=== PATIENT | male | born 1960 | race Caucasian/White ===

== ENCOUNTER 2020-03-05 08:10 | Outpatient (RCR) | payer MEDICARE, MEDICAID, SELFPAY | END 2020-05-14 08:17 | disposition home or self-care (01) | LOC: HO.WCC 08:10 | PROVIDERS: Visit Provider Surgery | DX: E11.621 Type 2 diabetes mellitus with foot ulcer (principal); L97.522 Non-pressure chronic ulcer of other part of left foot with fat layer exposed | CPT/HCPCS: 11042; 97597; 99212 ==

== ENCOUNTER → 2020-07-28 08:32 | Outpatient (BNVA) | payer MEDICARE, MEDICAID, SELFPAY | PROVIDERS: PCP Internal Medicine; Visit Provider Nurse Practitioner Gerontology | CPT/HCPCS: Q3014 ==

== ENCOUNTER 2020-08-13 08:03 | Outpatient (RCR) | payer MEDICARE, MEDICAID, SELFPAY | END 2020-11-25 13:22 | disposition home or self-care (01) | LOC: HO.WCC 08:03 | PROVIDERS: PCP Internal Medicine; Visit Provider Surgery | DX: E11.621 Type 2 diabetes mellitus with foot ulcer (principal); L97.522 Non-pressure chronic ulcer of other part of left foot with fat layer exposed; E11.51 Type 2 diabetes mellitus with diabetic peripheral angiopathy without gangrene; F17.210 Nicotine dependence, cigarettes, uncomplicated; I10 Essential (primary) hypertension; L84 Corns and callosities; Z79.899 Other long term (current) drug therapy; Z89.412 Acquired absence of left great toe; Z71.6 Tobacco abuse counseling | CPT/HCPCS: 11042; 15271; 15275; 99212; Q4187 ==

== ENCOUNTER 2020-08-27 08:54 | Outpatient (REF) | payer MEDICARE, MEDICAID, SELFPAY ==
[2020-08-27 10:54] LABS: MANUAL DIFF FLAG NO
[2020-08-27 11:04] LABS: Basophils Absolute Auto 0.1 X10*3/uL (0.0-0.2); Basophils Percent Auto 0.7 % (0-2); Eosinophils Absolute Auto 0.1 X10*3/uL (0.0-0.4); Eosinophils Percent Auto 0.7 % (0-4); Hematocrit 46.3 % (42-52); Hemoglobin 14.6 g/dl (14.0-18.0); Imm Gran Abs Auto 0.08 X10*3/uL (0.00-0.03); Imm Gran Pct Auto 0.8 % (0.0-0.4); Lymphocytes Absolute Auto 1.7 X10*3/uL (1.2-4.9); Lymphocytes Percent Auto 16.5 % (20-40); Mean Corpuscular HGB Conc 31.5 g/dl (31.0-36.0); Mean Corpuscular Hemoglobin 29.3 pg (27.0-33.0); Mean Platelet Volume 10.4 fL (9.4-12.4); Monocytes Absolute Auto 0.9 X10*3/uL (0.1-1.2); Monocytes Percent Auto 9.1 % (2-11); Neutrophils Absolute Auto 7.3 X10*3/uL (2.0-8.3); Neutrophils Percent Auto 72.2 % (45-73); Platelet Count 257 X10*3/uL (160-400); Red Blood Count 4.98 X10*6/uL (4.60-5.80); Red Cell Distribution Width 13.6 % (11.0-16.0); White Blood Count 10.1 X10*3/uL (4.8-10.8)
[2020-08-27 11:12] LABS: Glucose Urine UA >=1000 MG/DL (NEG); Leukocyte Esterase Urine NEG (NEG); Nitrite Urine NEG (NEG); PH 5.5 (5.0-8.0); Urine Blood TRACE (NEG); Urine Ketones NEG (NEG); Urine Protein 1+ MG/DL (NEG-TRACE)
[2020-08-27 11:15] LABS: Appearance Urine CLEAR; Color Urine YELLOW
[2020-08-27 11:20] LABS: Estimated Average Glucose 252 mg/dL; Hemoglobin A1c % 10.4 %
[2020-08-27 11:29] LABS: RBC Urine 0-2 /HPF (0); Squamous Epithelial Cell Urine TRACE /LPF; WBC Urine 0-2 /HPF (0-4)
[2020-08-27 11:32] LABS: Alanine Aminotransferase 13 U/L (0-40); Albumin Level 4.1 g/dL (3.5-5.0); Alkaline Phosphatase 90 U/L (39-117); Anion Gap 15 (12-20); Aspartate Amino Transferase 10 U/L (5-37); Bilirubin Total 0.4 mg/dL (0.0-1.0); Blood Urea Nitrogen 23 mg/dL (9-16); Calcium 9.2 mg/dL (8.4-10.2); Carbon Dioxide 26 mmol/L (22-29); Chloride 103 mmol/L (96-108); Cholesterol 163 mg/dL; Estimated Glomerular Filt Rate 55; Glucose Fasting 305 mg/dL (60-99); HDL Cholesterol 32 mg/dL; LDL Cholesterol Calculated 96 mg/dl; Potassium 4.8 mmol/L (3.3-5.1); Sodium 139 mmol/L (135-145); Triglycerides 175 mg/dL
[2020-08-27 11:37] LABS: Creatinine Urine 60.67 mg/dL; Microalbum/Creatinine Ratio Ur 413.7 ug/mg cr
[2020-08-27 11:57] LABS: TSH reflex Free T4 3.71 uIU/mL (0.32-4.0)
== END 2020-08-27 08:55 | disposition home or self-care (01) ==
LOC: HO.LAB 08:54
PROVIDERS: Absent Provider Nurse Practitioner Gerontology; PCP Internal Medicine; Visit Provider Internal Medicine
DX: I10 Essential (primary) hypertension (principal); L97.529 Non-pressure chronic ulcer of other part of left foot with unspecified severity; I73.9 Peripheral vascular disease, unspecified; E11.52 Type 2 diabetes mellitus with diabetic peripheral angiopathy with gangrene; E11.29 Type 2 diabetes mellitus with other diabetic kidney complication; E66.9 Obesity, unspecified
CPT/HCPCS: 36415; 80053; 80061; 81001; 81003; 82043; 83036; 84443; 85025

== ENCOUNTER → 2020-09-09 08:24 | Outpatient (BNVA) | payer MEDICARE, MEDICAID, SELFPAY | PROVIDERS: PCP Internal Medicine; Visit Provider Nurse Practitioner Gerontology | DX: E11.65 Type 2 diabetes mellitus with hyperglycemia (principal); E11.29 Type 2 diabetes mellitus with other diabetic kidney complication; E66.09 Other obesity due to excess calories; Z68.31 Body mass index [BMI] 31.0-31.9, adult; R80.9 Proteinuria, unspecified; I10 Essential (primary) hypertension; Z71.3 Dietary counseling and surveillance | CPT/HCPCS: Q3014 ==

== ENCOUNTER 2020-10-01 10:48 | Outpatient (REF) | payer MEDICARE, MEDICAID, SELFPAY ==
--- NOTE | ~2020-10-01 | US_ITS ---
EXAMINATION: COLOR-FLOW DUPLEX IMAGING OF THE BILATERAL LOWER EXTREMITY ARTERIAL SYSTEM. VELOCITY MEASUREMENTS THROUGHOUT THE FEMORAL ARTERIES WITH ANKLE-BRACHIAL PERIPHERAL ARTERIAL TESTING. CLINICAL INFORMATION: This is a 60-year-old male with bilateral peripheral vascular disease. Interventional Radiologist: Christian Magdaleno M.D., F.S.I.R., F.Marylin.C.R. RIGHT FEMORAL RUNOFF VELOCITIES: The right common femoral artery measures 93 cm/s and monophasic. The right profunda femoral artery is 47 cm/s and is monophasic. Right proximal superficial femoral artery measures 83 cm/s and monophasic. Mid superficial femoral artery is 97 cm/s and monophasic. Distal right superficial femoral artery measures 66 cm/s and is monophasic. Right popliteal velocity measures 40 cm/s and is monophasic. The posterior tibial artery velocity measures 22 cm/s and was monophasic. The right ankle-brachial index is 0.76. LEFT FEMORAL RUNOFF VELOCITIES: The left common femoral artery measures 147 cm/s and triphasic. The left profunda femoral artery is 58 cm/s and is biphasic. Left proximal superficial femoral artery measures 134 cm/s and monophasic. Mid superficial femoral artery is 119 cm/s and monophasic. Distal left superficial femoral artery measures 80 to cm/s and is monophasic. Left popliteal velocity measures 39 cm/s and is monophasic. The posterior tibial artery velocity measures 57 cm/s and was monophasic. The left ankle-brachial index is 0.75. US/US DYLAN complete IMPRESSION: 1. The right there is monophasic flow throughout the arterial runoff without evidence of focal stenosis. This could represent atherosclerotic inflow disease on the left side. The disease appears to be mild-moderate at rest. 2. On the left there is no focal hemodynamically significant stenosis. However, there are monophasic waveforms throughout the superficial femoral artery and calf vessels. There is mild-moderate hemodynamically significant disease base of the ankle-brachial index.
--- NOTE | ~2020-10-01 | US_ITS ---
EXAMINATION: COLOR-FLOW DUPLEX IMAGING OF THE BILATERAL LOWER EXTREMITY ARTERIAL SYSTEM. VELOCITY MEASUREMENTS THROUGHOUT THE FEMORAL ARTERIES WITH ANKLE-BRACHIAL PERIPHERAL ARTERIAL TESTING. CLINICAL INFORMATION: This is a 60-year-old male with bilateral peripheral vascular disease. Interventional Radiologist: Christian Magdaleno M.D., F.S.I.R., F.A.C.R. RIGHT FEMORAL RUNOFF VELOCITIES: The right common femoral artery measures 93 cm/s and monophasic. The right profunda femoral artery is 47 cm/s and is monophasic. Right proximal superficial femoral artery measures 83 cm/s and monophasic. Mid superficial femoral artery is 97 cm/s and monophasic. Distal right superficial femoral artery measures 66 cm/s and is monophasic. Right popliteal velocity measures 40 cm/s and is monophasic. The posterior tibial artery velocity measures 22 cm/s and was monophasic. The right ankle-brachial index is 0.76. LEFT FEMORAL RUNOFF VELOCITIES: The left common femoral artery measures 147 cm/s and triphasic. The left profunda femoral artery is 58 cm/s and is biphasic. Left proximal superficial femoral artery measures 134 cm/s and monophasic. Mid superficial femoral artery is 119 cm/s and monophasic. Distal left superficial femoral artery measures 80 to cm/s and is monophasic. Left popliteal velocity measures 39 cm/s and is monophasic. The posterior tibial artery velocity measures 57 cm/s and was monophasic. The left ankle-brachial index is 0.75. US/US arterial duplex LE BI IMPRESSION: 1. The right there is monophasic flow throughout the arterial runoff without evidence of focal stenosis. This could represent atherosclerotic inflow disease on the left side. The disease appears to be mild-moderate at rest. 2. On the left there is no focal hemodynamically significant stenosis. However, there are monophasic waveforms throughout the superficial femoral artery and calf vessels. There is mild-moderate hemodynamically significant disease base of the ankle-brachial index.
== END 2020-10-01 10:49 | disposition home or self-care (01) ==
LOC: HO.US 10:48
PROVIDERS: Visit Provider Surgery Vascular Surgery
DX: I73.9 Peripheral vascular disease, unspecified (principal)
CPT/HCPCS: 93923; 93925

== ENCOUNTER → 2020-10-13 10:31 | Outpatient (BNVA) | payer MEDICARE, MEDICAID, SELFPAY | PROVIDERS: PCP Internal Medicine; Visit Provider Dietitian, Registered | DX: E11.29 Type 2 diabetes mellitus with other diabetic kidney complication (principal) | CPT/HCPCS: 97802 ==

== ENCOUNTER → 2020-10-27 13:34 | Outpatient (BNVA) | payer MEDICARE, MEDICAID, SELFPAY | PROVIDERS: PCP Internal Medicine; Visit Provider Nurse Practitioner Gerontology | DX: E11.65 Type 2 diabetes mellitus with hyperglycemia (principal); E11.29 Type 2 diabetes mellitus with other diabetic kidney complication; R80.9 Proteinuria, unspecified; I10 Essential (primary) hypertension; E66.09 Other obesity due to excess calories; Z68.31 Body mass index [BMI] 31.0-31.9, adult | CPT/HCPCS: Q3014 ==

== ENCOUNTER → 2020-12-30 12:12 | Outpatient (BNVA) | payer MEDICARE, MEDICAID, SELFPAY | PROVIDERS: PCP Internal Medicine; Visit Provider Nurse Practitioner Gerontology | DX: E11.65 Type 2 diabetes mellitus with hyperglycemia (principal); E11.29 Type 2 diabetes mellitus with other diabetic kidney complication; E66.09 Other obesity due to excess calories; I10 Essential (primary) hypertension; R80.9 Proteinuria, unspecified; Z68.31 Body mass index [BMI] 31.0-31.9, adult | CPT/HCPCS: Q3014 ==

== ENCOUNTER 2021-05-14 09:19 | Outpatient (RCR) | payer MEDICARE, MEDICAID, SELFPAY ==
--- NOTE | ~2021-05-14 | XR_ITS ---
EXAMINATION: XR FOOT, LEFT CLINICAL INFORMATION: History of left transmetatarsal amputation, fifth, ostial. COMPARISON: September 21, 2018 TECHNIQUE: AP, lateral, and oblique views of the left foot. FINDINGS: There is osteopenia visualized bones. Since previous examination patient is status post Lisfranc amputation. There is some difficulty in visualizing lateral portion of the cuboid bone cortex as well as some indistinctness of the lateral cuneiform. I cannot definitely exclude osteomyelitis on these images. The patient has had other foot x-rays post amputation another institution these would be of help in comparison. No gas within the soft tissues is appreciated. Achilles calcaneal spur present. XR/XR foot LT min 3V IMPRESSION: Status post Lisfranc amputation with poorly visualized cortex about the anterolateral cuboid and distal lateral aspect of the third cuneiform which could be related to osteomyelitis but with osteopenia and postsurgical change this is difficult to evaluate on plain film study.
[2021-05-14 11:17] LABS: MANUAL DIFF FLAG NO
[2021-05-14 11:49] LABS: Basophils Absolute Auto 0.1 X10*3/uL (0.0-0.2); Basophils Percent Auto 0.5 % (0-2); Eosinophils Percent Auto 0.4 % (0-4); Hematocrit 42.7 % (42.0-52.0); Hemoglobin 13.6 g/dl (14.0-18.0); Imm Gran Abs Auto 0.06 X10*3/uL (0.00-0.03); Imm Gran Pct Auto 0.6 % (0.0-0.4); Lymphocytes Absolute Auto 1.2 X10*3/uL (1.2-4.9); Mean Corpuscular HGB Conc 31.9 g/dl (31.0-36.0); Mean Corpuscular Hemoglobin 29.8 pg (27.0-33.0); Mean Corpuscular Volume 93.6 fL (80.0-98.0); Mean Platelet Volume 11.1 fL (9.4-12.4); Monocytes Absolute Auto 1.1 X10*3/uL (0.1-1.2); Monocytes Percent Auto 10.2 % (2-11); Neutrophils Absolute Auto 8.3 x10*3/uL (2.0-8.3); Neutrophils Percent Auto 77.3 % (45-73); Platelet Count 311 X10*3/uL (160-400); Red Blood Count 4.56 X10*6/uL (4.60-5.80); Red Cell Distribution Width 12.5 % (11.0-16.0); White Blood Count 10.8 X10*3/uL (4.8-10.8)
[2021-05-14 12:05] LABS: Anion Gap 15 (12-20); Blood Urea Nitrogen 15 mg/dL (9-16); Calcium 9.5 mg/dL (8.4-10.2); Carbon Dioxide 28 mmol/L (22-29); Chloride 102 mmol/L (96-108); Estimated Glomerular Filt Rate 59; Glucose Random 327 mg/dL (60-115); Potassium 4.7 mmol/L (3.3-5.1); Sodium 140 mmol/L (135-145)
[2021-05-14 12:43] LABS: Erythrocyte Sedimentation Rate 78 MM/HR (0-15)
[2021-05-14 13:58] LABS: Estimated Average Glucose 263 mg/dL; Hemoglobin A1c % 10.8 %
== END 2021-06-09 15:34 | disposition home or self-care (01) ==
LOC: HO.WCC 09:19
PROVIDERS: PCP Internal Medicine; Visit Provider Physician Assistant
DX: E11.621 Type 2 diabetes mellitus with foot ulcer (principal); L97.522 Non-pressure chronic ulcer of other part of left foot with fat layer exposed; M71.072 Abscess of bursa, left ankle and foot; T87.81 Dehiscence of amputation stump; E11.69 Type 2 diabetes mellitus with other specified complication; M86.8X7 Other osteomyelitis, ankle and foot; E11.51 Type 2 diabetes mellitus with diabetic peripheral angiopathy without gangrene; F17.210 Nicotine dependence, cigarettes, uncomplicated; Z79.84 Long term (current) use of oral hypoglycemic drugs; Z89.412 Acquired absence of left great toe; Z89.422 Acquired absence of other left toe(s); Z71.6 Tobacco abuse counseling; Z79.82 Long term (current) use of aspirin; Z79.01 Long term (current) use of anticoagulants; Z79.2 Long term (current) use of antibiotics; Z79.899 Other long term (current) drug therapy; Z95.818 Presence of other cardiac implants and grafts
CPT/HCPCS: 10060; 11042; 36415; 73630; 80048; 83036; 85025; 85652; 86140; 87071; 87077; 87147; 87186; 87205; 99215

== ENCOUNTER 2021-06-02 11:42 | Inpatient (IN) | payer MEDICARE, MEDICAID, SELFPAY ==
--- NOTE | ~2021-06-02 | XR_ITS ---
EXAMINATION: XR FOOT, LEFT CLINICAL INFORMATION: Infection COMPARISON: Left foot radiographs 05/14/2021. TECHNIQUE: AP, lateral, and oblique views of the left foot. FINDINGS: There is been prior Lisfranc amputation. There are scattered gas in the plantar lateral soft tissues. The cuboid appears mottled and now irregular in contour on the lateral view, likely osteomyelitis. Possibility of pathologic fracture cannot be excluded. Results called to Jenna Alexander NP in the emergency department at 1625 hours. XR/XR foot LT 2V IMPRESSION: 1. Infection with some gas bubbles in the plantar lateral soft tissues. 2. Ill-defined mineralization cuboid subtle irregular contour on lateral view, likely osteomyelitis. Possibility of pathologic fracture cannot be excluded.
--- NOTE | ~2021-06-02 | CT_ITS ---
EXAMINATION: CT ANGIOGRAM LEFT LOWER EXTREMITY. CLINICAL INFORMATION: Infection. Concern for osteomyelitis. COMPARISON: The frontal radiograph on 06/02/2021. TECHNIQUE: Routine lower extremity CTA protocol was performed with contrast utilizing 80 mL of Omnipaque 350. Multiplanar reformatted images and MIP images were created and reviewed. This CT examination was performed using dose optimization techniques as appropriate, variously including the following: *Automated exposure control *Adjustment of mA and/or kV according to patient size (this includes techniques or standardized protocols for targeted exams where dose is matched to indication/reason for exam; i.e. extremities or head) *Use of iterative reconstruction technique DLP: 106 mGy-cm FINDINGS: Left lower extremity runoff reveals a widely patent popliteal artery. The tibioperoneal trunk is widely patent. The anterior tibial artery is patent proximally and tapers gradually at the level of the midcalf. There is diminutive flow to the distal calf; however, it is not seen beyond the ankle. The posterior tibial artery is widely patent to the foot. The peroneal artery is seen to the level of the ankle. There is extensive subcutaneous edema of the distal calf and ankle. Extensive edema and subcutaneous gas is seen throughout the soft tissues of the ankle and foot. Gas is seen throughout the subcutaneous tissues and also seen involving essentially all the bones of the foot and ankle including the distal tibia and fibula, calcaneus, bones of the midfoot and the remaining metatarsals. The patient is post Lisfranc amputation. CT/CT angio LE LT IMPRESSION: Left lower extremity runoff reveals a widely patent posterior tibial artery which is seen to the level of the foot. The peroneal artery is seen to the level of the ankle. The anterior tibial artery is markedly diminutive caliber and is seen to the level of the distal calf. There is extensive subcutaneous edema and gas seen throughout the soft tissues and osseous structures of the ankle and foot concerning for infection with bone and soft tissue involvement.
[2021-06-02 14:47] VITALS: BP 157/66; PULSE 94; RESP 18; TEMP 36.9; O2SAT 99; BMI 33.6
[2021-06-02 15:26] LABS: Basophils Absolute Auto 0.1 X10*3/uL (0.0-0.2); Basophils Percent Auto 0.2 % (0-2); Eosinophils Percent Auto 0.1 % (0-4); Hemoglobin 11.7 g/dl (14.0-18.0); Imm Gran Pct Auto 2.5 % (0.0-0.4); Lymphocytes Absolute Auto 1.2 X10*3/uL (1.2-4.9); Lymphocytes Percent Auto 5.1 % (20-40); MANUAL DIFF FLAG SCAN; Mean Corpuscular HGB Conc 30.8 g/dl (31.0-36.0); Mean Corpuscular Hemoglobin 28.1 pg (27.0-33.0); Mean Corpuscular Volume 91.1 fL (80.0-98.0); Monocytes Percent Auto 4.3 % (2-11); Neutrophils Absolute Auto 21.4 x10*3/uL (2.0-8.3); Neutrophils Percent Auto 87.8 % (45-73); Platelet Count 342 X10*3/uL (160-400); Red Blood Count 4.17 X10*6/uL (4.60-5.80); Red Cell Distribution Width 14.4 % (11.0-16.0); SCAN SMEAR FLAG 1; White Blood Count 24.3 X10*3/uL (4.8-10.8)
[2021-06-02 15:37] LABS: Lactic Acid 1.7 mmol/L (0.5-2.0)
[2021-06-02 15:50] LABS: SLIDE REVIEW VERIFIED
[2021-06-02 16:17] LABS: Anion Gap 15 (12-20); Blood Urea Nitrogen 30 mg/dL (9-16); Carbon Dioxide 30 mmol/L (22-29); Chloride 93 mmol/L (96-108); Creatinine Clr Calc Pharmacy 58.9; Estimated Glomerular Filt Rate 46; Glucose Random 675 mg/dL (60-115); Potassium 5.6 mmol/L (3.3-5.1); Sodium 132 mmol/L (135-145)
--- NOTE | 2021-06-02 16:49 | ED_ITS ---
HPI - Wound/Laceration General Chief Complaint: Wound/Laceration Stated Complaint: wound care clinic referral Time Seen by Provider: 06/02/21 16:25 Source: patient Mode of arrival: wheelchair Limitations: no limitations History of Present Illness HPI narrative: 60-year-old male presents from [place] wound care for evaluation of worsening chronic left foot wound. Onset (ago): unknown Extremity Location: left: foot Patient tetanus UTD: Yes Associated symptoms: pain Treatments prior to arrival: bandage Related Data Home Medications Medication Instructions Recorded Confirmed aripiprazole 20 mg tablet 20 mg PO DAILY tab 07/28/20 06/02/21 dorzolamide 22.3 mg-timolol 6.8 1 drp OPHTHALMIC (EYE) BEDTIME 06/02/21 06/02/21 mg/mL eye drops dorzolamide 22.3 mg-timolol 6.8 2 drp OPHTHALMIC (EYE) DAILY 06/02/21 06/02/21 mg/mL eye drops empagliflozin 25 mg tablet 1 tab PO DAILY 06/02/21 06/02/21 (Jardiance) netarsudil 0.02 %-latanoprost 1 drp OPHTHALMIC (EYE) 06/02/21 0.005 % eye drops (Rocklatan) Previous Rx's Medication Instructions Recorded lancets 33 gauge (TRUEplus Lancets) #100 ea 10/27/20 lisinopril 40 mg tablet 40 mg PO DAILY #30 tab 01/05/21 metformin 500 mg tablet 1,000 mg PO BID #120 tab 04/12/21 amlodipine 10 mg tablet 10 mg PO DAILY #30 tab 05/17/21 dulaglutide 0.75 mg/0.5 mL 0.75 mg (0.5 mL) SUBCUT QWEEK #2 ml 05/19/21 subcutaneous pen injector (Trulicity) Allergies Allergy/AdvReac Type Severity Reaction Status Date / Time No Known Allergies Allergy Verified 02/24/21 15:40 [No Known Allergies*] Review of Systems Review of Systems: Constitutional: No Fever, No Chills ENT/Mouth: No Ear Pain, No Hoarseness, No sore throat Eyes: No Eye Pain, No Swelling, No Redness, No Foreign Body Cardiovascular: No Chest Pain, No SOB Respiratory: No Cough, No Dyspnea Gastrointestinal: No Nausea, No Vomiting, No Diarrhea, No abdominal Pain Genitourinary: No Dysuria, No Hematuria Musculoskeletal: positive left foot pain, No Myalgias, No Joint Swelling Skin: Chronic left foot wound, No Skin lacerations, No rash Neuro: No Weakness, positive peripheral Numbness and diabetic neuropathy, No Paresthesias, No Loss of Consciousness, No Dizziness, No Headache Psych: No Anxiety/Panic, No Depression Heme/Lymph: no easy bruising, no Lymphadenopathy Endocrine: No Polyuria, No Polydipsia Yes all other systems are reviewed and are negative [facility] Past Medical History Attestation statement: The following information was validated with the patient. Source: old records reviewed Medical History Benign essential hypertension BMI 31.0-31.9,adult Depression Diabetes mellitus with hyperglycemia Essential hypertension Foot ulcer, left Hearing loss Neuropathy Obesity (BMI 30-39.9) Obesity due to excess calories Peripheral artery disease Proteinuria Smoker Type 2 diabetes mellitus with diabetic peripheral angiopathy with gangrene Type 2 diabetes mellitus with hyperglycemia, without long-term current use of insulin Type 2 diabetes mellitus with other diabetic kidney complication Vision impairment Surgical History History of amputation of left great toe History of throat surgery History of transmetatarsal amputation of left foot Hx of colonoscopy Hx of eye surgery Family History Family History Father No problems noted. Mother Cancer Maternal Grandfather CVD (cardiovascular disease) Diabetes Maternal Grandmother CVD (cardiovascular disease) Social History Social History Household Members: None Housing: Apartment Alcohol intake: never Patient Tobacco Use Status: Current everyday Tobacco user Cigarette Packs Per Day: 1 Second Hand Smoke Exposure: Yes Use of substances other than those prescribed or required for medical reasons: No Advance Directives: No Advance Directives Information Provided: No service: No Current occupational status: disabled Physical Exam Vital Signs: Vital Signs: Last Vital Signs Temp 98.2 F 06/02/21 17:21 Pulse 80 06/02/21 20:10 Resp 19 06/02/21 20:10 BP 133/59 L 06/02/21 20:10 Pulse Ox 98 06/02/21 20:10 BMI result Body Mass Index 33.6 Appearance: Alert. Oriented X3. No acute distress. Eyes: Pupils equal, round and reactive to light. ENT: Pharynx normal. Moist mucous membranes. Neck: Normal inspection. Neck supple. CVS: Normal heart rate and rhythm. Pulses normal. Respiratory: No respiratory distress. Breath sounds normal. Abdomen: Soft and nontender. Skin: Skin warm and dry. Normal skin color. Normal skin turgor. Extremities: Chronic left lower extremity wounds. Neuro: No motor deficit. No sensory deficit. Cranial nerves 2-12 intact. Course Course Course Narrative: 4:25 p.m. call from Radiology regarding finding of likely osteomyelitis to the left lower extremity. Patient is currently in the waiting room. Discussed findings charge nurse. 5:00 p.m. patient updated that with starting IV antibiotics, the patient will be admitted for osteomyelitis. I did discuss case with Dr. Smith, surgeon that referred patient to the emergency department for evaluation from the wound clinic. I discussed labs, we will fluid resuscitate and then order imaging with contrast. 5:10 p.m. patient will be resuscitated with 2 L of fluid, per ideal body weight. Zosyn, and vancomycin ordered. Will repeat labs once fluid resuscitation of 2 L is complete. Blood sugar elevated, ordered 10 IV and 10 subQ insulin. 6:20 p.m. Repeat labs within normal limits. CTA is pending. 7:45 p.m. discussion with hospitalist, plan of care is to admit for osteomyelitis. Consultations Consultation #1: Laura Time: 17:01 Consultation #2: Kristofer Time: 17:32 Consultation #3: Anthony Time: 19:45 MDM - Wound/Laceration MDM Narrative Medical decision making narrative: Chronic left lower extremity wound, osteomyelitis, sepsis Medical Records Attestation: I reviewed the patient's medical records. Lab Data Attestation: I reviewed the patient's lab results. Result diagrams: 06/02/21 15:19 06/02/21 18:17 Labs: Lab Results 06/02/21 06/02/21 06/02/21 Range/Units 15:19 15:19 15:19 WBC 24.3 H (4.8-10.8) X10*3/uL RBC 4.17 L (4.60-5.80) X10*6/uL Hgb 11.7 L (14.0-18.0) g/dl Hct 38.0 L (42.0-52.0) % MCV 91.1 (80.0-98.0) fL MCH 28.1 (27.0-33.0) pg MCHC 30.8 L (31.0-36.0) g/dl RDW 14.4 (11.0-16.0) % Plt Count 342 (160-400) X10*3/uL MPV 12.0 (9.4-12.4) fL Immature Gran % (Auto) 2.5 H (0.0-0.4) % Neut % (Auto) 87.8 H (45-73) % Lymph % (Auto) 5.1 L (20-40) % [place] % (Auto) 4.3 (2-11) % Eos % (Auto) 0.1 (0-4) % Baso % (Auto) 0.2 (0-2) % Lymph # (Auto) 1.2 (1.2-4.9) X10*3/uL [place] # (Auto) 1.0 (0.1-1.2) X10*3/uL Eos # (Auto) 0.0 (0.0-0.4) X10*3/uL Baso # (Auto) 0.1 (0.0-0.2) X10*3/uL Abs Immat Gran (auto) 0.60 H (0.00-0.03) X10*3/uL Absolute Neuts (auto) 21.4 H (2.0-8.3) x10*3/uL Absolute Nucleated RBC 0.000 (0.0-0.012) X10*3/uL Nucleated RBC % (auto) 0.0 (0.0-0.2) /100WBC Smear Tech's Comments VERIFIED Sodium 132 L (135-145) mmol/L Potassium 5.6 H (3.3-5.1) mmol/L Chloride 93 L (96-108) mmol/L Carbon Dioxide 30 H (22-29) mmol/L Anion Gap 15 (12-20) BUN 30 H D (9-16) mg/dL Creatinine 1.54 H (0.5-1.4) mg/dL Estim Creat Clear Calc 58.9 Estimated GFR 46 POC Glucose (60-115) mg/dL Random Glucose 675 H* (60-115) mg/dL Lactic Acid 1.7 (0.5-2.0) mmol/L Calcium 9.0 (8.4-10.2) mg/dL Urine Color Urine Appearance Urine pH (5.0-8.0) Ur Specific [place] (1.005-1.025) Urine Protein (NEG-TRACE) MG/DL Urine Glucose (UA) (NEG) MG/DL Urine Ketones (NEG) MG/DL Urine Blood (NEG) Urine Nitrite (NEG) Ur Leukocyte Esterase (NEG) Urine RBC (0) /HPF Urine WBC (0-4) /HPF Ur Squamous Epith Cells /LPF Urine Bacteria /LPF Urine Yeast /HPF Urine Opiates Screen (Not Detect) Urine Fentanyl Screen (Not Detect) Ur Barbiturates Screen (Not Detect) Ur Phencyclidine Scrn (Not Detect) Ur Amphetamines Screen (Not Detect) U Benzodiazepines Scrn (Not Detect) Urine Cocaine Screen (Not Detect) U Marijuana (THC) Screen (Not Detect) Acetone, Qual Negative (Negative) COVID-19 (GILDA) (Negative) COVID-19 Clin Com 06/02/21 06/02/21 06/02/21 Range/Units 16:57 17:30 18:15 WBC (4.8-10.8) X10*3/uL RBC (4.60-5.80) X10*6/uL Hgb (14.0-18.0) g/dl Hct (42.0-52.0) % MCV (80.0-98.0) fL MCH (27.0-33.0) pg MCHC (31.0-36.0) g/dl RDW (11.0-16.0) % Plt Count (160-400) X10*3/uL MPV (9.4-12.4) fL Immature Gran % (Auto) (0.0-0.4) % Neut % (Auto) (45-73) % Lymph % (Auto) (20-40) % [place] % (Auto) (2-11) % Eos % (Auto) (0-4) % Baso % (Auto) (0-2) % Lymph # (Auto) (1.2-4.9) X10*3/uL [place] # (Auto) (0.1-1.2) X10*3/uL Eos # (Auto) (0.0-0.4) X10*3/uL Baso # (Auto) (0.0-0.2) X10*3/uL Abs Immat Gran (auto) (0.00-0.03) X10*3/uL Absolute Neuts (auto) (2.0-8.3) x10*3/uL Absolute Nucleated RBC (0.0-0.012) X10*3/uL Nucleated RBC % (auto) (0.0-0.2) /100WBC Smear Tech's Comments Sodium (135-145) mmol/L Potassium (3.3-5.1) mmol/L Chloride (96-108) mmol/L Carbon Dioxide (22-29) mmol/L Anion Gap (12-20) BUN (9-16) mg/dL Creatinine (0.5-1.4) mg/dL Estim Creat Clear Calc Estimated GFR POC Glucose 559 H* 419 H* (60-115) mg/dL Random Glucose (60-115) mg/dL Lactic Acid (0.5-2.0) mmol/L Calcium (8.4-10.2) mg/dL Urine Color Urine Appearance Urine pH (5.0-8.0) Ur Specific [place] (1.005-1.025) Urine Protein (NEG-TRACE) MG/DL Urine Glucose (UA) (NEG) MG/DL Urine Ketones (NEG) MG/DL Urine Blood (NEG) Urine Nitrite (NEG) Ur Leukocyte Esterase (NEG) Urine RBC (0) /HPF Urine WBC (0-4) /HPF Ur Squamous Epith Cells /LPF Urine Bacteria /LPF Urine Yeast /HPF Urine Opiates Screen (Not Detect) Urine Fentanyl Screen (Not Detect) Ur Barbiturates Screen (Not Detect) Ur Phencyclidine Scrn (Not Detect) Ur Amphetamines Screen (Not Detect) U Benzodiazepines Scrn (Not Detect) Urine Cocaine Screen (Not Detect) U Marijuana (THC) Screen (Not Detect) Acetone, Qual (Negative) COVID-19 (GILDA) Negative (Negative) COVID-19 Clin Com See Note 06/02/21 06/02/21 06/02/21 Range/Units 18:17 19:07 19:07 WBC (4.8-10.8) X10*3/uL RBC (4.60-5.80) X10*6/uL Hgb (14.0-18.0) g/dl Hct (42.0-52.0) % MCV (80.0-98.0) fL MCH (27.0-33.0) pg MCHC (31.0-36.0) g/dl RDW (11.0-16.0) % Plt Count (160-400) X10*3/uL MPV (9.4-12.4) fL Immature Gran % (Auto) (0.0-0.4) % Neut % (Auto) (45-73) % Lymph % (Auto) (20-40) % [place] % (Auto) (2-11) % Eos % (Auto) (0-4) % Baso % (Auto) (0-2) % Lymph # (Auto) (1.2-4.9) X10*3/uL [place] # (Auto) (0.1-1.2) X10*3/uL Eos # (Auto) (0.0-0.4) X10*3/uL Baso # (Auto) (0.0-0.2) X10*3/uL Abs Immat Gran (auto) (0.00-0.03) X10*3/uL Absolute Neuts (auto) (2.0-8.3) x10*3/uL Absolute Nucleated RBC (0.0-0.012) X10*3/uL Nucleated RBC % (auto) (0.0-0.2) /100WBC Smear Tech's Comments Sodium 136 (135-145) mmol/L Potassium 4.5 (3.3-5.1) mmol/L Chloride 102 (96-108) mmol/L Carbon Dioxide 28 (22-29) mmol/L Anion Gap 11 L (12-20) BUN 28 H (9-16) mg/dL Creatinine 1.14 (0.5-1.4) mg/dL Estim Creat Clear Calc 79.6 Estimated GFR > 60 POC Glucose (60-115) mg/dL Random Glucose 380 H* (60-115) mg/dL Lactic Acid (0.5-2.0) mmol/L Calcium 7.9 L D (8.4-10.2) mg/dL Urine Color YELLOW Urine Appearance CLEAR Urine pH 5.5 (5.0-8.0) Ur Specific [place] 1.015 (1.005-1.025) Urine Protein 1+ H (NEG-TRACE) MG/DL Urine Glucose (UA) >=1000 H (NEG) MG/DL Urine Ketones NEG (NEG) MG/DL Urine Blood 3+ H (NEG) Urine Nitrite POS H (NEG) Ur Leukocyte Esterase NEG (NEG) Urine RBC 1-4 (0) /HPF Urine WBC 15-29 H (0-4) /HPF Ur Squamous Epith Cells TRACE /LPF Urine Bacteria 1+ /LPF Urine Yeast TRACE /HPF Urine Opiates Screen Not Detected (Not Detect) Urine Fentanyl Screen Not Detected (Not Detect) Ur Barbiturates Screen Not Detected (Not Detect) Ur Phencyclidine Scrn Not Detected (Not Detect) Ur Amphetamines Screen Not Detected (Not Detect) U Benzodiazepines Scrn Not Detected (Not Detect) Urine Cocaine Screen Not Detected (Not Detect) U Marijuana (THC) Screen POSITIVE H (Not Detect) Acetone, Qual (Negative) COVID-19 (GILDA) (Negative) COVID-19 Clin Com Imaging Data Left foot x-ray: Attestation: I personally reviewed and interpreted this imaging study as follows: Radiologist's impression: EXAMINATION: XR FOOT, LEFT CLINICAL INFORMATION: Infection? COMPARISON: Left foot radiographs 05/14/2021.? TECHNIQUE: AP, lateral, and oblique views of the left foot. FINDINGS: There is been prior Lisfranc amputation. There are scattered gas in the plantar lateral soft tissues. The cuboid appears mottled and now irregular in contour on the lateral view, likely osteomyelitis. Possibility of pathologic fracture cannot be excluded.? Results called to Jenna Alexander NP in the emergency department at 1625 hours. XR/XR foot LT 2V IMPRESSION: 1. Infection with some gas bubbles in the plantar lateral soft tissues. 2. Ill-defined mineralization cuboid subtle irregular contour on lateral view, likely osteomyelitis. Possibility of pathologic fracture cannot be excluded. CT angio left lower extremity: Attestation: I personally reviewed and interpreted this imaging study as follows: Radiologist's impression: FINDINGS: Left lower extremity runoff reveals a widely patent popliteal artery. The tibioperoneal trunk is widely patent. The anterior tibial artery is patent proximally and tapers gradually at the level of the midcalf. There is diminutive flow to the distal calf; however, it is not seen beyond the ankle. The posterior tibial artery is widely patent to the foot. The peroneal artery is seen to the level of the ankle. There is extensive subcutaneous edema of the distal calf and ankle. Extensive edema and subcutaneous gas is seen throughout the soft tissues of the ankle and foot. Gas is seen throughout the subcutaneous tissues and also seen involving essentially all the bones of the foot and ankle including the distal tibia and fibula, calcaneus, bones of the midfoot and the remaining metatarsals. The patient is post Lisfranc amputation. CT/CT angio LE LT IMPRESSION: Left lower extremity runoff reveals a widely patent posterior tibial artery which is seen to the level of the foot. The peroneal artery is seen to the level of the ankle. The anterior tibial artery is markedly diminutive caliber and is seen to the level of the distal calf. ? There is extensive subcutaneous edema and gas seen throughout the soft tissues and osseous structures of the ankle and foot concerning for infection with bone and soft tissue involvement. Critical Care Time Critical Care Time Critical Care Time: Yes Total Critical Care Time: 65 Attestation: I have personally provided critical care time exclusive of time spent on separately billable procedures. Time includes review of laboratory data, radiology results, discussion with consultants, and monitoring for potential decompensation. Interventions were performed as documented. Discharge Plan Discharge Clinical Impression: Acute UTI Diabetes mellitus with hyperglycemia Qualifiers: Diabetes mellitus type: type 2 Diabetes mellitus manager intermediate insulin use: unspecified correction insulin use status Qualified Code(s): E11.65 - Type 2 diabetes mellitus with hyperglycemia Osteomyelitis Qualifiers: Osteomyelitis type: other chronic Osteomyelitis location: foot Laterality: left Qualified Code(s): M86.672 - Other chronic osteomyelitis, left ankle and foot Patient Disposition: Admitted As Inpatient
[2021-06-02 17:02] LABS: Glucose, Whole Blood 559 mg/dL (60-115)
--- NOTE | 2021-06-02 17:13 | PC.NURSE ---
[facility] acute care registered nurse Marily can be reached at [phone] or [phone]
[2021-06-02] MEDS: 0.9 % Sodium Chloride 1,000 ML 999 ML IVCONT ×2 (17:16→17:17)
[2021-06-02] MEDS: Insulin Regular, Human 100 UNIT/ML 3 ML VIAL 10 UNIT IVPUSH (17:17)
[2021-06-02] MEDS: Piperacillin Sodium/Tazobactam 3.375 GM in 0.9 % Sodium Chloride 50 ML IV ×2 (17:17→23:24)
[2021-06-02 17:21] VITALS: BP 134/71; PULSE 85; RESP 16; TEMP 36.8; O2SAT 98
[2021-06-02] MEDS: Insulin Lispro 100 UNIT/ML 3 ML VIAL 10 UNIT SUBCUT ×2 (17:29→23:24)
--- NOTE | 2021-06-02 17:50 | PHA.MEDREC ---
Pharmacy Consult ? Medication Reconciliation Pharmacy has completed the medication reconciliation. NO REMARKABLE ISSUES. Leticia Baxter RP
[2021-06-02 17:58] LABS: COVID-19 Test Negative (Negative)
[2021-06-02] MEDS: vancomycin HCL 1,250 MG in 0.9 % Sodium Chloride 250 ML 166.67 MG IV (18:19)
[2021-06-02 18:24] LABS: Acetone, serum QL Negative (Negative)
[2021-06-02 18:37] LABS: Glucose, Whole Blood 419 mg/dL (60-115)
[2021-06-02 18:55] LABS: Anion Gap 11 (12-20); Blood Urea Nitrogen 28 mg/dL (9-16); Calcium 7.9 mg/dL (8.4-10.2); Carbon Dioxide 28 mmol/L (22-29); Chloride 102 mmol/L (96-108); Creatinine Clr Calc Pharmacy 79.6; Estimated Glomerular Filt Rate > 60; Potassium 4.5 mmol/L (3.3-5.1); Sodium 136 mmol/L (135-145)
[2021-06-02 19:19] LABS: Glucose Random 380 mg/dL (60-115)
[2021-06-02 19:19] LABS: Appearance Urine CLEAR; Color Urine YELLOW; Glucose Urine UA >=1000 MG/DL (NEG); Leukocyte Esterase Urine NEG (NEG); Nitrite Urine POS (NEG); PH 5.5 (5.0-8.0); Specific Gravity - Urine 1.015 (1.005-1.025); UACC Culture Trigger YES; Urine Blood 3+ (NEG); Urine Ketones NEG (NEG); Urine Protein 1+ MG/DL (NEG-TRACE)
[2021-06-02 19:31] LABS: Bacteria Urine 1+ /LPF; Squamous Epithelial Cell Urine TRACE /LPF
[2021-06-02 19:49] LABS: Amphetamine Screen Urine Not Detected (Not Detect); Barbiturates, Urine Not Detected (Not Detect); Benzodiazepines Screen Urine Not Detected (Not Detect); Cannabinoid Screen Urine POSITIVE (Not Detect); Cocaine Screen Urine Not Detected (Not Detect); Fentanyl, urine Not Detected (Not Detect); Opiate Screen Urine Not Detected (Not Detect); Phencyclidine Screen Urine Not Detected (Not Detect)
[2021-06-02] MEDS: iohexoL 350 MG/ML 100 ML INFUS..BTL 85 ML IV (20:01)
[2021-06-02 20:10] VITALS: BP 133/59; PULSE 80; RESP 19; O2SAT 98
--- NOTE | 2021-06-02 22:04 | PM.IMHP ---
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 patient reports that he has had the left lower extremity wound for a long time, has been following with the wound clinic but has not been improving. He has had pain 5/10 in that leg chronically, he reports significant drainage and malodorous discharge. He otherwise denies any fever, no chills, no headache or change in vision, no chest pain abdominal pain no nausea or vomiting, no diarrhea constipation, no urinary symptoms. On arrival to the ED patient hemodynamically stable no significant abnormal vitals Labs are significant for WBC count of 24.3, hemoglobin of 11.7, sodium of 132, potassium of 5.6, BUN of 30, creatinine of 1.54 with a baseline around 1.2, glucose of 675, UA positive for nitrites and WBC left foot x-ray showed infection with some gas bubbles in the plantar lateral soft tissue, mineralization and subtle irregular contour on lateral view likely osteomyelitis CT angiogram shows left lower extremity runoff reveals a widely patent posterior tibial artery, the anterior to artery is markedly diminutive caliber, extensive subcutaneous edema and gas seen throughout the soft tissue and osseous structures of the ankle and foot concerning for infection with bone and soft tissue involvement patient will be admitted for further management Review of Systems Review of Systems: Yes all other systems are reviewed and are negative [facility] Medical History Benign essential hypertension BMI 31.0-31.9,adult Depression Diabetes mellitus with hyperglycemia Essential hypertension Foot ulcer, left Hearing loss Neuropathy Obesity (BMI 30-39.9) Obesity due to excess calories Peripheral artery disease Proteinuria Smoker Type 2 diabetes mellitus with diabetic peripheral angiopathy with gangrene Type 2 diabetes mellitus with hyperglycemia, without long-term current use of insulin Type 2 diabetes mellitus with other diabetic kidney complication Vision impairment Family History Father No problems noted. Mother Cancer Maternal Grandfather CVD (cardiovascular disease) Diabetes Maternal Grandmother CVD (cardiovascular disease) Surgical History History of amputation of left great toe History of throat surgery History of transmetatarsal amputation of left foot Hx of colonoscopy Hx of eye surgery Social History Household Members: None Housing: Apartment Do you presently have visiting nurse or other home services: No Alcohol intake: never Patient Tobacco Use Status: Current everyday Tobacco user Tobacco use type: Cigarette Cigarette Packs Per Day: 0.5 Cigarettes Per Day: 10.0 Smoked in Last 30 Days: Yes e-Cigarette/Vaping Use: Never Used Patient Interested in Nicotine Replacement: No Second Hand Smoke Exposure: Yes Use of substances other than those prescribed or required for medical reasons: Yes Substance Use Type: Marijuana Substance Use Frequency: Occasionally Last Used Substance: Unknown Currently Displaying Signs/Symptoms of Drug Intoxication Withdrawal: No Any prior treatment program specific to substance use: No Have you been hit, kicked, punched, or otherwise hurt by someone within the past year? If so, by whom?: No Do you feel safe in your current relationship?: No Current Relationship Is there a partner from a previous relationship who is making you feel unsafe now?: No Are you made to feel afraid or neglected: No Advance Directives: No Advance Directives Information Provided: No Advance Directives on File: No Do you have thoughts of harming others: None Do you have a plan to hurt others: No Plan Recently lost weight without trying: No Eating poorly because of decreased appetite: No Nutrition Risks: No Nutritional Risk Poor oral hygiene: No service: No Current occupational status: disabled Meds Allergies Allergy/AdvReac Type Severity Reaction Status Date / Time No Known Allergies Allergy Verified 02/24/21 15:40 [No Known Allergies*] Home Medications Medication Instructions Recorded Confirmed Last Taken Type aripiprazole 20 mg tablet 20 mg PO DAILY tab 07/28/20 06/02/21 06/01/21 History dorzolamide 22.3 mg-timolol 6.8 1 drp OPHTHALMIC (EYE) BEDTIME 06/02/21 06/02/21 06/01/21 History mg/mL eye drops dorzolamide 22.3 mg-timolol 6.8 2 drp OPHTHALMIC (EYE) DAILY 06/02/21 06/02/21 06/01/21 History mg/mL eye drops empagliflozin 25 mg tablet 1 tab PO DAILY 06/02/21 06/02/21 06/01/21 History (Jardiance) netarsudil 0.02 %-latanoprost 1 drp OPHTHALMIC (EYE) DAILY 06/02/21 06/02/21 06/01/21 History 0.005 % eye drops (Rocklatan) Physical Exam Vital Signs and Narrative: Vital Signs: Last Vital Signs Temp 98.2 F 06/02/21 17:21 Pulse 80 06/02/21 20:10 Resp 19 06/02/21 20:10 BP 133/59 L 06/02/21 20:10 Pulse Ox 98 06/02/21 20:10 BMI result Body Mass Index 33.6 Const: General: cooperative and no acute distress Orientation/consciousness: patient oriented x3 Eyes: General: appearance normal, both eyes and all related structures Pupils: Equal, round and reactive pupils present Resp: Effort & Inspection: normal respiratory effort Auscultation: clear to auscultation bilaterally Cardio: Rate: regular rate Rhythm: regular rhythm GI: Palpation (GI): Soft to palpation Auscultation: normal bowel sounds Skin: Other: left foot ulcer/wound with eschar tissue, significantly malodorous and draining thick drainage Neuro: General: patient oriented x3 Cranial nerves: Yes Equal, round and reactive pupils present Cognition (Neuro): normal cognition Extrem: Other: left foot wound, infected, draining malodorous purulent drainage General: Yes no pedal edema Results Labs CBC and Chem 7: 06/02/21 15:19 06/02/21 18:17 Labs: Laboratory Results - last 24 hr 06/02/21 06/02/21 06/02/21 15:19 15:19 15:19 MCV 91.1 MCH 28.1 MCHC 30.8 L RDW 14.4 Plt Count 342 MPV 12.0 Immature Gran % (Auto) 2.5 H Neut % (Auto) 87.8 H Lymph % (Auto) 5.1 L [place] % (Auto) 4.3 Eos % (Auto) 0.1 Baso % (Auto) 0.2 Lymph # (Auto) 1.2 [place] # (Auto) 1.0 Eos # (Auto) 0.0 Baso # (Auto) 0.1 Abs Immat Gran (auto) 0.60 H Absolute Neuts (auto) 21.4 H Absolute Nucleated RBC 0.000 Nucleated RBC % (auto) 0.0 Smear Tech's Comments VERIFIED Anion Gap 15 Estim Creat Clear Calc 58.9 Estimated GFR 46 POC Glucose Random Glucose 675 H* Lactic Acid 1.7 Calcium 9.0 Urine Color Urine Appearance Urine pH Ur Specific [place] Urine Protein Urine Glucose (UA) Urine Ketones Urine Blood Urine Nitrite Ur Leukocyte Esterase Urine RBC Urine WBC Ur Squamous Epith Cells Urine Bacteria Urine Yeast Urine Opiates Screen Urine Fentanyl Screen Ur Barbiturates Screen Ur Phencyclidine Scrn Ur Amphetamines Screen U Benzodiazepines Scrn Urine Cocaine Screen U Marijuana (THC) Screen Acetone, Qual Negative COVID-19 (GILDA) COVID-19 Clin Com 06/02/21 06/02/21 06/02/21 16:57 17:30 18:15 MCV MCH MCHC RDW Plt Count MPV Immature Gran % (Auto) Neut % (Auto) Lymph % (Auto) [place] % (Auto) Eos % (Auto) Baso % (Auto) Lymph # (Auto) [place] # (Auto) Eos # (Auto) Baso # (Auto) Abs Immat Gran (auto) Absolute Neuts (auto) Absolute Nucleated RBC Nucleated RBC % (auto) Smear Tech's Comments Anion Gap Estim Creat Clear Calc Estimated GFR POC Glucose 559 H* 419 H* Random Glucose Lactic Acid Calcium Urine Color Urine Appearance Urine pH Ur Specific [place] Urine Protein Urine Glucose (UA) Urine Ketones Urine Blood Urine Nitrite Ur Leukocyte Esterase Urine RBC Urine WBC Ur Squamous Epith Cells Urine Bacteria Urine Yeast Urine Opiates Screen Urine Fentanyl Screen Ur Barbiturates Screen Ur Phencyclidine Scrn Ur Amphetamines Screen U Benzodiazepines Scrn Urine Cocaine Screen U Marijuana (THC) Screen Acetone, Qual COVID-19 (GILDA) Negative COVID-19 Clin Com See Note 06/02/21 06/02/21 06/02/21 18:17 19:07 19:07 MCV MCH MCHC RDW Plt Count MPV Immature Gran % (Auto) Neut % (Auto) Lymph % (Auto) [place] % (Auto) Eos % (Auto) Baso % (Auto) Lymph # (Auto) [place] # (Auto) Eos # (Auto) Baso # (Auto) Abs Immat Gran (auto) Absolute Neuts (auto) Absolute Nucleated RBC Nucleated RBC % (auto) Smear Tech's Comments Anion Gap 11 L Estim Creat Clear Calc 79.6 Estimated GFR > 60 POC Glucose Random Glucose 380 H* Lactic Acid Calcium 7.9 L D Urine Color YELLOW Urine Appearance CLEAR Urine pH 5.5 Ur Specific [place] 1.015 Urine Protein 1+ H Urine Glucose (UA) >=1000 H Urine Ketones NEG Urine Blood 3+ H Urine Nitrite POS H Ur Leukocyte Esterase NEG Urine RBC 1-4 Urine WBC 15-29 H Ur Squamous Epith Cells TRACE Urine Bacteria 1+ Urine Yeast TRACE Urine Opiates Screen Not Detected Urine Fentanyl Screen Not Detected Ur Barbiturates Screen Not Detected Ur Phencyclidine Scrn Not Detected Ur Amphetamines Screen Not Detected U Benzodiazepines Scrn Not Detected Urine Cocaine Screen Not Detected U Marijuana (THC) Screen POSITIVE H Acetone, Qual COVID-19 ([facility]DA) COVID-19 Clin Com Imaging Radiologist's Impressions: Impressions Foot X-Ray 06/02/21 15:10 IMPRESSION: 1. Infection with some gas bubbles in the plantar lateral soft tissues. 2. Ill-defined mineralization cuboid subtle irregular contour on lateral view, likely osteomyelitis. Possibility of pathologic fracture cannot be excluded. Lower Extremity CTA 06/02/21 20:02 IMPRESSION: Left lower extremity runoff reveals a widely patent posterior tibial artery which is seen to the level of the foot. The peroneal artery is seen to the level of the ankle. The anterior tibial artery is markedly diminutive caliber and is seen to the level of the distal calf. There is extensive subcutaneous edema and gas seen throughout the soft tissues and osseous structures of the ankle and foot concerning for infection with bone and soft tissue involvement. Assessment and Plan (1) Osteomyelitis: Qualifiers: Laterality: left Osteomyelitis location: foot Osteomyelitis type: other chronic Qualified Code(s): M86.672 - Other chronic osteomyelitis, left ankle and foot Status: Acute (2) Acute UTI: Status: Acute this is a 60-year-old male with past medical history of diabetes as well as PVD status post left foot metatarsal amputation presents to the hospital with nonhealing # left foot osteomyelitis - significant nonhealing wound - CT angiogram of the left extremities above - will start him on broad-spectrum antibiotics - cultures obtained- follow - infectious Disease, vascular surgery as well as general surgery consulted # UTI - asymptomatic - will be on IV antibiotics as above # hyperglycemia - 2/2 DM - treated - improved - LDSSI, diabetic diet # HTN - stable - continue home medications DVT ppx: scds in anticipation of surgical intervention Quality Stroke Does the patient have a stroke diagnosis?: No VTE Prior VTE?: No VTE Risk Level:: Medical - moderate - high VTE Device Contraindication: Treatment Not Indicated VTE Drug Contraindication: N/A - Med Ordered
[2021-06-02 22:27] LABS: Glucose, Whole Blood 166 mg/dL (60-115)
[2021-06-02 23:26] VITALS: BP 129/56; PULSE 75; RESP 14; O2SAT 96
[2021-06-03] MEDS: 0.9 % Sodium Chloride Flush 3 ML SYRINGE IVFLUSH ×4 (00:40→20:56)
--- NOTE | 2021-06-03 00:40 | PC.NURSE ---
Report called to inpt RN. Pt to floor in stable condition w/ all belongings
[2021-06-03 02:10] VITALS: BMI 25.9
[2021-06-03 04:00] VITALS: BP 157/67; PULSE 84; RESP 17; TEMP 37; O2SAT 96
--- NOTE | 2021-06-03 04:03 | PC.NURSE ---
PATIENT IS A 60 YEAR OLD MALE ADMITTED TO ROOM 368 VIA STRETCHER FROM ED WITH NON-HEALING LEFT FOOT ULCER AFTER BEING SEEN IN WOUND CLINIC AND FOUND TO HAVE WORSENING CONDITION. TREATMENT IN ED SUGGESTING OSTEOMYELITIS. PT HAS PREVIOUS AMPUTATION ALL TOES, INCLUDING GREAT TOE OF LEFT FOOT. WHEN PT ARRIVED HIS CURRENT DRESSING WAS SATURATED WITH RED BROWN, VERY FOUL ODOR DRAINAGE. PT DENIED PAIN, ADMISSION COMPLETED AND THEREAFTER DRSG REMOVED, CLEANSED WITH NS, WET TO DRY DRESSING APPLIED WITH ABD PADS , AND KERLIX WRAP. FOOT ELEVATED ON PILLOW, HOWEVER, PT ASKED FOR SEQUENTIAL STOCKINGS TO B E OFF. SEE PHOTOS FOR WOUND DESCRIPTION; LARGE, BLACK, MACERATED, WITH ACTIVE FOUL BROWN DRAINAGE. PT TOLERATED DSG CHANGE WELL, ACTUALLY DOZED ON AND OFF THRU PROCEDURE. NOTED PT HAS AN ID, VASCULAR, AND SURGICAL CONSULTS. PLEASE SEE PHOTOS FOR DETAILS. VSS.
[2021-06-03] MEDS: Piperacillin Sodium/Tazobactam 3.375 GM in 0.9 % Sodium Chloride 50 ML IV ×3 (05:35→18:48)
[2021-06-03] MEDS: vancomycin HCL 750 MG in 0.9 % Sodium Chloride 250 ML 265 MG IV (06:15)
[2021-06-03 06:45] LABS: MANUAL DIFF FLAG NO
[2021-06-03 06:55] LABS: Basophils Percent Auto 0.2 % (0-2); Eosinophils Absolute Auto 0.1 X10*3/uL (0.0-0.4); Eosinophils Percent Auto 0.5 % (0-4); Hematocrit 28.8 % (42.0-52.0); Imm Gran Abs Auto 0.44 X10*3/uL (0.00-0.03); Imm Gran Pct Auto 2.3 % (0.0-0.4); Lymphocytes Absolute Auto 1.3 X10*3/uL (1.2-4.9); Lymphocytes Percent Auto 6.6 % (20-40); Mean Corpuscular HGB Conc 30.9 g/dl (31.0-36.0); Mean Corpuscular Volume 90.6 fL (80.0-98.0); Mean Platelet Volume 12.1 fL (9.4-12.4); Monocytes Percent Auto 5.3 % (2-11); Neutrophils Absolute Auto 16.2 x10*3/uL (2.0-8.3); Neutrophils Percent Auto 85.1 % (45-73); Platelet Count 281 X10*3/uL (160-400); Red Blood Count 3.18 X10*6/uL (4.60-5.80); Red Cell Distribution Width 13.9 % (11.0-16.0); White Blood Count 19.1 X10*3/uL (4.8-10.8)
[2021-06-03 07:04] LABS: Anion Gap 13 (12-20); Blood Urea Nitrogen 22 mg/dL (9-16); Calcium 7.7 mg/dL (8.4-10.2); Carbon Dioxide 25 mmol/L (22-29); Chloride 106 mmol/L (96-108); Estimated Glomerular Filt Rate > 60; Glucose Random 138 mg/dL (60-115); Potassium 4.3 mmol/L (3.3-5.1); Sodium 140 mmol/L (135-145)
[2021-06-03 07:08] VITALS: BP 135/63; PULSE 77; RESP 18; TEMP 36.9; O2SAT 93
[2021-06-03 07:10] LABS: Hemoglobin 8.9 g/dl (14.0-18.0)
[2021-06-03 07:13] LABS: Glucose, Whole Blood 165 mg/dL (60-115)
[2021-06-03] MEDS: ARIPiprazole 20 MG TABLET PO (10:11)
[2021-06-03] MEDS: Acetaminophen 325 MG TABLET 650 MG PO ×2 (10:11→19:42)
[2021-06-03] MEDS: amLODIPine Besylate 10 MG TABLET PO (10:11)
[2021-06-03] MEDS: Dorzolamide/Timolo 2.23%/0.68% 10 ML DRBTL 2 DROP EYE-BOTH (10:11)
[2021-06-03] MEDS: lisinopriL 40 MG TABLET PO (10:11)
--- NOTE | 2021-06-03 10:16 | P.CONGS_ITS ---
History of Present Illness Consult details Consult date: 06/03/21 <Sylvie Kelly PA-C - Last Filed: 06/03/21 10:47> Reason for consult: other (osteomyelitis) <JIGNA Wheat Last Filed: 06/03/21 10:47> Requesting physician: Marv Jaramillo <Sylvie Kelly PA-C - Last Filed: 06/03/21 10:47> Narrative: 60 year old male with PMH of diabetes mellitus, PAD, HTN, smoker who was sent to the ED by the wound care center for non healing left foot wound and concern for osteomyelitis. Patient developed left great toe ulcer in 2018 which progressed to gangrene and had endovascular intervention with Dr. Lopez in 10/21 with stenting of L common iliac and R external iliac. He ultimately required left great toe amputation and eventually a left transmetatarsal amputation in . Patient has made no lifestyle changes following this. He has continued to smoke. He reports he developed this current wound on his left foot several months after the amputation. He has since been followed by the wound care center. He reports he is seen weekly. He reports no worsening of pain over the past couple of weeks, trauma to the area, fevers. Work up in the ED included a left foot xray which showed scattered gas in the plantar lateral soft tissues with a mottled cuboid. CT angiogram left lower extremity runoff showed extensive subcutaneous edema and gas seen throughout the soft tissue and osseous structures of the ankle and foot. He also had a leukocytosis. He was therefore admitted to the medical service for further treatment of the left foot osteomyelitis. He is on vancomycin and zosyn. Surgery has been consulted. <JIGNA Wheat Last Filed: 06/03/21 10:47> Review of Systems Constitutional: Constitutional: Denies chills and Denies fever(s) <JIGNA Wheat Last Filed: 06/03/21 10:47> ENT: Denies dizziness <JIGNA Wheat Last Filed: 06/03/21 10:47> Cardiovascular: Cardiovascular: Denies chest pain, Denies palpitations and Denies dyspnea <JIGNA Wheat Last Filed: 06/03/21 10:47> Respiratory: Respiratory: Denies dyspnea <Sylvie Kelly PA-C - Last Filed: 06/03/21 10:47> Gastrointestinal: Gastrointestinal: Denies abdominal pain, Denies nausea and Denies vomiting <Sylvie Kelly PA-C - Last Filed: 06/03/21 10:47> Integumentary/Breasts: Skin/Breast: Reports as per HPI <Sylvie Kelly PA-C Last Filed: 06/03/21 10:47> Neurologic: Denies dizziness and Denies focal weakness <Sylvie Kelly PA-C Last Filed: 06/03/21 10:47> Endocrine: Endocrine: Denies palpitations <Sylvie Kelly PA-C Last Filed: 06/03/21 10:47> [facility] Past Medical History Medical History: Medical History Benign essential hypertension BMI 31.0-31.9,adult Depression Diabetes mellitus with hyperglycemia Essential hypertension Foot ulcer, left Hearing loss Neuropathy Obesity (BMI 30-39.9) Obesity due to excess calories Peripheral artery disease Proteinuria Smoker Type 2 diabetes mellitus with diabetic peripheral angiopathy with gangrene Type 2 diabetes mellitus with hyperglycemia, without long-term current use of insulin Type 2 diabetes mellitus with other diabetic kidney complication Vision impairment <Sylvie Kelly PA-C - Last Filed: 06/03/21 10:47> Family History Family History: Family History Father No problems noted. Mother Cancer Maternal Grandfather CVD (cardiovascular disease) Diabetes Maternal Grandmother CVD (cardiovascular disease) <Sylvie Kelly PA-C Last Filed: 06/03/21 10:47> Surgical History Surgical History: Surgical History History of amputation of left great toe History of throat surgery History of transmetatarsal amputation of left foot Hx of colonoscopy Hx of eye surgery <JIGNA Wheat Last Filed: 06/03/21 10:47> Social History Social History: Social History Household Members: None Housing: Apartment Do you presently have visiting nurse or other home services: No Alcohol intake: never Patient Tobacco Use Status: Current everyday Tobacco user Tobacco use type: Cigarette Cigarette Packs Per Day: 0.5 Cigarettes Per Day: 10.0 Smoked in Last 30 Days: Yes e-Cigarette/Vaping Use: Never Used Patient Interested in Nicotine Replacement: No Second Hand Smoke Exposure: Yes Use of substances other than those prescribed or required for medical reasons: Yes Substance Use Type: Marijuana Substance Use Frequency: Occasionally Last Used Substance: Unknown Currently Displaying Signs/Symptoms of Drug Intoxication Withdrawal: No Any prior treatment program specific to substance use: No Have you been hit, kicked, punched, or otherwise hurt by someone within the past year? If so, by whom?: No Do you feel safe in your current relationship?: No Current Relationship Is there a partner from a previous relationship who is making you feel unsafe now?: No Are you made to feel afraid or neglected: No Advance Directives: No Advance Directives Information Provided: No Advance Directives on File: No Do you have thoughts of harming others: None Do you have a plan to hurt others: No Plan Recently lost weight without trying: No Eating poorly because of decreased appetite: No Nutrition Risks: No Nutritional Risk Poor oral hygiene: No service: No Current occupational status: disabled <Sylvie Kelly PA-C - Last Filed: 06/03/21 10:47> Meds Allergies/Adverse reactions: Allergies Allergy/AdvReac Type Severity Reaction Status Date / Time No Known Allergies Allergy Verified 02/24/21 15:40 [No Known Allergies*] <Sylvie Kelly PA-C - Last Filed: 06/03/21 10:47> Active Medications: Current Medications Acetaminophen (Acetaminophen 325 Mg Tablet) 650 mg PO Q6H PRN PRN Reason: Pain, Mild (Pain Scale 1-3) Last Admin: 06/03/21 10:11 Dose: 650 mg Documented by: Amlodipine Besylate (Amlodipine Besylate 10 Mg Tablet) 10 mg PO DAILY ALEXUS; Protocol Last Admin: 06/03/21 10:11 Dose: 10 mg Documented by: Aripiprazole (Aripiprazole 20 Mg Tablet) 20 mg PO DAILY COUNT INCLUDES THE [facility] Last Admin: 06/03/21 10:11 Dose: 20 mg Documented by: Dextrose (Dextrose 50 % 25 Gm/50 Ml Vial) 25 gm IVPUSH Q15M PRN; Protocol PRN Reason: per Hypoglycemia Standing Ord. Docusate Sodium (Docusate Sodium 100 Mg Capsule) 100 mg PO DAILY PRN PRN Reason: Constipation Dorzolamide/Timolol (Dorzolamide/Timolo 2.23%/0.68% 10 Ml Drbtl) 1 drop EYE- BOTH BEDTIME COUNT INCLUDES THE [facility] Last Admin: 06/02/21 23:50 Dose: Not Given Documented by: Dorzolamide/Timolol (Dorzolamide/Timolo 2.23%/0.68% 10 Ml Drbtl) 2 drop EYE- BOTH DAILY COUNT INCLUDES THE [facility] Last Admin: 06/03/21 10:11 Dose: 2 drop Documented by: Glucose (Glucose Gel 15 Gm Gel..Gram.) 15 gm PO Q15M PRN; Protocol PRN Reason: per Hypoglycemia Standing Ord. Piperacillin Sod/Tazobactam (Sod 3.375 gm/ Sodium Chloride) 50 mls @ 100 mls/hr IV Q6H COUNT INCLUDES THE [facility] Last Infusion: 06/03/21 06:06 Dose: Infused Documented by: Vancomycin HCl 750 mg/ Sodium (Chloride) 265 mls @ 265 mls/hr IV Q12H COUNT INCLUDES THE [facility] Last Infusion: 06/03/21 07:20 Dose: Infused Documented by: Insulin Human Lispro (Insulin Lispro 100 Unit/Ml 3 Ml Vial) 0 unit SUBCUT QIDACHS COUNT INCLUDES THE [facility]; Protocol Last Admin: 06/03/21 07:31 Dose: Not Given Documented by: Lisinopril (Lisinopril 40 Mg Tablet) 40 mg PO DAILY COUNT INCLUDES THE [facility]; Protocol Last Admin: 06/03/21 10:11 Dose: 40 mg Documented by: Ondansetron HCl (Ondansetron Hcl 4 Mg/2 Ml Vial) 4 mg IVPUSH Q8H PRN PRN Reason: Nausea and Vomiting Pharmacy Consult (Consult Rx Vancomycin Dosing) 1 each MISCELLANE DAILY PRN PRN Reason: Consult order Sodium Chloride (0.9 % Sodium Chloride Flush 3 Ml Syringe) 3 ml IVFLUSH QSHIFT COUNT INCLUDES THE [facility] Last Admin: 06/03/21 07:36 Dose: 3 ml Documented by: Rony Kelly PA-C - Last Filed: 06/03/21 10:47> Home medications: Home Medications Medication Instructions Recorded Confirmed Last Taken Type aripiprazole 20 mg tablet 20 mg PO DAILY tab 07/28/20 06/02/21 06/01/21 History dorzolamide 22.3 mg-timolol 6.8 1 drp OPHTHALMIC (EYE) BEDTIME 06/02/21 06/02/21 06/01/21 History mg/mL eye drops dorzolamide 22.3 mg-timolol 6.8 2 drp OPHTHALMIC (EYE) DAILY 06/02/21 06/02/21 06/01/21 History mg/mL eye drops empagliflozin 25 mg tablet 1 tab PO DAILY 06/02/21 06/02/21 06/01/21 History (Jardiance) netarsudil 0.02 %-latanoprost 1 drp OPHTHALMIC (EYE) DAILY 06/02/21 06/02/21 06/01/21 History 0.005 % eye drops (Rocklatan) <JIGNA Wheat Last Filed: 06/03/21 10:47> Physical Exam Vital Signs: Vital Signs: Last Vital Signs Temp 98.5 F 06/03/21 07:08 Pulse 77 06/03/21 07:08 Resp 18 06/03/21 07:08 BP 135/63 06/03/21 07:08 Pulse Ox 93 06/03/21 07:08 BMI result Body Mass Index 25.9 <JIGNA Wheat Last Filed: 06/03/21 10:47> Const: General: comfortable, no acute distress and alert <JIGNA Wheat Last Filed: 06/03/21 10:47> Nutritional Appearance: thin <JIGNA Wheat Last Filed: 06/03/21 10:47> Orientation/consciousness: patient oriented x3 <JIGNA Wheat Last Filed: 06/03/21 10:47> Resp: Effort & Inspection: normal respiratory effort <JIGNA Wheat Last Filed: 06/03/21 10:47> Cardio: Rate: regular rate <JIGNA Wheat Last Filed: 06/03/21 10:47> GI: Inspection: No distended <JIGNA Wheat Last Filed: 06/03/21 10:47> Palpation (GI): Soft to palpation <JIGNA Wheat Last Filed: 06/03/21 10:47> Skin: Other: warm and dry <JIGNA Wheat Last Filed: 06/03/21 10:47> Neuro: General: patient oriented x3 <JIGNA Wheat Last Filed: 06/03/21 10:47> Extrem: Other: left foot with large eschar of lateral aspect of dorsum measuring approx 8cm x 5cm, 2cm round opening of medial malleolus area with purulent drainage that extends superiorly; there is also an open wound of lateral plantar aspect with purulent drainage that appears to tunnel anteriorly; foul smelling; erythema and edema extending proximally midway to patella; some changes of anterior briggs appear to be chronic <JIGNA Wheat Last Filed: 06/03/21 10:47> Results Labs Result diagrams: : 06/03/21 06:11 06/03/21 06:11 <JIGNA Wheat Last Filed: 06/03/21 10:47> Labs: Abnormal lab results 06/02/21 06/02/21 06/02/21 Range/Units 15:19 15:19 16:57 WBC 24.3 H (4.8-10.8) X10*3/uL RBC 4.17 L (4.60-5.80) X10*6/uL Hgb 11.7 L (14.0-18.0) g/dl Hct 38.0 L (42.0-52.0) % MCHC 30.8 L (31.0-36.0) g/dl Immature Gran % (Auto) 2.5 H (0.0-0.4) % Neut % (Auto) 87.8 H (45-73) % Lymph % (Auto) 5.1 L (20-40) % Abs Immat Gran (auto) 0.60 H (0.00-0.03) X10*3/uL Absolute Neuts (auto) 21.4 H (2.0-8.3) x10*3/uL Sodium 132 L (135-145) mmol/L Potassium 5.6 H (3.3-5.1) mmol/L Chloride 93 L (96-108) mmol/L Carbon Dioxide 30 H (22-29) mmol/L Anion Gap (12-20) BUN 30 H D (9-16) mg/dL Creatinine 1.54 H (0.5-1.4) mg/dL POC Glucose 559 H* (60-115) mg/dL Random Glucose 675 H* (60-115) mg/dL Calcium (8.4-10.2) mg/dL Urine Protein (NEG-TRACE) MG/DL Urine Glucose (UA) (NEG) MG/DL Urine Blood (NEG) Urine Nitrite (NEG) Urine WBC (0-4) /HPF U Marijuana (THC) Screen (Not Detect) 06/02/21 06/02/21 06/02/21 Range/Units 18:15 18:17 19:07 WBC (4.8-10.8) X10*3/uL RBC (4.60-5.80) X10*6/uL Hgb (14.0-18.0) g/dl Hct (42.0-52.0) % MCHC (31.0-36.0) g/dl Immature Gran % (Auto) (0.0-0.4) % Neut % (Auto) (45-73) % Lymph % (Auto) (20-40) % Abs Immat Gran (auto) (0.00-0.03) X10*3/uL Absolute Neuts (auto) (2.0-8.3) x10*3/uL Sodium (135-145) mmol/L Potassium (3.3-5.1) mmol/L Chloride (96-108) mmol/L Carbon Dioxide (22-29) mmol/L Anion Gap 11 L (12-20) BUN 28 H (9-16) mg/dL Creatinine (0.5-1.4) mg/dL POC Glucose 419 H* (60-115) mg/dL Random Glucose 380 H* (60-115) mg/dL Calcium 7.9 L D (8.4-10.2) mg/dL Urine Protein 1+ H (NEG-TRACE) MG/DL Urine Glucose (UA) >=1000 H (NEG) MG/DL Urine Blood 3+ H (NEG) Urine Nitrite POS H (NEG) Urine WBC 15-29 H (0-4) /HPF U Marijuana (THC) Screen (Not Detect) 06/02/21 06/02/21 06/03/21 Range/Units 19:07 22:22 06:11 WBC 19.1 H (4.8-10.8) X10*3/uL RBC 3.18 L D (4.60-5.80) X10*6/uL Hgb 8.9 L D (14.0-18.0) g/dl Hct 28.8 L D (42.0-52.0) % MCHC 30.9 L (31.0-36.0) g/dl Immature Gran % (Auto) 2.3 H (0.0-0.4) % Neut % (Auto) 85.1 H (45-73) % Lymph % (Auto) 6.6 L (20-40) % Abs Immat Gran (auto) 0.44 H (0.00-0.03) X10*3/uL Absolute Neuts (auto) 16.2 H (2.0-8.3) x10*3/uL Sodium (135-145) mmol/L Potassium (3.3-5.1) mmol/L Chloride (96-108) mmol/L Carbon Dioxide (22-29) mmol/L Anion Gap (12-20) BUN (9-16) mg/dL Creatinine (0.5-1.4) mg/dL POC Glucose 166 H (60-115) mg/dL Random Glucose (60-115) mg/dL Calcium (8.4-10.2) mg/dL Urine Protein (NEG-TRACE) MG/DL Urine Glucose (UA) (NEG) MG/DL Urine Blood (NEG) Urine Nitrite (NEG) Urine WBC (0-4) /HPF U Marijuana (THC) Screen POSITIVE H (Not Detect) 06/03/21 06/03/21 Range/Units 06:11 07:06 WBC (4.8-10.8) X10*3/uL RBC (4.60-5.80) X10*6/uL Hgb (14.0-18.0) g/dl Hct (42.0-52.0) % MCHC (31.0-36.0) g/dl Immature Gran % (Auto) (0.0-0.4) % Neut % (Auto) (45-73) % Lymph % (Auto) (20-40) % Abs Immat Gran (auto) (0.00-0.03) X10*3/uL Absolute Neuts (auto) (2.0-8.3) x10*3/uL Sodium (135-145) mmol/L Potassium (3.3-5.1) mmol/L Chloride (96-108) mmol/L Carbon Dioxide (22-29) mmol/L Anion Gap (12-20) BUN 22 H (9-16) mg/dL Creatinine (0.5-1.4) mg/dL POC Glucose 165 H (60-115) mg/dL Random Glucose 138 H D (60-115) mg/dL Calcium 7.7 L (8.4-10.2) mg/dL Urine Protein (NEG-TRACE) MG/DL Urine Glucose (UA) (NEG) MG/DL Urine Blood (NEG) Urine Nitrite (NEG) Urine WBC (0-4) /HPF U Marijuana (THC) Screen (Not Detect) Short CBC 06/02/21 06/03/21 Range/Units 15:19 06:11 WBC 24.3 H 19.1 H (4.8-10.8) X10*3/uL Hgb 11.7 L 8.9 L D (14.0-18.0) g/dl Hct 38.0 L 28.8 L D (42.0-52.0) % Plt Count 342 281 (160-400) X10*3/uL BMP 06/02/21 06/02/21 06/03/21 15:19 18:17 06:11 Sodium 132 L 136 140 Potassium 5.6 H 4.5 4.3 Chloride 93 L 102 106 Carbon Dioxide 30 H 28 25 BUN 30 H D 28 H 22 H Creatinine 1.54 H 1.14 0.89 Calcium 9.0 7.9 L D 7.7 L Urine 06/02/21 Range/Units 19:07 Urine Color YELLOW Urine Appearance CLEAR Urine pH 5.5 (5.0-8.0) Ur Specific Wilbur 1.015 (1.005-1.025) Urine Protein 1+ H (NEG-TRACE) MG/DL Urine Glucose (UA) >=1000 H (NEG) MG/DL All other labs normal. <Sylvie Kelly PA-C - Last Filed: 06/03/21 10:47> Assessment and Plan (1) Osteomyelitis: Qualifiers: Laterality: left Osteomyelitis location: foot Ost eomyelitis type: other chronic Qualified Code(s): M86.672 - Other chronic osteomyelitis, left ankle and foot <DELFINA WheatKiran - Last Filed: 06/03/21 10:47> Status: Acute <JB WheatConsuelo - Last Filed: 06/03/21 10:47> (2) Smoker: Status: Acute <Sylvie RobinJB villagranConsuelo - Last Filed: 06/03/21 10:47> (3) Peripheral artery disease: Status: Acute <JB WheatConsuelo - Last Filed: 06/03/21 10:47> (4) Type 2 diabetes mellitus with diabetic peripheral angiopathy with gangrene: Status: Acute <JB WheatConsuelo - Last Filed: 06/03/21 10:47> 60 year old male with diabetes, PAD, smoker, hx of left toe amp and left transmetatarsal amputation with longstanding history of chronic left foot wound that is non healing. Imaging showed extensive subcutaneous edema and gas seen throughout the soft tissue and osseous structures of the left ankle and foot concerning for osteomyelitis. He has extensive wounds of the left foot and would most likely benefit from a BKA at this point. Rec continuing IV antibiotics. This is a patient of Dr. Curiel and the patient was discussed with him. Further plan dependent on vascular surgery consult. <Sylvie Kelly PA-C - Last Filed: 06/03/21 10:47> 60 year old male with diabetes, PAD, smoker, hx of left toe amp and left transmetatarsal amputation with longstanding history of chronic left foot wound that is non healing. Imaging showed extensive subcutaneous edema and gas seen throughout the soft tissue and osseous structures of the left ankle and foot concerning for osteomyelitis. He has extensive wounds of the left foot and would most likely benefit from a BKA at this point. Rec continuing IV antibiotics. This is a patient of Dr. Lopez's and the patient was discussed with him. Further plan dependent on vascular surgery consult. S/p TMA by Dr. Lopez now with left foot necrosis. Discussed with Sylvie Kelly, GERRY, and agree with the above assessment and plan. Agree with vas cular surgery consult. <Jon Pham MD - Last Filed: 06/03/21 13:48> Procedures Date of Service Date of Service: 06/03/21 <Sylvie Kelly PA-C - Last Filed: 06/03/21 10:47>
[2021-06-03 11:49] VITALS: BP 113/59; PULSE 61; RESP 18; TEMP 36; O2SAT 94
[2021-06-03 11:53] LABS: Glucose, Whole Blood 188 mg/dL (60-115)
--- NOTE | 2021-06-03 12:23 | P.CONGS_ITS ---
History of Present Illness Consult details Consult date: 06/03/21 Narrative: Very pleasant 60-year-old diabetic gentleman well known to me status post amputation. He had been doing well for significant period of time. Was lost to follow-up. He presented to the emergency room yesterday with a nonhealing left leg ulcer. He had been lost to follow-up. has been seen by the general surgery service and he is now for vascular evaluation. Review of Systems Review of Systems: Yes all other systems are reviewed and are negative Constitutional: Constitutional: Reports no additional constitutional complaints ENT: Reports Normal hearing present Cardiovascular: Cardiovascular: Denies chest pain, Denies chest pain at rest, Denies chest pain with activity and Denies pedal edema Respiratory: Respiratory: Denies cough Gastrointestinal: Gastrointestinal: Denies abdominal pain Musculoskeletal: Musculoskeletal: Denies abnormal gait, Denies muscle cramps and Denies radiating pain into limb Integumentary/Breasts: Skin/Breast: Denies skin ulcer and Denies wounds Neurologic: Reports Normal hearing present and Denies abnormal gait Psychiatric: Psychiatric: Reports no additional psychiatric complaints [facility] Past Medical History Medical History Benign essential hypertension BMI 31.0-31.9,adult Depression Diabetes mellitus with hyperglycemia Essential hypertension Foot ulcer, left Hearing loss Neuropathy Obesity (BMI 30-39.9) Obesity due to excess calories Peripheral artery disease Proteinuria Smoker Type 2 diabetes mellitus with diabetic peripheral angiopathy with gangrene Type 2 diabetes mellitus with hyperglycemia, without long-term current use of insulin Type 2 diabetes mellitus with other diabetic kidney complication Vision impairment Family History Family History Father No problems noted. Mother Cancer Maternal Grandfather CVD (cardiovascular disease) Diabetes Maternal Grandmother CVD (cardiovascular disease) Surgical History Surgical History History of amputation of left great toe History of throat surgery History of transmetatarsal amputation of left foot Hx of colonoscopy Hx of eye surgery Social History Social History Household Members: None Housing: Apartment Do you presently have visiting nurse or other home services: No Alcohol intake: never Patient Tobacco Use Status: Current everyday Tobacco user Tobacco use type: Cigarette Cigarette Packs Per Day: 0.5 Cigarettes Per Day: 10.0 Smoked in Last 30 Days: Yes e-Cigarette/Vaping Use: Never Used Patient Interested in Nicotine Replacement: No Second Hand Smoke Exposure: Yes Use of substances other than those prescribed or required for medical reasons: Yes Substance Use Type: Marijuana Substance Use Frequency: Occasionally Last Used Substance: Unknown Currently Displaying Signs/Symptoms of Drug Intoxication Withdrawal: No Any prior treatment program specific to substance use: No Have you been hit, kicked, punched, or otherwise hurt by someone within the past year? If so, by whom?: No Do you feel safe in your current relationship?: No Current Relationship Is there a partner from a previous relationship who is making you feel unsafe now?: No Are you made to feel afraid or neglected: No Advance Directives: No Advance Directives Information Provided: No Advance Directives on File: No Do you have thoughts of harming others: None Do you have a plan to hurt others: No Plan Recently lost weight without trying: No Eating poorly because of decreased appetite: No Nutrition Risks: No Nutritional Risk Poor oral hygiene: No service: No Current occupational status: disabled [employer] Allergies Allergy/AdvReac Type Severity Reaction Status Date / Time No Known Allergies Allergy Verified 02/24/21 15:40 [No Known Allergies*] Active Medications: Current Medications Acetaminophen (Acetaminophen 325 Mg Tablet) 650 mg PO Q6H PRN PRN Reason: Pain, Mild (Pain Scale 1-3) Last Admin: 06/03/21 10:11 Dose: 650 mg Documented by: Amlodipine Besylate (Amlodipine Besylate 10 Mg Tablet) 10 mg PO DAILY [facility]; Protocol Last Admin: 06/03/21 10:11 Dose: 10 mg Documented by: Aripiprazole (Aripiprazole 20 Mg Tablet) 20 mg PO DAILY [facility] Last Admin: 06/03/21 10:11 Dose: 20 mg Documented by: Dextrose (Dextrose 50 % 25 Gm/50 Ml Vial) 25 gm IVPUSH Q15M PRN; Protocol PRN Reason: per Hypoglycemia Standing Ord. Docusate Sodium (Docusate Sodium 100 Mg Capsule) 100 mg PO DAILY PRN PRN Reason: Constipation Dorzolamide/Timolol (Dorzolamide/Timolo 2.23%/0.68% 10 Ml Drbtl) 1 drop EYE- BOTH BEDTIME [facility] Last Admin: 06/02/21 23:50 Dose: Not Given Documented by: Dorzolamide/Timolol (Dorzolamide/Timolo 2.23%/0.68% 10 Ml Drbtl) 2 drop EYE- BOTH DAILY [facility] Last Admin: 06/03/21 10:11 Dose: 2 drop Documented by: Glucose (Glucose Gel 15 Gm Gel..Gram.) 15 gm PO Q15M PRN; Protocol PRN Reason: per Hypoglycemia Standing Ord. Piperacillin Sod/Tazobactam (Sod 3.375 gm/ Sodium Chloride) 50 mls @ 100 mls/hr IV Q6H [facility] Last Infusion: 06/03/21 06:06 Dose: Infused Documented by: Vancomycin HCl 750 mg/ Sodium (Chloride) 265 mls @ 265 mls/hr IV Q12H [facility] Last Infusion: 06/03/21 07:20 Dose: Infused Documented by: Insulin Human Lispro (Insulin Lispro 100 Unit/Ml 3 Ml Vial) 0 unit SUBCUT QIDACHS [facility]; Protocol Last Admin: 06/03/21 11:59 Dose: Not Given Documented by: Lisinopril (Lisinopril 40 Mg Tablet) 40 mg PO DAILY [facility]; Protocol Last Admin: 06/03/21 10:11 Dose: 40 mg Documented by: Ondansetron HCl (Ondansetron Hcl 4 Mg/2 Ml Vial) 4 mg IVPUSH Q8H PRN PRN Reason: Nausea and Vomiting Pharmacy Consult (Consult Rx Vancomycin Dosing) 1 each MISCELLANE DAILY PRN PRN Reason: Consult order Sodium Chloride (0.9 % Sodium Chloride Flush 3 Ml Syringe) 3 ml IVFLUSH QSHIFT [facility] Last Admin: 06/03/21 07:36 Dose: 3 ml Documented by: Home Medications Medication Instructions Recorded Confirmed Last Taken Type aripiprazole 20 mg tablet 20 mg PO DAILY tab 07/28/20 06/02/21 06/01/21 History dorzolamide 22.3 mg-timolol 6.8 1 drp OPHTHALMIC (EYE) BEDTIME 06/02/21 06/02/21 06/01/21 History mg/mL eye drops dorzolamide 22.3 mg-timolol 6.8 2 drp OPHTHALMIC (EYE) DAILY 06/02/21 06/02/21 06/01/21 History mg/mL eye drops empagliflozin 25 mg tablet 1 tab PO DAILY 06/02/21 06/02/21 06/01/21 History (Jardiance) netarsudil 0.02 %-latanoprost 1 drp OPHTHALMIC (EYE) DAILY 06/02/21 06/02/21 06/01/21 History 0.005 % eye drops (Rocklatan) Physical Exam Vital Signs: Vital Signs: Last Vital Signs Temp 96.8 F 06/03/21 11:49 Pulse 61 06/03/21 11:49 Resp 18 06/03/21 11:49 BP 113/59 L 06/03/21 11:49 Pulse Ox 94 06/03/21 11:49 BMI result Body Mass Index 25.9 Const: General: cooperative, healthy appearing and comfortable Orientation/consciousness: oriented to person, oriented to place and oriented to time HENMT: Head: Yes normal to inspection Neck: Neck: Yes normal visual inspection Carotids: no bruits Chest: Chest palpation & inspection: normal inspection of the chest Resp: Effort & Inspection: normal respiratory effort and able to speak in complete sentences Auscultation: clear to auscultation bilaterally, no crackles, no rales, no rhonchi and no wheezes Cardio: Rate: regular rate Rhythm: regular rhythm Heart sounds: S1 normal heart sound present and S2 normal heart sound present Bruits: no carotid bruits Peripheral pulses: Peripheral pulses 2+ throughout GI: Inspection: Yes normal to inspection Skin: Wounds: no wounds Hair: normal Neuro: General: oriented to person, oriented to place and oriented to time Cranial nerves: Yes CN's II-XII intact bilaterally and Yes Normal hearing present Cognition (Neuro): normal cognition Motor exam (neuro): 5/5 motor strength present throughout Extrem: Other: venous exam: No significant superficial varicosities or spider telangiectasias, minimal edema General: No clubbing, No cyanosis and No edema Psych: Appearance: grossly normal Mental Status: mental status grossly normal Speech and movement: Normal speech and movement present Results Labs Result diagrams: 06/03/21 06:11 06/03/21 06:11 Labs: Abnormal lab results 06/02/21 06/02/21 06/02/21 Range/Units 15:19 15:19 16:57 WBC 24.3 H (4.8-10.8) X10*3/uL RBC 4.17 L (4.60-5.80) X10*6/uL Hgb 11.7 L (14.0-18.0) g/dl Hct 38.0 L (42.0-52.0) % MCHC 30.8 L (31.0-36.0) g/dl Immature Gran % (Auto) 2.5 H (0.0-0.4) % Neut % (Auto) 87.8 H (45-73) % Lymph % (Auto) 5.1 L (20-40) % Abs Immat Gran (auto) 0.60 H (0.00-0.03) X10*3/uL Absolute Neuts (auto) 21.4 H (2.0-8.3) x10*3/uL Sodium 132 L (135-145) mmol/L Potassium 5.6 H (3.3-5.1) mmol/L Chloride 93 L (96-108) mmol/L Carbon Dioxide 30 H (22-29) mmol/L Anion Gap (12-20) BUN 30 H D (9-16) mg/dL Creatinine 1.54 H (0.5-1.4) mg/dL POC Glucose 559 H* (60-115) mg/dL Random Glucose 675 H* (60-115) mg/dL Calcium (8.4-10.2) mg/dL Urine Protein (NEG-TRACE) MG/DL Urine Glucose (UA) (NEG) MG/DL Urine Blood (NEG) Urine Nitrite (NEG) Urine WBC (0-4) /HPF U Marijuana (THC) Screen (Not Detect) 06/02/21 06/02/21 06/02/21 Range/Units 18:15 18:17 19:07 WBC (4.8-10.8) X10*3/uL RBC (4.60-5.80) X10*6/uL Hgb (14.0-18.0) g/dl Hct (42.0-52.0) % MCHC (31.0-36.0) g/dl Immature Gran % (Auto) (0.0-0.4) % Neut % (Auto) (45-73) % Lymph % (Auto) (20-40) % Abs Immat Gran (auto) (0.00-0.03) X10*3/uL Absolute Neuts (auto) (2.0-8.3) x10*3/uL Sodium (135-145) mmol/L Potassium (3.3-5.1) mmol/L Chloride (96-108) mmol/L Carbon Dioxide (22-29) mmol/L Anion Gap 11 L (12-20) BUN 28 H (9-16) mg/dL Creatinine (0.5-1.4) mg/dL POC Glucose 419 H* (60-115) mg/dL Random Glucose 380 H* (60-115) mg/dL Calcium 7.9 L D (8.4-10.2) mg/dL Urine Protein 1+ H (NEG-TRACE) MG/DL Urine Glucose (UA) >=1000 H (NEG) MG/DL Urine Blood 3+ H (NEG) Urine Nitrite POS H (NEG) Urine WBC 15-29 H (0-4) /HPF U Marijuana (THC) Screen (Not Detect) 06/02/21 06/02/21 06/03/21 Range/Units 19:07 22:22 06:11 WBC 19.1 H (4.8-10.8) X10*3/uL RBC 3.18 L D (4.60-5.80) X10*6/uL Hgb 8.9 L D (14.0-18.0) g/dl Hct 28.8 L D (42.0-52.0) % MCHC 30.9 L (31.0-36.0) g/dl Immature Gran % (Auto) 2.3 H (0.0-0.4) % Neut % (Auto) 85.1 H (45-73) % Lymph % (Auto) 6.6 L (20-40) % Abs Immat Gran (auto) 0.44 H (0.00-0.03) X10*3/uL Absolute Neuts (auto) 16.2 H (2.0-8.3) x10*3/uL Sodium (135-145) mmol/L Potassium (3.3-5.1) mmol/L Chloride (96-108) mmol/L Carbon Dioxide (22-29) mmol/L Anion Gap (12-20) BUN (9-16) mg/dL Creatinine (0.5-1.4) mg/dL POC Glucose 166 H (60-115) mg/dL Random Glucose (60-115) mg/dL Calcium (8.4-10.2) mg/dL Urine Protein (NEG-TRACE) MG/DL Urine Glucose (UA) (NEG) MG/DL Urine Blood (NEG) Urine Nitrite (NEG) Urine WBC (0-4) /HPF U Marijuana (THC) Screen POSITIVE H (Not Detect) 06/03/21 06/03/21 06/03/21 Range/Units 06:11 07:06 11:47 WBC (4.8-10.8) X10*3/uL RBC (4.60-5.80) X10*6/uL Hgb (14.0-18.0) g/dl Hct (42.0-52.0) % MCHC (31.0-36.0) g/dl Immature Gran % (Auto) (0.0-0.4) % Neut % (Auto) (45-73) % Lymph % (Auto) (20-40) % Abs Immat Gran (auto) (0.00-0.03) X10*3/uL Absolute Neuts (auto) (2.0-8.3) x10*3/uL Sodium (135-145) mmol/L Potassium (3.3-5.1) mmol/L Chloride (96-108) mmol/L Carbon Dioxide (22-29) mmol/L Anion Gap (12-20) BUN 22 H (9-16) mg/dL Creatinine (0.5-1.4) mg/dL POC Glucose 165 H 188 H (60-115) mg/dL Random Glucose 138 H D (60-115) mg/dL Calcium 7.7 L (8.4-10.2) mg/dL Urine Protein (NEG-TRACE) MG/DL Urine Glucose (UA) (NEG) MG/DL Urine Blood (NEG) Urine Nitrite (NEG) Urine WBC (0-4) /HPF U Marijuana (THC) Screen (Not Detect) Short CBC 06/02/21 06/03/21 Range/Units 15:19 06:11 WBC 24.3 H 19.1 H (4.8-10.8) X10*3/uL Hgb 11.7 L 8.9 L D (14.0-18.0) g/dl Hct 38.0 L 28.8 L D (42.0-52.0) % Plt Count 342 281 (160-400) X10*3/uL BMP 06/02/21 06/02/21 06/03/21 15:19 18:17 06:11 Sodium 132 L 136 140 Potassium 5.6 H 4.5 4.3 Chloride 93 L 102 106 Carbon Dioxide 30 H 28 25 BUN 30 H D 28 H 22 H Creatinine 1.54 H 1.14 0.89 Calcium 9.0 7.9 L D 7.7 L Urine 06/02/21 Range/Units 19:07 Urine Color YELLOW Urine Appearance CLEAR Urine pH 5.5 (5.0-8.0) Ur Specific [place] 1.015 (1.005-1.025) Urine Protein 1+ H (NEG-TRACE) MG/DL Urine Glucose (UA) >=1000 H (NEG) MG/DL All other labs normal. Assessment and Plan (1) Peripheral artery disease: Status: Acute In short patient has nonhealing left leg ulcer. Prior DYLAN was 0.75 nearly 6 months prior. He continues to deteriorate. CTA was reviewed written report and images it appears to be patent at the knee level and below-knee trifurcation appears to have occlusions. He does have an elevated white count which could be multifactorial due to his UTI and foot ulceration. I would like him to receive some antibiotics to decrease the surrounding cellulitis and treat the acute UTI prior to operative intervention. Will plan for below-knee amputation within the next few days. Thank you for allowing us to assist in his care. If there are any questions or concerns please do not hesitate to contact us. Procedures Date of Service Date of Service: 06/03/21
--- NOTE | 2021-06-03 13:27 | PC.NURSE ---
Wound assessment completed today. Patient has a diabetic foot ulcer with eschar, malodorous smell and purulent drainage. silver alginate applied to help reduce odor covered with no woven gauze and roll gauze. Patient is set to have a below the knee amputation Wednesday 06/07. Will continue to follow patient.
[2021-06-03 14:31] VITALS: BP 158/71; PULSE 74; RESP 18; TEMP 36.6; O2SAT 96
--- NOTE | 2021-06-03 14:35 | HO.PM.IMPN ---
Subjective Subjective Date of Service: 06/03/21 Interval History: the patient was seen and evaluated this morning Laying in bed, complaining of pain in his leg reporting chills No reported other overnight events. Systemic review: No fever, chills or weakness No chest pain, palpitation No shortness of breath or coughing No abdominal pain, nausea or vomiting No urinary symptoms wound in his foot Physical Exam Vital Signs: Vital Signs: Last Vital Signs Temp 97.8 F 06/03/21 14:31 Pulse 74 06/03/21 14:31 Resp 18 06/03/21 14:31 BP 158/71 H 06/03/21 14:31 Pulse Ox 96 06/03/21 14:31 BMI result Body Mass Index 25.9 Const: Other: Constitutional : Alert, oriented, not in distress Neck : Normal inspection, Supple Cardiovascular : RRR, S1 S2, no lower extremity edema Respiratory : Good bilateral air entry, no crackles, wheezes or rhonchi Gastrointestinal: soft, lax, Normal bowel sounds, Non tender Skin : Warm, Dry Musculoskeletal, left lower extremity transmetatarsal amputation with deep ulcers and falls min Ng, drainage. Neurological : Alert & oriented x3, No focal deficit Objective Data Active Medications Acetaminophen (Acetaminophen 325 Mg Tablet) 650 mg PO Q6H PRN PRN Reason: Pain, Mild (Pain Scale 1-3) Last Admin: 06/03/21 10:11 Dose: 650 mg Documented by: MAGDALENE Amlodipine Besylate (Amlodipine Besylate 10 Mg Tablet) 10 mg PO DAILY [facility]; Protocol Last Admin: 06/03/21 10:11 Dose: 10 mg Documented by: MAGDALENE Aripiprazole (Aripiprazole 20 Mg Tablet) 20 mg PO DAILY [facility] Last Admin: 06/03/21 10:11 Dose: 20 mg Documented by: MAGDALENE Dextrose (Dextrose 50 % 25 Gm/50 Ml Vial) 25 gm IVPUSH Q15M PRN; Protocol PRN Reason: per Hypoglycemia Standing Ord. Docusate Sodium (Docusate Sodium 100 Mg Capsule) 100 mg PO DAILY PRN PRN Reason: Constipation Dorzolamide/Timolol (Dorzolamide/Timolo 2.23%/0.68% 10 Ml Drbtl) 1 drop EYE-BOTH BEDTIME [facility] Last Admin: 06/02/21 23:50 Dose: Not Given Documented by: ROHITH Non-Admin Reason: Med Not Available Dorzolamide/Timolol (Dorzolamide/Timolo 2.23%/0.68% 10 Ml Drbtl) 2 drop EYE-BOTH DAILY [facility] Last Admin: 06/03/21 10:11 Dose: 2 drop Documented by: MAGDALENE Glucose (Glucose Gel 15 Gm Gel..Gram.) 15 gm PO Q15M PRN; Protocol PRN Reason: per Hypoglycemia Standing Ord. Piperacillin Sod/Tazobactam (Sod 3.375 gm/ Sodium Chloride) 50 mls @ 100 mls/hr IV Q6H [facility] Last Infusion: 06/03/21 13:03 Dose: 0 mls/hr Documented by: MAGDALENE Vancomycin HCl 750 mg/ Sodium (Chloride) 265 mls @ 265 mls/hr IV Q12H [facility] Last Infusion: 06/03/21 07:20 Dose: 0 mls/hr Documented by: NESSA Insulin Human Lispro (Insulin Lispro 100 Unit/Ml 3 Ml Vial) 0 unit SUBCUT QIDACHS [facility]; Protocol Last Admin: 06/03/21 11:59 Dose: Not Given Documented by: MAGDALENE Non-Admin Reason: NPO Lisinopril (Lisinopril 40 Mg Tablet) 40 mg PO DAILY [facility]; Protocol Last Admin: 06/03/21 10:11 Dose: 40 mg Documented by: MAGDALENE Ondansetron HCl (Ondansetron Hcl 4 Mg/2 Ml Vial) 4 mg IVPUSH Q8H PRN PRN Reason: Nausea and Vomiting Pharmacy Consult (Consult Rx Vancomycin Dosing) 1 each MISCELLANE DAILY PRN PRN Reason: Consult order Sodium Chloride (0.9 % Sodium Chloride Flush 3 Ml Syringe) 3 ml IVFLUSH QSHIFT [facility] Last Admin: 06/03/21 07:36 Dose: 3 ml Documented by: NESSA Labs CBC & Chem 7: 06/03/21 06:11 06/03/21 06:11 Labs: Laboratory Results - last 24 hr 06/02/21 06/02/21 06/02/21 15:19 15:19 15:19 MCV 91.1 MCH 28.1 MCHC 30.8 L RDW 14.4 Plt Count 342 MPV 12.0 Immature Gran % (Auto) 2.5 H Neut % (Auto) 87.8 H Lymph % (Auto) 5.1 L [place] % (Auto) 4.3 Eos % (Auto) 0.1 Baso % (Auto) 0.2 Lymph # (Auto) 1.2 [place] # (Auto) 1.0 Eos # (Auto) 0.0 Baso # (Auto) 0.1 Abs Immat Gran (auto) 0.60 H Absolute Neuts (auto) 21.4 H Absolute Nucleated RBC 0.000 Nucleated RBC % (auto) 0.0 Smear Tech's Comments VERIFIED Anion Gap 15 Estim Creat Clear Calc 58.9 Estimated GFR 46 POC Glucose Random Glucose 675 H* Lactic Acid 1.7 Calcium 9.0 Urine Color Urine Appearance Urine pH Ur Specific [place] Urine Protein Urine Glucose (UA) Urine Ketones Urine Blood Urine Nitrite Ur Leukocyte Esterase Urine RBC Urine WBC Ur Squamous Epith Cells Urine Bacteria Urine Yeast Urine Opiates Screen Urine Fentanyl Screen Ur Barbiturates Screen Ur Phencyclidine Scrn Ur Amphetamines Screen U Benzodiazepines Scrn Urine Cocaine Screen U Marijuana (THC) Screen Acetone, Qual Negative COVID-19 (GILDA) COVID-Staff Ranker 06/02/21 06/02/21 06/02/21 16:57 17:30 18:15 MCV MCH MCHC RDW Plt Count MPV Immature Gran % (Auto) Neut % (Auto) Lymph % (Auto) [place] % (Auto) Eos % (Auto) Baso % (Auto) Lymph # (Auto) [place] # (Auto) Eos # (Auto) Baso # (Auto) Abs Immat Gran (auto) Absolute Neuts (auto) Absolute Nucleated RBC Nucleated RBC % (auto) Smear Tech's Comments Anion Gap Estim Creat Clear Calc Estimated GFR POC Glucose 559 H* 419 H* Random Glucose Lactic Acid Calcium Urine Color Urine Appearance Urine pH Ur Specific [place] Urine Protein Urine Glucose (UA) Urine Ketones Urine Blood Urine Nitrite Ur Leukocyte Esterase Urine RBC Urine WBC Ur Squamous Epith Cells Urine Bacteria Urine Yeast Urine Opiates Screen Urine Fentanyl Screen Ur Barbiturates Screen Ur Phencyclidine Scrn Ur Amphetamines Screen U Benzodiazepines Scrn Urine Cocaine Screen U Marijuana (THC) Screen Acetone, Qual COVID-19 (GILDA) Negative COVID-19 Clin Com See Note 06/02/21 06/02/21 06/02/21 18:17 19:07 19:07 MCV MCH MCHC RDW Plt Count MPV Immature Gran % (Auto) Neut % (Auto) Lymph % (Auto) [place] % (Auto) Eos % (Auto) Baso % (Auto) Lymph # (Auto) [place] # (Auto) Eos # (Auto) Baso # (Auto) Abs Immat Gran (auto) Absolute Neuts (auto) Absolute Nucleated RBC Nucleated RBC % (auto) Smear Tech's Comments Anion Gap 11 L Estim Creat Clear Calc 79.6 Estimated GFR > 60 POC Glucose Random Glucose 380 H* Lactic Acid Calcium 7.9 L D Urine Color YELLOW Urine Appearance CLEAR Urine pH 5.5 Ur Specific [place] 1.015 Urine Protein 1+ H Urine Glucose (UA) >=1000 H Urine Ketones NEG Urine Blood 3+ H Urine Nitrite POS H Ur Leukocyte Esterase NEG Urine RBC 1-4 Urine WBC 15-29 H Ur Squamous Epith Cells TRACE Urine Bacteria 1+ Urine Yeast TRACE Urine Opiates Screen Not Detected Urine Fentanyl Screen Not Detected Ur Barbiturates Screen Not Detected Ur Phencyclidine Scrn Not Detected Ur Amphetamines Screen Not Detected U Benzodiazepines Scrn Not Detected Urine Cocaine Screen Not Detected U Marijuana (THC) Screen POSITIVE H Acetone, Qual COVID-19 (GILDA) COVID-19 Clin Com 06/02/21 06/03/21 06/03/21 22:22 06:11 06:11 MCV 90.6 MCH 28.0 MCHC 30.9 L RDW 13.9 Plt Count 281 MPV 12.1 Immature Gran % (Auto) 2.3 H Neut % (Auto) 85.1 H Lymph % (Auto) 6.6 L [place] % (Auto) 5.3 Eos % (Auto) 0.5 Baso % (Auto) 0.2 Lymph # (Auto) 1.3 [place] # (Auto) 1.0 Eos # (Auto) 0.1 Baso # (Auto) 0.0 Abs Immat Gran (auto) 0.44 H Absolute Neuts (auto) 16.2 H Absolute Nucleated RBC 0.000 Nucleated RBC % (auto) 0.0 Smear Tech's Comments Anion Gap 13 Estim Creat Clear Calc 86.0 Estimated GFR > 60 POC Glucose 166 H Random Glucose 138 H D Lactic Acid Calcium 7.7 L Urine Color Urine Appearance Urine pH Ur Specific [place] Urine Protein Urine Glucose (UA) Urine Ketones Urine Blood Urine Nitrite Ur Leukocyte Esterase Urine RBC Urine WBC Ur Squamous Epith Cells Urine Bacteria Urine Yeast Urine Opiates Screen Urine Fentanyl Screen Ur Barbiturates Screen Ur Phencyclidine Scrn Ur Amphetamines Screen U Benzodiazepines Scrn Urine Cocaine Screen U Marijuana (THC) Screen Acetone, Qual COVID-19 (GILDA) COVID-19 Clin Com 06/03/21 06/03/21 07:06 11:47 MCV MCH MCHC RDW Plt Count MPV Immature Gran % (Auto) Neut % (Auto) Lymph % (Auto) [place] % (Auto) Eos % (Auto) Baso % (Auto) Lymph # (Auto) [place] # (Auto) Eos # (Auto) Baso # (Auto) Abs Immat Gran (auto) Absolute Neuts (auto) Absolute Nucleated RBC Nucleated RBC % (auto) Smear Tech's Comments Anion Gap Estim Creat Clear Calc Estimated GFR POC Glucose 165 H 188 H Random Glucose Lactic Acid Calcium Urine Color Urine Appearance Urine pH Ur Specific [place] Urine Protein Urine Glucose (UA) Urine Ketones Urine Blood Urine Nitrite Ur Leukocyte Esterase Urine RBC Urine WBC Ur Squamous Epith Cells Urine Bacteria Urine Yeast Urine Opiates Screen Urine Fentanyl Screen Ur Barbiturates Screen Ur Phencyclidine Scrn Ur Amphetamines Screen U Benzodiazepines Scrn Urine Cocaine Screen U Marijuana (THC) Screen Acetone, Qual COVID-19 (GILDA) COVID-19 Clin Com Microbiology Microbiology Results: Microbiology 06/02/21 Unknown Urine Culture - Preliminary Urine clean catch - Urine isaac top Culture in progress. 06/02/21 15:19 Blood Culture - Preliminary Blood - Venous Prelim: GPC Gram Stain only 06/02/21 15:56 Blood Culture - Preliminary Blood - Venous Prelim: GPC Gram Stain only Assessment and Plan (1) Osteomyelitis: Status: Acute (2) Acute UTI: Status: Acute Assessment and Plan: this is a 60-year-old male with past medical history of diabetes as well as PVD status post left foot metatarsal amputation presents to the hospital with nonhealing # Gram-positive bacteremia 2/2 left foot osteomyelitis nonhealing wound CT angiogram of the left extremities showed anterior tibial abnormality continue broad-spectrum antibiotics cultures growing GPC, to repeat vascular surgery to do debridement on Monday Pending ID evaluation # UTI asymptomatic will be on IV antibiotics as above # hyperglycemia 2/2 DM treated improved LDSSI, diabetic diet # HTN stable continue home medications DVT ppx: scds in anticipation of surgical intervention Quality Stroke Does the patient have a stroke diagnosis?: No VTE Prior VTE?: No VTE Risk Level:: Medical - moderate - high VTE Device Contraindication: Treatment Not Indicated VTE Drug Contraindication: N/A - Med Ordered
[2021-06-03 14:36] LABS: Vancomycin Trough 10.6 mcg/mL (10.0-20.0)
--- NOTE | 2021-06-03 14:53 | MHC.CM.PN ---
CM MET WITH PT WHO REPORTS HE LIVES ALONE AND IS INDEPENDENT WITH ADLS HE REPORTS HE HAS BOTH A CANE A WALKER AND USES BOTH PT REPORTS HE IS ACTIVE WITH A [facility] AND [employer], KIESHA. PT DECLINES TO COMPLETE A HCP PT CONFIRMS HIS PCP IS AURA ARTEAGA DELIVERED CURRENT DC PLAN IS HOME WITH RESUMPTION OF [facility] AND [employer] TO TRANSPORT
--- NOTE | 2021-06-03 15:38 | MHC.CLN ---
NUTRITION CONSULT FOR SKIN INTEGRITY. CURRENT SKIN ISSUES NOT PRESSURE RELATED. NO NEW NUTRITION INTERVENTIONS AT THIS TIME.
[2021-06-03 15:46] LABS: Glucose, Whole Blood 283 mg/dL (60-115)
[2021-06-03] MEDS: vancomycin HCL 1,000 MG in 0.9 % Sodium Chloride 250 ML 270 MG IV (17:01)
[2021-06-03] MEDS: Insulin Lispro 100 UNIT/ML 3 ML VIAL SUBCUT ×3 (17:24→21:24)
[2021-06-03 20:00] VITALS: BP 146/69; PULSE 83; RESP 18; TEMP 36.3; O2SAT 97
[2021-06-03] MEDS: Dorzolamide/Timolo 2.23%/0.68% 10 ML DRBTL 1 DROP EYE-BOTH (20:57)
[2021-06-03 21:02] LABS: Glucose, Whole Blood 382 mg/dL (60-115)
[2021-06-04] VITALS (7 sets, daily range): BP systolic 138–168; BP diastolic 64–88; PULSE 64–76; RESP 16–18; TEMP 36–37.6; O2SAT 95–99
[2021-06-04] MEDS: Piperacillin Sodium/Tazobactam 3.375 GM in 0.9 % Sodium Chloride 50 ML IV ×5 (00:05→23:23)
[2021-06-04] MEDS: Acetaminophen 325 MG TABLET 650 MG PO ×3 (03:49→17:31)
[2021-06-04] MEDS: vancomycin HCL 1,000 MG in 0.9 % Sodium Chloride 250 ML 270 MG IV ×2 (03:49→17:25)
[2021-06-04 06:39] LABS: Hematocrit 28.3 % (42.0-52.0); Hemoglobin 8.9 g/dl (14.0-18.0); Mean Corpuscular HGB Conc 31.4 g/dl (31.0-36.0); Mean Corpuscular Hemoglobin 28.2 pg (27.0-33.0); Mean Corpuscular Volume 89.6 fL (80.0-98.0); Mean Platelet Volume 11.9 fL (9.4-12.4); Platelet Count 281 X10*3/uL (160-400); Red Blood Count 3.16 X10*6/uL (4.60-5.80); White Blood Count 16.6 X10*3/uL (4.8-10.8)
[2021-06-04 06:57] LABS: Anion Gap 8 (12-20); Blood Urea Nitrogen 21 mg/dL (9-16); Calcium 7.2 mg/dL (8.4-10.2); Carbon Dioxide 28 mmol/L (22-29); Chloride 105 mmol/L (96-108); Creatinine Clr Calc Pharmacy 78.9; Estimated Glomerular Filt Rate > 60; Glucose Random 231 mg/dL (60-115); Potassium 4.3 mmol/L (3.3-5.1); Sodium 137 mmol/L (135-145)
[2021-06-04 07:33] LABS: Glucose, Whole Blood 220 mg/dL (60-115)
[2021-06-04] MEDS: amLODIPine Besylate 10 MG TABLET PO (08:48)
[2021-06-04] MEDS: ARIPiprazole 20 MG TABLET PO (08:48)
[2021-06-04] MEDS: 0.9 % Sodium Chloride Flush 3 ML SYRINGE IVFLUSH ×3 (08:49→20:42)
[2021-06-04] MEDS: Dorzolamide/Timolo 2.23%/0.68% 10 ML DRBTL 2 DROP EYE-BOTH (08:49)
[2021-06-04] MEDS: Insulin Lispro 100 UNIT/ML 3 ML VIAL SUBCUT ×4 (08:49→20:42)
[2021-06-04] MEDS: lisinopriL 40 MG TABLET PO (08:50)
[2021-06-04 08:55] LABS: Albumin Level 2.1 g/dL (3.5-5.0)
--- NOTE | 2021-06-04 09:08 | P.PNVS_ITS ---
Subjective Subjective Date of Service: 06/04/21 Patient reports: no new complaints and feels better Interval history: Patient seen and examined. No significant events overnight. He reports he is doing significantly better. Tolerating regular diet. No significant pain in the left lower extremity. Physical Exam Vital Signs: Vital Signs: Last Vital Signs Temp 97.6 F 06/04/21 07:31 Pulse 64 06/04/21 07:31 Resp 16 06/04/21 07:31 BP 166/70 H 06/04/21 07:31 Pulse Ox 95 06/04/21 07:31 BMI result Body Mass Index 25.9 Const: General: cooperative, healthy appearing and no acute distress Orientation/consciousness: oriented to person, oriented to place and oriented to time HENMT: Head: Yes normal to inspection Neck: Carotids: no bruits Chest: Chest palpation & inspection: normal inspection of the chest Resp: Effort & Inspection: normal respiratory effort and able to speak in complete sentences Auscultation: clear to auscultation bilaterally Cardio: Rate: regular rate Heart sounds: S1 normal heart sound present and S2 normal heart sound present GI: Inspection: Yes normal to inspection Skin: Other: left lower extremity open ulcer in the dorsum and lateral aspect of foot foul odor dry necrotic eschar. Associated cellulitis. General skin exam: no rashes or lesions noted Wounds: wounds noted ( Left lower extremity) Neuro: General: oriented to person, oriented to place, oriented to time and CN's II-XI intact bilaterally Extrem: General: Yes normal to inspection, Yes full ROM and Yes no clubbing, cyanosis or edema Psych: Appearance: grossly normal and well kempt Speech and movement: Normal speech and movement present Affect: normal affect Progress Note: A&P Assessment and plan (1) Foot ulcer, left: Status: Acute Assessment and Plan: In short patient has severe necrotic left lower extremity with nonhealing ulcers. This is a nonsalvageable situation. The patient will require left below-knee amputation. Risks benefits complications were discussed in detail with the patient. He demonstrated clear understanding. His white count continues to improve. Will plan for operative intervention on Monday. Fall Risk Details Current Medications: Current Medications Acetaminophen (Acetaminophen 325 Mg Tablet) 650 mg PO Q6H PRN PRN Reason: Pain, Mild (Pain Scale 1-3) Last Admin: 06/04/21 03:49 Dose: 650 mg Documented by: Amlodipine Besylate (Amlodipine Besylate 10 Mg Tablet) 10 mg PO DAILY [facility]; Protocol Last Admin: 06/04/21 08:48 Dose: 10 mg Documented by: Aripiprazole (Aripiprazole 20 Mg Tablet) 20 mg PO DAILY [facility] Last Admin: 06/04/21 08:48 Dose: 20 mg Documented by: Dextrose (Dextrose 50 % 25 Gm/50 Ml Vial) 25 gm IVPUSH Q15M PRN; Protocol PRN Reason: per Hypoglycemia Standing Ord. Docusate Sodium (Docusate Sodium 100 Mg Capsule) 100 mg PO DAILY PRN PRN Reason: Constipation Dorzolamide/Timolol (Dorzolamide/Timolo 2.23%/0.68% 10 Ml Drbtl) 1 drop EYE- BOTH BEDTIME [facility] Last Admin: 06/03/21 20:57 Dose: 1 drop Documented by: Dorzolamide/Timolol (Dorzolamide/Timolo 2.23%/0.68% 10 Ml Drbtl) 2 drop EYE- BOTH DAILY [facility] Last Admin: 06/04/21 08:49 Dose: 2 drop Documented by: Glucose (Glucose Gel 15 Gm Gel..Gram.) 15 gm PO Q15M PRN; Protocol PRN Reason: per Hypoglycemia Standing Ord. Piperacillin Sod/Tazobactam (Sod 3.375 gm/ Sodium Chloride) 50 mls @ 100 mls/hr IV Q6H [facility] Last Infusion: 06/04/21 05:51 Dose: Infused Documented by: Vancomycin HCl 1,000 mg/ (Sodium Chloride) 270 mls @ 270 mls/hr IV Q12H [facility] Last Infusion: 06/04/21 04:59 Dose: Infused Documented by: Insulin Human Lispro (Insulin Lispro 100 Unit/Ml 3 Ml Vial) 0 unit SUBCUT QIDACHS [facility]; Protocol Last Admin: 06/04/21 08:49 Dose: 4 unit Documented by: Lisinopril (Lisinopril 40 Mg Tablet) 40 mg PO DAILY [facility]; Protocol Last Admin: 06/04/21 08:50 Dose: 40 mg Documented by: Ondansetron HCl (Ondansetron Hcl 4 Mg/2 Ml Vial) 4 mg IVPUSH Q8H PRN PRN Reason: Nausea and Vomiting Pharmacy Consult (Consult Rx Vancomycin Dosing) 1 each MISCELLANE DAILY PRN PRN Reason: Consult order Sodium Chloride (0.9 % Sodium Chloride Flush 3 Ml Syringe) 3 ml IVFLUSH QSHIFT [facility] Last Admin: 06/04/21 08:49 Dose: 3 ml Documented by: Time Spent With Patient Time: Total time spent is greater than 50% in coordination of care (as documented) at patient's floor/unit and/or counseling patient: Time with patient: 15 - 24 minutes Procedures Date of Service Date of Service: 06/04/21 Quality Stroke Does the patient have a stroke diagnosis?: No VTE Prior VTE?: No VTE Risk Level:: Medical - moderate - high VTE Device Contraindication: Treatment Not Indicated VTE Drug Contraindication: N/A - Med Ordered
--- NOTE | 2021-06-04 10:46 | P.PNIM_ITS ---
Subjective Subjective Date of Service: 06/04/21 Interval History: the patient was seen and evaluated this morning Laying in bed, leg pain improved after the debridement WBCs trending down Has positive blood cultures No reported other overnight events. Systemic review: No fever, chills or weakness No chest pain, palpitation No shortness of breath or coughing No abdominal pain, nausea or vomiting No urinary symptoms wound in his foot Physical Exam Vital Signs: Vital Signs: Last Vital Signs Temp 97.6 F 06/04/21 07:31 Pulse 64 06/04/21 07:31 Resp 16 06/04/21 07:31 BP 166/70 H 06/04/21 07:31 Pulse Ox 95 06/04/21 07:31 BMI result Body Mass Index 25.9 Const: Other: Constitutional : Alert, oriented, not in distress Neck : Normal inspection, Supple Cardiovascular : RRR, S1 S2, no lower extremity edema Respiratory : Good bilateral air entry, no crackles, wheezes or rhonchi Gastrointestinal: soft, lax, Normal bowel sounds, Non tender Skin : Warm, Dry Musculoskeletal, left lower extremity transmetatarsal amputation with deep ulcers and falls min Ng, drainage. Neurological : Alert & oriented x3, No focal deficit Objective Data Active Medications Acetaminophen (Acetaminophen 325 Mg Tablet) 650 mg PO Q6H PRN PRN Reason: Pain, Mild (Pain Scale 1-3) Last Admin: 06/04/21 03:49 Dose: 650 mg Documented by: MARIAN Amlodipine Besylate (Amlodipine Besylate 10 Mg Tablet) 10 mg PO DAILY [facility]; Protocol Last Admin: 06/04/21 08:48 Dose: 10 mg Documented by: SUKHJINDER Aripiprazole (Aripiprazole 20 Mg Tablet) 20 mg PO DAILY [facility] Last Admin: 06/04/21 08:48 Dose: 20 mg Documented by: SUKHJINDER Dextrose (Dextrose 50 % 25 Gm/50 Ml Vial) 25 gm IVPUSH Q15M PRN; Protocol PRN Reason: per Hypoglycemia Standing Ord. Docusate Sodium (Docusate Sodium 100 Mg Capsule) 100 mg PO DAILY PRN PRN Reason: Constipation Dorzolamide/Timolol (Dorzolamide/Timolo 2.23%/0.68% 10 Ml Drbtl) 1 drop EYE- BOTH BEDTIME [facility] Last Admin: 06/03/21 20:57 Dose: 1 drop Documented by: MARIAN Dorzolamide/Timolol (Dorzolamide/Timolo 2.23%/0.68% 10 Ml Drbtl) 2 drop EYE- BOTH DAILY [facility] Last Admin: 06/04/21 08:49 Dose: 2 drop Documented by: SUKHJINDER Glucose (Glucose Gel 15 Gm Gel..Gram.) 15 gm PO Q15M PRN; Protocol PRN Reason: per Hypoglycemia Standing Ord. Piperacillin Sod/Tazobactam (Sod 3.375 gm/ Sodium Chloride) 50 mls @ 100 mls/hr IV Q6H [facility] Last Infusion: 06/04/21 05:51 Dose: 0 mls/hr Documented by: MARIAN Vancomycin HCl 1,000 mg/ (Sodium Chloride) 270 mls @ 270 mls/hr IV Q12H [facility] Last Infusion: 06/04/21 04:59 Dose: 0 mls/hr Documented by: MARIAN Insulin Human Lispro (Insulin Lispro 100 Unit/Ml 3 Ml Vial) 0 unit SUBCUT QIDACHS [facility]; Protocol Last Admin: 06/04/21 08:49 Dose: 4 unit Documented by: SUKHJINDER Lisinopril (Lisinopril 40 Mg Tablet) 40 mg PO DAILY [facility]; Protocol Last Admin: 06/04/21 08:50 Dose: 40 mg Documented by: SUKHJINDER Ondansetron HCl (Ondansetron Hcl 4 Mg/2 Ml Vial) 4 mg IVPUSH Q8H PRN PRN Reason: Nausea and Vomiting Pharmacy Consult (Consult Rx Vancomycin Dosing) 1 each MISCELLANE DAILY PRN PRN Reason: Consult order Sodium Chloride (0.9 % Sodium Chloride Flush 3 Ml Syringe) 3 ml IVFLUSH QSHIFT [facility] Last Admin: 06/04/21 08:49 Dose: 3 ml Documented by: SUKHJINDER Labs CBC & Chem 7: 06/04/21 06:09 06/04/21 06:09 Labs: Laboratory Results - last 24 hr 06/03/21 06/03/21 06/03/21 11:47 13:36 15:28 MCV MCH MCHC RDW Plt Count MPV Absolute Nucleated RBC Nucleated RBC % (auto) Anion Gap Estim Creat Clear Calc Estimated GFR POC Glucose 188 H 283 H Random Glucose Calcium Albumin Vancomycin Trough 10.6 06/03/21 06/04/2106/04/21 20:48 06:09 06:09 MCV 89.6 MCH 28.2 MCHC 31.4 RDW 14.0 Plt Count 281 MPV 11.9 Absolute Nucleated RBC 0.000 Nucleated RBC % (auto) 0.0 Anion Gap 8 L Estim Creat Clear Calc 78.9 Estimated GFR > 60 POC Glucose 382 H* Random Glucose 231 H D Calcium 7.2 L D Albumin 2.1 L D Vancomycin Trough 06/04/21 07:28 MCV MCH MCHC RDW Plt Count MPV Absolute Nucleated RBC Nucleated RBC % (auto) Anion Gap Estim Creat Clear Calc Estimated GFR POC Glucose 220 H Random Glucose Calcium Albumin Vancomycin Trough Microbiology Microbiology Results: Microbiology 06/03/21 13:36 Blood Culture - Preliminary Blood - Venous Prelim: GPC Gram Stain only 06/03/21 13:36 Blood Culture - Preliminary Blood - Venous Prelim: GPC Gram Stain only 06/02/21 15:56 Blood Culture - Preliminary Blood - Venous Staphylococcus aureus 06/02/21 15:19 Blood Culture - Preliminary Blood - Venous Staphylococcus aureus 06/02/21 Unknown Urine Culture - Preliminary Urine clean catch - Urine isaac top Culture in progress. Assessment and Plan (1) Osteomyelitis: Status: Acute (2) Bacteremia due to Gram-positive bacteria: Status: Acute (3) Acute UTI: Status: Acute Assessment and Plan: this is a 60-year-old male with past medical history of diabetes as well as PVD status post left foot metatarsal amputation presents to the hospital with nonhealing # Gram-positive bacteremia 2/2 left foot osteomyelitis nonhealing wound CT angiogram of the left extremities showed anterior tibial abnormality continue broad-spectrum antibiotics cultures growing GPC, to repeat vascular surgery to do amputation on Monday ID evaluation # UTI Urinalysis showing infection pending urine culture will be on IV antibiotics as above # hyperglycemia 2/2 DM treated improved LDSSI, diabetic diet # HTN stable continue home medications DVT ppx: scds in anticipation of surgical intervention Quality Stroke Does the patient have a stroke diagnosis?: No VTE Prior VTE?: No VTE Risk Level:: Medical - moderate - high VTE Device Contraindication: Treatment Not Indicated VTE Drug Contraindication: N/A - Med Ordered
[2021-06-04 11:45] LABS: Glucose, Whole Blood 284 mg/dL (60-115)
[2021-06-04 14:45] LABS: Vancomycin Trough 12.5 mcg/mL (10.0-20.0)
[2021-06-04 16:51] LABS: Glucose, Whole Blood 326 mg/dL (60-115)
[2021-06-04 20:41] LABS: Glucose, Whole Blood 341 mg/dL (60-115)
[2021-06-04] MEDS: Dorzolamide/Timolo 2.23%/0.68% 10 ML DRBTL 1 DROP EYE-BOTH (20:42)
[2021-06-05 03:49] VITALS: BP 152/67; PULSE 80; RESP 18; TEMP 37.7; O2SAT 97
[2021-06-05] MEDS: vancomycin HCL 1,000 MG in 0.9 % Sodium Chloride 250 ML 270 MG IV ×2 (03:59→16:46)
[2021-06-05] MEDS: Acetaminophen 325 MG TABLET 650 MG PO ×3 (04:05→17:55)
[2021-06-05] MEDS: Piperacillin Sodium/Tazobactam 3.375 GM in 0.9 % Sodium Chloride 50 ML IV ×3 (05:27→17:56)
[2021-06-05 07:50] VITALS: BP 155/73; PULSE 75; RESP 18; TEMP 36.4; O2SAT 97
[2021-06-05 07:54] LABS: Glucose, Whole Blood 209 mg/dL (60-115)
[2021-06-05] MEDS: Insulin Glargine,Hum.rec.anlog 100 UNIT/ML 10 ML VIAL 10 UNIT SUBCUT (08:20)
[2021-06-05] MEDS: amLODIPine Besylate 10 MG TABLET PO (08:21)
[2021-06-05] MEDS: Insulin Lispro 100 UNIT/ML 3 ML VIAL SUBCUT ×4 (08:22→21:25)
[2021-06-05] MEDS: 0.9 % Sodium Chloride Flush 3 ML SYRINGE IVFLUSH ×3 (08:22→21:25)
[2021-06-05] MEDS: ARIPiprazole 20 MG TABLET PO (08:22)
[2021-06-05] MEDS: lisinopriL 40 MG TABLET PO (08:22)
[2021-06-05] MEDS: Dorzolamide/Timolo 2.23%/0.68% 10 ML DRBTL 2 DROP EYE-BOTH (09:25)
[2021-06-05 09:35] LABS: Creatinine Clr Calc Pharmacy 90.1; Estimated Glomerular Filt Rate > 60
--- NOTE | 2021-06-05 10:51 | P.PNIM_ITS ---
Subjective Subjective Date of Service: 06/05/21 Interval History: the patient was seen and evaluated this morning Laying in bed, leg pain improved Has positive blood cultures, repeated negative up to this point No reported other overnight events. Systemic review: No fever, chills or weakness No chest pain, palpitation No shortness of breath or coughing No abdominal pain, nausea or vomiting No urinary symptoms wound in his foot Physical Exam Vital Signs: Vital Signs: Last Vital Signs Temp 97.6 F 06/05/21 07:50 Pulse 75 06/05/21 07:50 Resp 18 06/05/21 07:50 BP 155/73 H 06/05/21 07:50 Pulse Ox 97 06/05/21 07:50 BMI result Body Mass Index 25.9 Const: Other: Constitutional : Alert, oriented, not in distress Neck : Normal inspection, Supple Cardiovascular : RRR, S1 S2, no lower extremity edema Respiratory : Good bilateral air entry, no crackles, wheezes or rhonchi Gastrointestinal: soft, lax, Normal bowel sounds, Non tender Skin : Warm, Dry Musculoskeletal, left lower extremity transmetatarsal amputation with deep ulcers and falls min Ng, drainage. Neurological : Alert & oriented x3, No focal deficit Objective Data Active Medications Acetaminophen (Acetaminophen 325 Mg Tablet) 650 mg PO Q6H PRN PRN Reason: Pain, Mild (Pain Scale 1-3) Last Admin: 06/05/21 04:05 Dose: 650 mg Documented by: MARIAN Amlodipine Besylate (Amlodipine Besylate 10 Mg Tablet) 10 mg PO DAILY [facility]; Protocol Last Admin: 06/05/21 08:21 Dose: 10 mg Documented by: AURELIO Aripiprazole (Aripiprazole 20 Mg Tablet) 20 mg PO DAILY [facility] Last Admin: 06/05/21 08:22 Dose: 20 mg Documented by: AURELIO Dextrose (Dextrose 50 % 25 Gm/50 Ml Vial) 25 gm IVPUSH Q15M PRN; Protocol PRN Reason: per Hypoglycemia Standing Ord. Docusate Sodium (Docusate Sodium 100 Mg Capsule) 100 mg PO DAILY PRN PRN Reason: Constipation Dorzolamide/Timolol (Dorzolamide/Timolo 2.23%/0.68% 10 Ml Drbtl) 1 drop EYE- BOTH BEDTIME [facility] Last Admin: 06/04/21 20:42 Dose: 1 drop Documented by: MARIAN Dorzolamide/Timolol (Dorzolamide/Timolo 2.23%/0.68% 10 Ml Drbtl) 2 drop EYE- BOTH DAILY [facility] Last Admin: 06/05/21 09:25 Dose: 2 drop Documented by: AURELIO Glucose (Glucose Gel 15 Gm Gel..Gram.) 15 gm PO Q15M PRN; Protocol PRN Reason: per Hypoglycemia Standing Ord. Piperacillin Sod/Tazobactam (Sod 3.375 gm/ Sodium Chloride) 50 mls @ 100 mls/hr IV Q6H [facility] Last Infusion: 06/05/21 06:06 Dose: 0 mls/hr Documented by: MARAIN Vancomycin HCl 1,000 mg/ (Sodium Chloride) 270 mls @ 270 mls/hr IV Q12H [facility] Last Infusion: 06/05/21 05:06 Dose: 0 mls/hr Documented by: MARIAN Insulin Human Lispro (Insulin Lispro 100 Unit/Ml 3 Ml Vial) 0 unit SUBCUT QIDACHS [facility]; Protocol Last Admin: 06/05/21 08:22 Dose: 4 unit Documented by: AURELIO Lisinopril (Lisinopril 40 Mg Tablet) 40 mg PO DAILY [facility]; Protocol Last Admin: 06/05/21 08:22 Dose: 40 mg Documented by: AURELIO Ondansetron HCl (Ondansetron Hcl 4 Mg/2 Ml Vial) 4 mg IVPUSH Q8H PRN PRN Reason: Nausea and Vomiting Pharmacy Consult (Consult Rx Vancomycin Dosing) 1 each MISCELLANE DAILY PRN PRN Reason: Consult order Sodium Chloride (0.9 % Sodium Chloride Flush 3 Ml Syringe) 3 ml IVFLUSH QSHIFT [facility] Last Admin: 06/05/21 08:22 Dose: 3 ml Documented by: AURELIO Labs CBC & Chem 7: 06/04/21 06:09 06/05/21 08:40 Labs: Laboratory Results - last 24 hr 06/04/21 06/04/21 06/04/21 11:41 14:14 16:20 Estim Creat Clear Calc Estimated GFR POC Glucose 284 H 326 H Vancomycin Trough 12.5 06/04/21 06/05/21 06/05/21 20:36 07:48 08:40 Estim Creat Clear Calc 90.1 Estimated GFR > 60 POC Glucose 341 H 209 H Vancomycin Trough Microbiology Microbiology Results: Microbiology 06/03/21 13:36 Blood Culture - Final Blood - Venous Staphylococcus aureus 06/03/21 13:36 Blood Culture - Final Blood - Venous Staphylococcus aureus 06/02/21 15:19 Blood Culture - Final Blood - Venous Staphylococcus aureus 06/02/21 15:56 Blood Culture - Final Blood - Venous Staphylococcus aureus 06/02/21 Unknown Urine Culture - Final Urine clean catch - Urine isaac top Assessment and Plan (1) Bacteremia due to Gram-positive bacteria: Status: Acute (2) Osteomyelitis: Status: Acute Assessment and Plan: this is a 60-year-old male with past medical history of diabetes as well as PVD status post left foot metatarsal amputation presents to the hospital with nonhealing # Gram-positive bacteremia 2/2 left foot osteomyelitis nonhealing wound CT angiogram of the left extremities showed anterior tibial abnormality continue broad-spectrum antibiotics cultures growing Staph aureus, repeated blood culture pending vascular surgery to do amputation on Monday pending ID evaluation # UTI Urinalysis showing infection negative urine culture on IV antibiotics as above # hyperglycemia 2/2 DM treated improved LDSSI, diabetic diet # HTN stable continue home medications DVT ppx: scds in anticipation of surgical intervention Quality Stroke Does the patient have a stroke diagnosis?: No VTE Prior VTE?: No VTE Risk Level:: Medical - moderate - high VTE Device Contraindication: Treatment Not Indicated VTE Drug Contraindication: N/A - Med Ordered
[2021-06-05 11:57] VITALS: BP 158/68; PULSE 73; RESP 18; TEMP 37.1; O2SAT 98
[2021-06-05 12:02] LABS: Glucose, Whole Blood 247 mg/dL (60-115)
[2021-06-05 15:46] VITALS: BP 145/69; PULSE 67; RESP 16; TEMP 36.6; O2SAT 98
[2021-06-05 16:39] LABS: Glucose, Whole Blood 347 mg/dL (60-115)
[2021-06-05 19:49] VITALS: BP 157/64; PULSE 76; RESP 16; TEMP 37.3; O2SAT 99
--- NOTE | 2021-06-05 20:00 | W.PM.IDCN ---
History of Present Illness Data of Consult Service Date: 06/04/21 Requesting physician: Marv Jaramillo Primary Care Provider: James Wolfe MD HPI Reason for consult: sepsis He presents to hospital with left foot erythema and swelling and [facility]. He has had right TMA. He has WBC of 24,000 and has malodor area,now wrapped He has MSSA bacteremia. He has had Vascular consult and has seen Dr Lopez and needs BKA apparently He has osteomyelitis He was sent over from [facility] Review of Systems Review of Systems: Yes all other systems are reviewed and are negative [facility] Past Medical History Medical History Benign essential hypertension BMI 31.0-31.9,adult Depression Diabetes mellitus with hyperglycemia Essential hypertension Foot ulcer, left Hearing loss Neuropathy Obesity (BMI 30-39.9) Obesity due to excess calories Peripheral artery disease Proteinuria Smoker Type 2 diabetes mellitus with diabetic peripheral angiopathy with gangrene Type 2 diabetes mellitus with hyperglycemia, without long-term current use of insulin Type 2 diabetes mellitus with other diabetic kidney complication Vision impairment Family History Family History Father No problems noted. Mother Cancer Maternal Grandfather CVD (cardiovascular disease) Diabetes Maternal Grandmother CVD (cardiovascular disease) Family history: reviewed and not pertinent Surgical History Surgical History History of amputation of left great toe History of throat surgery History of transmetatarsal amputation of left foot Hx of colonoscopy Hx of eye surgery Social History Social History Household Members: None Housing: Apartment Do you presently have visiting nurse or other home services: No Alcohol intake: never Patient Tobacco Use Status: Current everyday Tobacco user Tobacco use type: Cigarette Cigarette Packs Per Day: 0.5 Cigarettes Per Day: 10.0 Smoked in Last 30 Days: Yes e-Cigarette/Vaping Use: Never Used Patient Interested in Nicotine Replacement: No Second Hand Smoke Exposure: Yes Use of substances other than those prescribed or required for medical reasons: Yes Substance Use Type: Marijuana Substance Use Frequency: Occasionally Last Used Substance: Unknown Currently Displaying Signs/Symptoms of Drug Intoxication Withdrawal: No Any prior treatment program specific to substance use: No Have you been hit, kicked, punched, or otherwise hurt by someone within the past year? If so, by whom?: No Do you feel safe in your current relationship?: No Current Relationship Is there a partner from a previous relationship who is making you feel unsafe now?: No Are you made to feel afraid or neglected: No Advance Directives: No Advance Directives Information Provided: No Advance Directives on File: No Do you have thoughts of harming others: None Do you have a plan to hurt others: No Plan Recently lost weight without trying: No Eating poorly because of decreased appetite: No Nutrition Risks: No Nutritional Risk Poor oral hygiene: No service: No Current occupational status: [employer] Allergies Allergy/AdvReac Type Severity Reaction Status Date / Time No Known Allergies Allergy Verified 02/24/21 15:40 [No Known Allergies*] Active Medications: Current Medications Acetaminophen (Acetaminophen 325 Mg Tablet) 650 mg PO Q6H PRN PRN Reason: Pain, Mild (Pain Scale 1-3) Last Admin: 06/05/21 17:55 Dose: 650 mg Documented by: Amlodipine Besylate (Amlodipine Besylate 10 Mg Tablet) 10 mg PO DAILY [facility]; Protocol Last Admin: 06/05/21 08:21 Dose: 10 mg Documented by: Aripiprazole (Aripiprazole 20 Mg Tablet) 20 mg PO DAILY [facility] Last Admin: 06/05/21 08:22 Dose: 20 mg Documented by: Dextrose (Dextrose 50 % 25 Gm/50 Ml Vial) 25 gm IVPUSH Q15M PRN; Protocol PRN Reason: per Hypoglycemia Standing Ord. Docusate Sodium (Docusate Sodium 100 Mg Capsule) 100 mg PO DAILY PRN PRN Reason: Constipation Dorzolamide/Timolol (Dorzolamide/Timolo 2.23%/0.68% 10 Ml Drbtl) 1 drop EYE-BOTH BEDTIME [facility] Last Admin: 06/04/21 20:42 Dose: 1 drop Documented by: Dorzolamide/Timolol (Dorzolamide/Timolo 2.23%/0.68% 10 Ml Drbtl) 2 drop EYE-BOTH DAILY [facility] Last Admin: 06/05/21 09:25 Dose: 2 drop Documented by: Glucose (Glucose Gel 15 Gm Gel..Gram.) 15 gm PO Q15M PRN; Protocol PRN Reason: per Hypoglycemia Standing Ord. Cefazolin Sodium 2 gm/ Sodium (Chloride) 50 mls @ 100 mls/hr IV Q8H [facility] Insulin Human Lispro (Insulin Lispro 100 Unit/Ml 3 Ml Vial) 0 unit SUBCUT QIDACHS [facility]; Protocol Last Admin: 06/05/21 16:46 Dose: 8 unit Documented by: Lisinopril (Lisinopril 40 Mg Tablet) 40 mg PO DAILY [facility]; Protocol Last Admin: 06/05/21 08:22 Dose: 40 mg Documented by: Morphine Sulfate (Morphine Sulfate 2 Mg/Ml Cartridge) 2 mg IVPUSH Q2H PRN; Protocol PRN Reason: severe pain Ondansetron HCl (Ondansetron Hcl 4 Mg/2 Ml Vial) 4 mg IVPUSH Q8H PRN PRN Reason: Nausea and Vomiting Oxycodone HCl (Oxycodone Hcl Immed Release 5 Mg Tablet) 5 mg PO Q4H PRN PRN Reason: moderate pain Pharmacy Consult (Consult Rx Vancomycin Dosing) 1 each MISCELLANE DAILY PRN PRN Reason: Consult order Sodium Chloride (0.9 % Sodium Chloride Flush 3 Ml Syringe) 3 ml IVFLUSH QSHIFT [facility] Last Admin: 06/05/21 16:50 Dose: 3 ml Documented by: Home Medications Medication Instructions Recorded Confirmed Last Taken Type aripiprazole 20 mg tablet 20 mg PO DAILY tab 07/28/20 06/02/21 06/01/21 History dorzolamide 22.3 mg-timolol 6.8 1 drp OPHTHALMIC (EYE) BEDTIME 06/02/21 06/02/21 06/01/21 History mg/mL eye drops dorzolamide 22.3 mg-timolol 6.8 2 drp OPHTHALMIC (EYE) DAILY 06/02/21 06/02/21 06/01/21 History mg/mL eye drops empagliflozin 25 mg tablet 1 tab PO DAILY 06/02/21 06/02/21 06/01/21 History (Jardiance) netarsudil 0.02 %-latanoprost 1 drp OPHTHALMIC (EYE) DAILY 06/02/21 06/02/21 06/01/21 History 0.005 % eye drops (lamalaika) Physical Exam Vital Signs: Vital Signs: Last Vital Signs Temp 99.1 F 06/05/21 19:49 Pulse 76 06/05/21 19:49 Resp 16 06/05/21 19:49 BP 157/64 H 06/05/21 19:49 Pulse Ox 99 06/05/21 19:49 BMI result Body Mass Index 25.9 Const: General: cooperative HENMT: Head: Yes normal to inspection Mouth: Normal oral and palatal mucosa present Eyes: General: appearance normal, both eyes and all related structures Pupils: Equal, round and reactive pupils present Resp: Effort & Inspection: normal respiratory effort Cardio: Rate: regular rate Rhythm: regular rhythm GI: Palpation (GI): Soft to palpation and nontender Skin: General skin exam: no rashes or lesions noted Neuro: Cranial nerves: Yes Equal, round and reactive pupils present Extrem: Other: left foot wrapped,pressure wrapping Results Labs CBC & Chem 7: 06/04/21 06:09 06/05/21 08:40 Labs: BMP 06/05/21 08:40 Creatinine 0.85 Microbiology Microbiology Results: Microbiology 06/04/21 13:55 Blood - Venous Blood Culture - Preliminary No growth after 24 hours. 06/04/21 13:55 Blood - Venous Blood Culture - Preliminary No growth after 24 hours. 06/03/21 13:36 Blood - Venous Blood Culture - Final Staphylococcus aureus 06/03/21 13:36 Blood - Venous Blood Culture - Final Staphylococcus aureus 06/02/21 15:19 Blood - Venous Blood Culture - Final Staphylococcus aureus 06/02/21 15:56 Blood - Venous Blood Culture - Final Staphylococcus aureus 06/02/21 Unknown Urine clean catch - Urine isaac top Urine Culture - Final Assessment and Plan (1) Bacteremia due to Gram-positive bacteria: Status: Acute MSSA bacteremia He has source likely foot He has necrotic foot area He apparently is getting Vascular intervention,BKA (2) Osteomyelitis: Qualifiers: Laterality: left Osteomyelitis location: foot Osteomyelitis type: other chronic Qualified Code(s): M86.672 - Other chronic osteomyelitis, left ankle and foot Status: Acute Would continue antibiotics Would switch to IV Kefzol as MSSA for four weeks cover bacteremia Would check echo evaluate endocarditis. Would continue Surgery workup
[2021-06-05 20:10] LABS: Glucose, Whole Blood 272 mg/dL (60-115)
[2021-06-05] MEDS: ceFAZolin Sodium/Dextrose,Iso 2 GM/50 ML PIGGYBACK IV (21:25)
[2021-06-05] MEDS: Dorzolamide/Timolo 2.23%/0.68% 10 ML DRBTL 1 DROP EYE-BOTH (22:06)
[2021-06-06] VITALS (7 sets, daily range): BP systolic 136–173; BP diastolic 66–81; PULSE 71–78; RESP 16–18; TEMP 36.6–37.8; O2SAT 95–99
[2021-06-06] MEDS: oxyCODONE HCl Immed Release 5 MG TABLET PO ×3 (00:28→21:36)
[2021-06-06 03:38] LABS: Vancomycin Trough 14.3 mcg/mL (10.0-20.0)
[2021-06-06] MEDS: ceFAZolin Sodium/Dextrose,Iso 2 GM/50 ML PIGGYBACK IV ×3 (04:59→20:42)
[2021-06-06 07:56] LABS: Glucose, Whole Blood 169 mg/dL (60-115)
[2021-06-06] MEDS: lisinopriL 40 MG TABLET PO (08:09)
[2021-06-06] MEDS: ARIPiprazole 20 MG TABLET PO (08:09)
[2021-06-06] MEDS: amLODIPine Besylate 10 MG TABLET PO (08:09)
[2021-06-06] MEDS: Insulin Lispro 100 UNIT/ML 3 ML VIAL SUBCUT ×4 (08:10→20:42)
[2021-06-06] MEDS: Insulin Glargine,Hum.rec.anlog 100 UNIT/ML 10 ML VIAL 15 UNIT SUBCUT (08:10)
[2021-06-06] MEDS: 0.9 % Sodium Chloride Flush 3 ML SYRINGE IVFLUSH ×3 (08:11→20:42)
[2021-06-06] MEDS: Dorzolamide/Timolo 2.23%/0.68% 10 ML DRBTL 2 DROP EYE-BOTH (08:14)
[2021-06-06 12:13] LABS: Glucose, Whole Blood 228 mg/dL (60-115)
--- NOTE | 2021-06-06 12:38 | HO.PM.IMPN ---
Subjective Subjective Date of Service: 06/06/21 Interval History: the patient was seen and evaluated this morning Laying in bed, leg pain improved Has positive blood cultures, repeated negative up to this point No reported other overnight events. Systemic review: No fever, chills or weakness No chest pain, palpitation No shortness of breath or coughing No abdominal pain, nausea or vomiting No urinary symptoms wound in his foot Physical Exam Vital Signs: Vital Signs: Last Vital Signs Temp 98.4 F 06/06/21 12:00 Pulse 74 06/06/21 12:00 Resp 18 06/06/21 12:00 BP 138/74 06/06/21 12:00 Pulse Ox 95 06/06/21 12:00 BMI result Body Mass Index 25.9 Const: Other: Constitutional : Alert, oriented, not in distress Neck : Normal inspection, Supple Cardiovascular : RRR, S1 S2, no lower extremity edema Respiratory : Good bilateral air entry, no crackles, wheezes or rhonchi Gastrointestinal: soft, lax, Normal bowel sounds, Non tender Skin : Warm, Dry Musculoskeletal, left lower extremity transmetatarsal amputation with deep ulcers and falls min Ng, drainage. Neurological : Alert & oriented x3, No focal deficit Objective Data Active Medications Acetaminophen (Acetaminophen 325 Mg Tablet) 650 mg PO Q6H PRN PRN Reason: Pain, Mild (Pain Scale 1-3) Last Admin: 06/05/21 17:55 Dose: 650 mg Documented by: TESS Amlodipine Besylate (Amlodipine Besylate 10 Mg Tablet) 10 mg PO DAILY [facility]; Protocol Last Admin: 06/06/21 08:09 Dose: 10 mg Documented by: ELMA Aripiprazole (Aripiprazole 20 Mg Tablet) 20 mg PO DAILY [facility] Last Admin: 06/06/21 08:09 Dose: 20 mg Documented by: ELMA Dextrose (Dextrose 50 % 25 Gm/50 Ml Vial) 25 gm IVPUSH Q15M PRN; Protocol PRN Reason: per Hypoglycemia Standing Ord. Docusate Sodium (Docusate Sodium 100 Mg Capsule) 100 mg PO DAILY PRN PRN Reason: Constipation Dorzolamide/Timolol (Dorzolamide/Timolo 2.23%/0.68% 10 Ml Drbtl) 1 drop EYE-BOTH BEDTIME [facility] Last Admin: 06/05/21 22:06 Dose: 1 drop Documented by: RAMBO Dorzolamide/Timolol (Dorzolamide/Timolo 2.23%/0.68% 10 Ml Drbtl) 2 drop EYE-BOTH DAILY [facility] Last Admin: 06/06/21 08:14 Dose: 2 drop Documented by: ELMA Glucose (Glucose Gel 15 Gm Gel..Gram.) 15 gm PO Q15M PRN; Protocol PRN Reason: per Hypoglycemia Standing Ord. Cefazolin Sodium/Dextrose (Ancef) 2 gm in 50 mls @ 100 mls/hr IV Q8H [facility] Last Infusion: 06/06/21 05:50 Dose: 0 mls/hr Documented by: RAMBO Insulin Glargine (Insulin Glargine,Hum.Rec.Anlog 100 Unit/Ml 10 Ml Vial) 15 unit SUBCUT DAILY [facility] Last Admin: 06/06/21 08:10 Dose: 15 unit Documented by: ELMA Insulin Human Lispro (Insulin Lispro 100 Unit/Ml 3 Ml Vial) 0 unit SUBCUT QIDACHS [facility]; Protocol Last Admin: 06/06/21 08:10 Dose: 2 unit Documented by: ELMA Lisinopril (Lisinopril 40 Mg Tablet) 40 mg PO DAILY [facility]; Protocol Last Admin: 06/06/21 08:09 Dose: 40 mg Documented by: ELMA Morphine Sulfate (Morphine Sulfate 2 Mg/Ml Cartridge) 2 mg IVPUSH Q2H PRN; Protocol PRN Reason: severe pain Ondansetron HCl (Ondansetron Hcl 4 Mg/2 Ml Vial) 4 mg IVPUSH Q8H PRN PRN Reason: Nausea and Vomiting Oxycodone HCl (Oxycodone Hcl Immed Release 5 Mg Tablet) 5 mg PO Q4H PRN PRN Reason: moderate pain Last Admin: 06/06/21 00:28 Dose: 5 mg Documented by: RAMBO Pharmacy Consult (Consult Rx Vancomycin Dosing) 1 each MISCELLANE DAILY PRN PRN Reason: Consult order Sodium Chloride (0.9 % Sodium Chloride Flush 3 Ml Syringe) [facility] Last Admin: 06/06/21 08:11 Dose: 3 ml Documented by: ELMA Labs CBC & Chem 7: 06/04/21 06:09 06/05/21 08:40 Labs: Laboratory Results - last 24 hr 06/05/21 06/05/21 06/06/21 16:33 20:06 02:15 POC Glucose 347 H 272 H Vancomycin Trough 14.3 06/06/21 06/06/21 07:13 12:05 POC Glucose 169 H 228 H Vancomycin Trough Microbiology Microbiology Results: Microbiology 06/04/21 13:55 Blood Culture - Preliminary Blood - Venous No growth after 24 hours. 06/04/21 13:55 Blood Culture - Preliminary Blood - Venous No growth after 24 hours. 06/03/21 13:36 Blood Culture - Final Blood - Venous Staphylococcus aureus 06/03/21 13:36 Blood Culture - Final Blood - Venous Staphylococcus aureus 06/02/21 15:19 Blood Culture - Final Blood - Venous Staphylococcus aureus 06/02/21 15:56 Blood Culture - Final Blood - Venous Staphylococcus aureus Assessment and Plan (1) Bacteremia due to Gram-positive bacteria: Status: Acute (2) Osteomyelitis: Status: Acute (3) Acute UTI: Status: Acute Assessment and Plan: this is a 60-year-old male with past medical history of diabetes as well as PVD status post left foot metatarsal amputation presents to the hospital with nonhealing # Gram-positive bacteremia 2/2 left foot osteomyelitis nonhealing wound CT angiogram of the left extremities showed anterior tibial abnormality continue broad-spectrum antibiotics cultures growing MSSA, repeated blood culture negative up to this point vascular surgery to do amputation on Monday id input appreciated, changed to cefazolin for total of [address] PICC line tomorrow # UTI Urinalysis showing infection negative urine culture on IV antibiotics as above # hyperglycemia 2/2 DM treated improved LDSSI, diabetic diet # HTN stable continue home medications DVT ppx: scds in anticipation of surgical intervention Quality Stroke Does the patient have a stroke diagnosis?: No VTE Prior VTE?: No VTE Risk Level:: Medical - moderate - high VTE Device Contraindication: Treatment Not Indicated VTE Drug Contraindication: N/A - Med Ordered
[2021-06-06 16:07] LABS: Glucose, Whole Blood 300 mg/dL (60-115)
[2021-06-06] MEDS: Acetaminophen 325 MG TABLET 650 MG PO (16:21)
[2021-06-06 19:56] LABS: Glucose, Whole Blood 278 mg/dL (60-115)
[2021-06-06] MEDS: Dorzolamide/Timolo 2.23%/0.68% 10 ML DRBTL 1 DROP EYE-BOTH (20:43)
[2021-06-07] VITALS (17 sets, daily range): BP systolic 113–184; BP diastolic 56–82; PULSE 57–86; RESP 16–20; TEMP 36.1–37.6; O2SAT 94–100
[2021-06-07] MEDS: ceFAZolin Sodium/Dextrose,Iso 2 GM/50 ML PIGGYBACK IV ×3 (04:41→20:01)
[2021-06-07 06:48] LABS: INTERNATIONAL NORM RATIO 1.3 (0.9-1.1); Prothrombin Time 14.4 SEC (9.9-13.0)
[2021-06-07 06:49] LABS: Hematocrit 28.4 % (42.0-52.0); Hemoglobin 8.8 g/dl (14.0-18.0); Mean Corpuscular Hemoglobin 28.4 pg (27.0-33.0); Mean Corpuscular Volume 91.6 fL (80.0-98.0); Mean Platelet Volume 11.2 fL (9.4-12.4); Platelet Count 334 X10*3/uL (160-400); Red Cell Distribution Width 14.5 % (11.0-16.0); White Blood Count 11.8 X10*3/uL (4.8-10.8)
[2021-06-07] MEDS: oxyCODONE HCl Immed Release 5 MG TABLET PO ×2 (06:58→13:42)
[2021-06-07 07:11] LABS: Anion Gap 12 (12-20); Blood Urea Nitrogen 14 mg/dL (9-16); Carbon Dioxide 27 mmol/L (22-29); Chloride 102 mmol/L (96-108); Creatinine Clr Calc Pharmacy 78.9; Estimated Glomerular Filt Rate > 60; Glucose Random 252 mg/dL (60-115); Potassium 4.6 mmol/L (3.3-5.1); Sodium 136 mmol/L (135-145)
[2021-06-07 07:49] LABS: Glucose, Whole Blood 245 mg/dL (60-115)
--- NOTE | 2021-06-07 07:54 | HO.ANESPROP2 ---
[facility] Active Problems Active Problems: All Active Problems (Updated 06/04/21 @ 10:53 by Marv Jaramillo MD) Bacteremia due to Gram-positive bacteria (Acute) Osteomyelitis (Acute) Acute UTI (Acute) Depression (Acute) Neuropathy (Acute) Peripheral artery disease (Acute) Obesity (BMI 30-39.9) (Acute) Smoker (Acute) Foot ulcer, left (Acute) Benign essential hypertension (Acute) Type 2 diabetes mellitus with diabetic peripheral angiopathy with gangrene (Acute) Diabetes mellitus with hyperglycemia (Acute) Type 2 diabetes mellitus with other diabetic kidney complication (Acute) Proteinuria (Acute) Type 2 diabetes mellitus with hyperglycemia, without long-term current use of insulin (Acute) Essential hypertension (Acute) Obesity due to excess calories (Acute) BMI 31.0-31.9,adult (Acute) Past Medical History Medical History Benign essential hypertension BMI 31.0-31.9,adult Depression Diabetes mellitus with hyperglycemia Essential hypertension Foot ulcer, left Hearing loss Neuropathy Obesity (BMI 30-39.9) Obesity due to excess calories Peripheral artery disease Proteinuria Smoker Type 2 diabetes mellitus with diabetic peripheral angiopathy with gangrene Type 2 diabetes mellitus with hyperglycemia, without long-term current use of insulin Type 2 diabetes mellitus with other diabetic kidney complication Vision impairment Family History Family History Father No problems noted. Mother Cancer Maternal Grandfather CVD (cardiovascular disease) Diabetes Maternal Grandmother CVD (cardiovascular disease) Surgical History Surgical History History of amputation of left great toe History of throat surgery History of transmetatarsal amputation of left foot Hx of colonoscopy Hx of eye surgery History of Problems with Anesthesia: No Social History Social History Household Members: None Housing: Apartment Do you presently have visiting nurse or other home services: No Alcohol intake: never Patient Tobacco Use Status: Current everyday Tobacco user Tobacco use type: Cigarette Cigarette Packs Per Day: 0.5 Cigarettes Per Day: 10.0 Smoked in Last 30 Days: Yes e-Cigarette/Vaping Use: Never Used Patient Interested in Nicotine Replacement: No Second Hand Smoke Exposure: Yes Use of substances other than those prescribed or required for medical reasons: Yes Substance Use Type: Marijuana Substance Use Frequency: Occasionally Last Used Substance: Unknown Currently Displaying Signs/Symptoms of Drug Intoxication Withdrawal: No Any prior treatment program specific to substance use: No Have you been hit, kicked, punched, or otherwise hurt by someone within the past year? If so, by whom?: No Do you feel safe in your current relationship?: No Current Relationship Is there a partner from a previous relationship who is making you feel unsafe now?: No Are you made to feel afraid or neglected: No Are you DNR?: No Advance Directives: No Advance Directives Information Provided: No Advance Directives on File: No Do you have thoughts of harming others: None Do you have a plan to hurt others: No Plan Recently lost weight without trying: No Eating poorly because of decreased appetite: No Nutrition Risks: No Nutritional Risk Poor oral hygiene: No service: No Current occupational status: disabled [employer] Allergies Allergy/AdvReac Type Severity Reaction Status Date / Time No Known Allergies Allergy Verified 02/24/21 15:40 [No Known Allergies*] Active Medications: Current Medications Acetaminophen (Acetaminophen 325 Mg Tablet) 650 mg PO Q6H PRN PRN Reason: Pain, Mild (Pain Scale 1-3) Last Admin: 06/06/21 16:21 Dose: 650 mg Documented by: Amlodipine Besylate (Amlodipine Besylate 10 Mg Tablet) 10 mg PO DAILY [facility]; Protocol Last Admin: 06/06/21 08:09 Dose: 10 mg Documented by: Aripiprazole (Aripiprazole 20 Mg Tablet) 20 mg PO DAILY [facility] Last Admin: 06/06/21 08:09 Dose: 20 mg Documented by: Dextrose (Dextrose 50 % 25 Gm/50 Ml Vial) 25 gm IVPUSH Q15M PRN; Protocol PRN Reason: per Hypoglycemia Standing Ord. Docusate Sodium (Docusate Sodium 100 Mg Capsule) 100 mg PO DAILY PRN PRN Reason: Constipation Dorzolamide/Timolol (Dorzolamide/Timolo 2.23%/0.68% 10 Ml Drbtl) 1 drop EYE-BOTH BEDTIME [facility] Last Admin: 06/06/21 20:43 Dose: 1 drop Documented by: Dorzolamide/Timolol (Dorzolamide/Timolo 2.23%/0.68% 10 Ml Drbtl) 2 drop EYE-BOTH DAILY [facility] Last Admin: 06/06/21 08:14 Dose: 2 drop Documented by: Glucose (Glucose Gel 15 Gm Gel..Gram.) 15 gm PO Q15M PRN; Protocol PRN Reason: per Hypoglycemia Standing Ord. Cefazolin Sodium/Dextrose (Ancef) 2 gm in 50 mls @ 100 mls/hr IV Q8H [facility] Last Infusion: 06/07/21 05:19 Dose: Infused Documented by: Insulin Glargine (Insulin Glargine,Hum.Rec.Anlog 100 Unit/Ml 10 Ml Vial) 15 unit SUBCUT DAILY [facility] Last Admin: 06/06/21 08:10 Dose: 15 unit Documented by: Insulin Human Lispro (Insulin Lispro 100 Unit/Ml 3 Ml Vial) 0 unit SUBCUT QIDACHS [facility]; Protocol Last Admin: 06/06/21 20:42 Dose: 6 unit Documented by: Lisinopril (Lisinopril 40 Mg Tablet) 40 mg PO DAILY [facility]; Protocol Last Admin: 06/06/21 08:09 Dose: 40 mg Documented by: Morphine Sulfate (Morphine Sulfate 2 Mg/Ml Cartridge) 2 mg IVPUSH Q2H PRN; Protocol PRN Reason: severe pain Ondansetron HCl (Ondansetron Hcl 4 Mg/2 Ml Vial) 4 mg IVPUSH Q8H PRN PRN Reason: Nausea and Vomiting Oxycodone HCl (Oxycodone Hcl Immed Release 5 Mg Tablet) 5 mg PO Q4H PRN PRN Reason: moderate pain Last Admin: 06/07/21 06:58 Dose: 5 mg Documented by: Pharmacy Consult (Consult Rx Vancomycin Dosing) 1 each MISCELLANE DAILY PRN PRN Reason: Consult order Sodium Chloride (0.9 % Sodium Chloride Flush 3 Ml Syringe) 3 ml IVFLUSH QSHIFT [facility] Last Admin: 06/06/21 20:42 Dose: 3 ml Documented by: Home Medications Medication Instructions Recorded Confirmed Last Taken Type aripiprazole 20 mg tablet 20 mg PO DAILY tab 07/28/20 06/02/21 06/01/21 History dorzolamide 22.3 mg-timolol 6.8 1 drp OPHTHALMIC (EYE) BEDTIME 06/02/21 06/02/21 06/01/21 History mg/mL eye drops dorzolamide 22.3 mg-timolol 6.8 2 drp OPHTHALMIC (EYE) DAILY 06/02/21 06/02/21 06/01/21 History mg/mL eye drops empagliflozin 25 mg tablet 1 tab PO DAILY 06/02/21 06/02/21 06/01/21 History (Jardiance) netarsudil 0.02 %-latanoprost 1 drp OPHTHALMIC (EYE) DAILY 06/02/21 06/02/21 06/01/21 History 0.005 % eye drops (Rocklatan) Exam Exam Date and Time: June 07, 2021 075 Height,Weight and Vital Signs: Height 5 ft 9 in Weight 79.9 kg Last Vital Signs Temp 97.5 F 06/07/21 07:24 Pulse 70 06/07/21 07:24 Resp 20 06/07/21 07:24 BP 140/72 H 06/07/21 07:24 Pulse Ox 97 06/07/21 07:24 Pertinent Lab Results Pertinent Lab Results: Laboratory Tests 06/02/21 06/02/21 06/02/21 15:19 15:19 15:19 WBC 24.3 H RBC 4.17 L Hgb 11.7 L Hct 38.0 L MCV 91.1 MCH 28.1 MCHC 30.8 L RDW 14.4 Plt Count 342 MPV 12.0 Immature Gran % (Auto) 2.5 H Neut % (Auto) 87.8 H Lymph % (Auto) 5.1 L [place] % (Auto) 4.3 Eos % (Auto) 0.1 Baso % (Auto) 0.2 Lymph # (Auto) 1.2 [place] # (Auto) 1.0 Eos # (Auto) 0.0 Baso # (Auto) 0.1 Abs Immat Gran (auto) 0.60 H Absolute Neuts (auto) 21.4 H Absolute Nucleated RBC 0.000 Nucleated RBC % (auto) 0.0 Smear Tech's Comments VERIFIED PT INR Sodium 132 L Potassium 5.6 H Chloride 93 L Carbon Dioxide 30 H Anion Gap 15 BUN 30 H D Creatinine 1.54 H Estim Creat Clear Calc 58.9 Estimated GFR 46 POC Glucose Random Glucose 675 H* Lactic Acid 1.7 Calcium 9.0 Albumin Urine Color Urine Appearance Urine pH Ur Specific [place] Urine Protein Urine Glucose (UA) Urine Ketones Urine Blood Urine Nitrite Ur Leukocyte Esterase Urine RBC Urine WBC Ur Squamous Epith Cells Urine Bacteria Urine Yeast Vancomycin Trough Urine Opiates Screen Urine Fentanyl Screen Ur Barbiturates Screen Ur Phencyclidine Scrn Ur Amphetamines Screen U Benzodiazepines Scrn Urine Cocaine Screen U Marijuana (THC) Screen Acetone, Qual Negative COVID-19 (GILDA) COVID-19 Clin Com 06/02/21 06/02/21 06/02/21 16:57 17:30 18:15 WBC RBC Hgb Hct MCV MCH MCHC RDW Plt Count MPV Immature Gran % (Auto) Neut % (Auto) Lymph % (Auto) [place] % (Auto) Eos % (Auto) Baso % (Auto) Lymph # (Auto) [place] # (Auto) Eos # (Auto) Baso # (Auto) Abs Immat Gran (auto) Absolute Neuts (auto) Absolute Nucleated RBC Nucleated RBC % (auto) Smear Tech's Comments PT INR Sodium Potassium Chloride Carbon Dioxide Anion Gap BUN Creatinine Estim Creat Clear Calc Estimated GFR POC Glucose 559 H* 419 H* Random Glucose Lactic Acid Calcium Albumin Urine Color Urine Appearance Urine pH Ur Specific [place] Urine Protein Urine Glucose (UA) Urine Ketones Urine Blood Urine Nitrite Ur Leukocyte Esterase Urine RBC Urine WBC Ur Squamous Epith Cells Urine Bacteria Urine Yeast Vancomycin Trough Urine Opiates Screen Urine Fentanyl Screen Ur Barbiturates Screen Ur Phencyclidine Scrn Ur Amphetamines Screen U Benzodiazepines Scrn Urine Cocaine Screen U Marijuana (THC) Screen Acetone, Qual COVID-19 (GILDA) Negative COVID-19 Clin Com See Note 06/02/21 06/02/21 06/02/21 18:17 19:07 19:07 WBC RBC Hgb Hct MCV MCH MCHC RDW Plt Count MPV Immature Gran % (Auto) Neut % (Auto) Lymph % (Auto) [place] % (Auto) Eos % (Auto) Baso % (Auto) Lymph # (Auto) [place] # (Auto) Eos # (Auto) Baso # (Auto) Abs Immat Gran (auto) Absolute Neuts (auto) Absolute Nucleated RBC Nucleated RBC % (auto) Smear Tech's Comments PT INR Sodium 136 Potassium 4.5 Chloride 102 Carbon Dioxide 28 Anion Gap 11 L BUN 28 H Creatinine 1.14 Estim Creat Clear Calc 79.6 Estimated GFR > 60 POC Glucose Random Glucose 380 H* Lactic Acid Calcium 7.9 L D Albumin Urine Color YELLOW Urine Appearance CLEAR Urine pH 5.5 Ur Specific [place] 1.015 Urine Protein 1+ H Urine Glucose (UA) >=1000 H Urine Ketones NEG Urine Blood 3+ H Urine Nitrite POS H Ur Leukocyte Esterase NEG Urine RBC 1-4 Urine WBC 15-29 H Ur Squamous Epith Cells TRACE Urine Bacteria 1+ Urine Yeast TRACE Vancomycin Trough Urine Opiates Screen Not Detected Urine Fentanyl Screen Not Detected Ur Barbiturates Screen Not Detected Ur Phencyclidine Scrn Not Detected Ur Amphetamines Screen Not Detected U Benzodiazepines Scrn Not Detected Urine Cocaine Screen Not Detected U Marijuana (THC) Screen POSITIVE H Acetone, Qual COVID-19 (GILDA) COVID-19 [employer] 06/02/21 06/03/21 06/03/21 22:22 06:11 06:11 WBC 19.1 H RBC 3.18 L D Hgb 8.9 L D Hct 28.8 L D MCV 90.6 MCH 28.0 MCHC 30.9 L RDW 13.9 Plt Count 281 MPV 12.1 Immature Gran % (Auto) 2.3 H Neut % (Auto) 85.1 H Lymph % (Auto) 6.6 L [place] % (Auto) 5.3 Eos % (Auto) 0.5 Baso % (Auto) 0.2 Lymph # (Auto) 1.3 [place] # (Auto) 1.0 Eos # (Auto) 0.1 Baso # (Auto) 0.0 Abs Immat Gran (auto) 0.44 H Absolute Neuts (auto) 16.2 H Absolute Nucleated RBC 0.000 Nucleated RBC % (auto) 0.0 Smear Tech's Comments PT INR Sodium 140 Potassium 4.3 Chloride 106 Carbon Dioxide 25 Anion Gap 13 BUN 22 H Creatinine 0.89 Estim Creat Clear Calc 86.0 Estimated GFR > 60 POC Glucose 166 H Random Glucose 138 H D Lactic Acid Calcium 7.7 L Albumin Urine Color Urine Appearance Urine pH Ur Specific [place] Urine Protein Urine Glucose (UA) Urine Ketones Urine Blood Urine Nitrite Ur Leukocyte Esterase Urine RBC Urine WBC Ur Squamous Epith Cells Urine Bacteria Urine Yeast Vancomycin Trough Urine Opiates Screen Urine Fentanyl Screen Ur Barbiturates Screen Ur Phencyclidine Scrn Ur Amphetamines Screen U Benzodiazepines Scrn Urine Cocaine Screen U Marijuana (THC) Screen Acetone, Qual COVID-19 (GILDA) COVID-19 Clin Com 06/03/21 06/03/21 06/03/21 07:06 11:47 13:36 WBC RBC Hgb Hct MCV MCH MCHC RDW Plt Count MPV Immature Gran % (Auto) Neut % (Auto) Lymph % (Auto) [place] % (Auto) Eos % (Auto) Baso % (Auto) Lymph # (Auto) [place] # (Auto) Eos # (Auto) Baso # (Auto) Abs Immat Gran (auto) Absolute Neuts (auto) Absolute Nucleated RBC Nucleated RBC % (auto) Smear Tech's Comments PT INR Sodium Potassium Chloride Carbon Dioxide Anion Gap BUN Creatinine Estim Creat Clear Calc Estimated GFR POC Glucose 165 H 188 H Random Glucose Lactic Acid Calcium Albumin Urine Color Urine Appearance Urine pH Ur Specific [place] Urine Protein Urine Glucose (UA) Urine Ketones Urine Blood Urine Nitrite Ur Leukocyte Esterase Urine RBC Urine WBC Ur Squamous Epith Cells Urine Bacteria Urine Yeast Vancomycin Trough 10.6 Urine Opiates Screen Urine Fentanyl Screen Ur Barbiturates Screen Ur Phencyclidine Scrn Ur Amphetamines Screen U Benzodiazepines Scrn Urine Cocaine Screen U Marijuana (THC) Screen Acetone, Qual COVID-19 (GILDA) [employer] 06/03/21 06/03/21 06/04/21 15:28 20:48 06:09 WBC 16.6 H RBC 3.16 L Hgb 8.9 L Hct 28.3 L MCV 89.6 MCH 28.2 MCHC 31.4 RDW 14.0 Plt Count 281 MPV 11.9 Immature Gran % (Auto) Neut % (Auto) Lymph % (Auto) [place] % (Auto) Eos % (Auto) Baso % (Auto) Lymph # (Auto) [place] # (Auto) Eos # (Auto) Baso # (Auto) Abs Immat Gran (auto) Absolute Neuts (auto) Absolute Nucleated RBC 0.000 Nucleated RBC % (auto) 0.0 Smear Tech's Comments PT INR Sodium Potassium Chloride Carbon Dioxide Anion Gap BUN Creatinine Estim Creat Clear Calc Estimated GFR POC Glucose 283 H 382 H* Random Glucose Lactic Acid Calcium Albumin Urine Color Urine Appearance Urine pH Ur Specific [place] Urine Protein Urine Glucose (UA) Urine Ketones Urine Blood Urine Nitrite Ur Leukocyte Esterase Urine RBC Urine WBC Ur Squamous Epith Cells Urine Bacteria Urine Yeast Vancomycin Trough Urine Opiates Screen Urine Fentanyl Screen Ur Barbiturates Screen Ur Phencyclidine Scrn Ur Amphetamines Screen U Benzodiazepines Scrn Urine Cocaine Screen U Marijuana (THC) Screen Acetone, Qual COVID-19 (GILDA) [employer] 06/04/21 06/04/21 06/04/21 06:09 07:28 11:41 WBC RBC Hgb Hct MCV MCH MCHC RDW Plt Count MPV Immature Gran % (Auto) Neut % (Auto) Lymph % (Auto) [place] % (Auto) Eos % (Auto) Baso % (Auto) Lymph # (Auto) [place] # (Auto) Eos # (Auto) Baso # (Auto) Abs Immat Gran (auto) Absolute Neuts (auto) Absolute Nucleated RBC Nucleated RBC % (auto) Smear Tech's Comments PT INR Sodium 137 Potassium 4.3 Chloride 105 Carbon Dioxide 28 Anion Gap 8 L BUN 21 H Creatinine 0.97 Estim Creat Clear Calc 78.9 Estimated GFR > 60 POC Glucose 220 H 284 H Random Glucose 231 H D Lactic Acid Calcium 7.2 L D Albumin 2.1 L D Urine Color Urine Appearance Urine pH Ur Specific [place] Urine Protein Urine Glucose (UA) Urine Ketones Urine Blood Urine Nitrite Ur Leukocyte Esterase Urine RBC Urine WBC Ur Squamous Epith Cells Urine Bacteria Urine Yeast Vancomycin Trough Urine Opiates Screen Urine Fentanyl Screen Ur Barbiturates Screen Ur Phencyclidine Scrn Ur Amphetamines Screen U Benzodiazepines Scrn Urine Cocaine Screen U Marijuana (THC) Screen Acetone, Qual COVID-19 (GILDA) COVID-19 [employer] 06/04/21 06/04/21 06/04/21 14:14 16:20 20:36 WBC RBC Hgb Hct MCV MCH MCHC RDW Plt Count MPV Immature Gran % (Auto) Neut % (Auto) Lymph % (Auto) [place] % (Auto) Eos % (Auto) Baso % (Auto) Lymph # (Auto) [place] # (Auto) Eos # (Auto) Baso # (Auto) Abs Immat Gran (auto) Absolute Neuts (auto) Absolute Nucleated RBC Nucleated RBC % (auto) Smear Tech's Comments PT INR Sodium Potassium Chloride Carbon Dioxide Anion Gap BUN Creatinine Estim Creat Clear Calc Estimated GFR POC Glucose 326 H 341 H Random Glucose Lactic Acid Calcium Albumin Urine Color Urine Appearance Urine pH Ur Specific [place] Urine Protein Urine Glucose (UA) Urine Ketones Urine Blood Urine Nitrite Ur Leukocyte Esterase Urine RBC Urine WBC Ur Squamous Epith Cells Urine Bacteria Urine Yeast Vancomycin Trough 12.5 Urine Opiates Screen Urine Fentanyl Screen Ur Barbiturates Screen Ur Phencyclidine Scrn Ur Amphetamines Screen U Benzodiazepines Scrn Urine Cocaine Screen U Marijuana (THC) Screen Acetone, Qual COVID-19 (GILDA) COVID-19 [facility] 06/05/21 06/05/21 06/05/21 07:48 08:40 11:55 WBC RBC Hgb Hct MCV MCH MCHC RDW Plt Count MPV Immature Gran % (Auto) Neut % (Auto) Lymph % (Auto) [place] % (Auto) Eos % (Auto) Baso % (Auto) Lymph # (Auto) [place] # (Auto) Eos # (Auto) Baso # (Auto) Abs Immat Gran (auto) Absolute Neuts (auto) Absolute Nucleated RBC Nucleated RBC % (auto) Smear Tech's Comments PT INR Sodium Potassium Chloride Carbon Dioxide Anion Gap BUN Creatinine 0.85 Estim Creat Clear Calc 90.1 Estimated GFR > 60 POC Glucose 209 H 247 H Random Glucose Lactic Acid Calcium Albumin Urine Color Urine Appearance Urine pH Ur Specific [place] Urine Protein Urine Glucose (UA) Urine Ketones Urine Blood Urine Nitrite Ur Leukocyte Esterase Urine RBC Urine WBC Ur Squamous Epith Cells Urine Bacteria Urine Yeast Vancomycin Trough Urine Opiates Screen Urine Fentanyl Screen Ur Barbiturates Screen Ur Phencyclidine Scrn Ur Amphetamines Screen U Benzodiazepines Scrn Urine Cocaine Screen U Marijuana (THC) Screen Acetone, Qual COVID-19 (GILDA) [employer] 06/05/21 06/05/21 06/06/21 16:33 20:06 02:15 WBC RBC Hgb Hct MCV MCH MCHC RDW Plt Count MPV Immature Gran % (Auto) Neut % (Auto) Lymph % (Auto) [place] % (Auto) Eos % (Auto) Baso % (Auto) Lymph # (Auto) [place] # (Auto) Eos # (Auto) Baso # (Auto) Abs Immat Gran (auto) Absolute Neuts (auto) Absolute Nucleated RBC Nucleated RBC % (auto) Smear Tech's Comments PT INR Sodium Potassium Chloride Carbon Dioxide Anion Gap BUN Creatinine Estim Creat Clear Calc Estimated GFR POC Glucose 347 H 272 H Random Glucose Lactic Acid Calcium Albumin Urine Color Urine Appearance Urine pH Ur Specific [place] Urine Protein Urine Glucose (UA) Urine Ketones Urine Blood Urine Nitrite Ur Leukocyte Esterase Urine RBC Urine WBC Ur Squamous Epith Cells Urine Bacteria Urine Yeast Vancomycin Trough 14.3 Urine Opiates Screen Urine Fentanyl Screen Ur Barbiturates Screen Ur Phencyclidine Scrn Ur Amphetamines Screen U Benzodiazepines Scrn Urine Cocaine Screen U Marijuana (THC) Screen Acetone, Qual COVID-19 (GILDA) [employer] 06/06/21 06/06/21 06/06/21 07:13 12:05 15:18 WBC RBC Hgb Hct MCV MCH MCHC RDW Plt Count MPV Immature Gran % (Auto) Neut % (Auto) Lymph % (Auto) [place] % (Auto) Eos % (Auto) Baso % (Auto) Lymph # (Auto) [place] # (Auto) Eos # (Auto) Baso # (Auto) Abs Immat Gran (auto) Absolute Neuts (auto) Absolute Nucleated RBC Nucleated RBC % (auto) Smear Tech's Comments PT INR Sodium Potassium Chloride Carbon Dioxide Anion Gap BUN Creatinine Estim Creat Clear Calc Estimated GFR POC Glucose 169 H 228 H 300 H Random Glucose Lactic Acid Calcium Albumin Urine Color Urine Appearance Urine pH Ur Specific [place] Urine Protein Urine Glucose (UA) Urine Ketones Urine Blood Urine Nitrite Ur Leukocyte Esterase Urine RBC Urine WBC Ur Squamous Epith Cells Urine Bacteria Urine Yeast Vancomycin Trough Urine Opiates Screen Urine Fentanyl Screen Ur Barbiturates Screen Ur Phencyclidine Scrn Ur Amphetamines Screen U Benzodiazepines Scrn Urine Cocaine Screen U Marijuana (THC) Screen Acetone, Qual COVID-19 (GILDA) COVID-19 [facility] 06/06/21 06/07/21 06/07/21 19:12 05:58 05:58 WBC 11.8 H RBC 3.10 L Hgb 8.8 L Hct 28.4 L MCV 91.6 MCH 28.4 MCHC 31.0 RDW 14.5 Plt Count 334 MPV 11.2 Immature Gran % (Auto) Neut % (Auto) Lymph % (Auto) [place] % (Auto) Eos % (Auto) Baso % (Auto) Lymph # (Auto) [place] # (Auto) Eos # (Auto) Baso # (Auto) Abs Immat Gran (auto) Absolute Neuts (auto) Absolute Nucleated RBC 0.000 Nucleated RBC % (auto) 0.0 Smear Tech's Comments PT INR Sodium 136 Potassium 4.6 Chloride 102 Carbon Dioxide 27 Anion Gap 12 BUN 14 Creatinine 0.97 Estim Creat Clear Calc 78.9 Estimated GFR > 60 POC Glucose 278 H Random Glucose 252 H Lactic Acid Calcium 8.0 L D Albumin Urine Color Urine Appearance Urine pH Ur Specific [place] Urine Protein Urine Glucose (UA) Urine Ketones Urine Blood Urine Nitrite Ur Leukocyte Esterase Urine RBC Urine WBC Ur Squamous Epith Cells Urine Bacteria Urine Yeast Vancomycin Trough Urine Opiates Screen Urine Fentanyl Screen Ur Barbiturates Screen Ur Phencyclidine Scrn Ur Amphetamines Screen U Benzodiazepines Scrn Urine Cocaine Screen U Marijuana (THC) Screen Acetone, Qual COVID-19 ([facility]IDLA) COVID-19 [employer] 06/07/21 06/07/21 05:58 07:45 WBC RBC Hgb Hct MCV MCH MCHC RDW Plt Count MPV Immature Gran % (Auto) Neut % (Auto) Lymph % (Auto) [place] % (Auto) Eos % (Auto) Baso % (Auto) Lymph # (Auto) [place] # (Auto) Eos # (Auto) Baso # (Auto) Abs Immat Gran (auto) Absolute Neuts (auto) Absolute Nucleated RBC Nucleated RBC % (auto) Smear Tech's Comments PT 14.4 H INR 1.3 H Sodium Potassium Chloride Carbon Dioxide Anion Gap BUN Creatinine Estim Creat Clear Calc Estimated GFR POC Glucose 245 H Random Glucose Lactic Acid Calcium Albumin Urine Color Urine Appearance Urine pH Ur Specific [place] Urine Protein Urine Glucose (UA) Urine Ketones Urine Blood Urine Nitrite Ur Leukocyte Esterase Urine RBC Urine WBC Ur Squamous Epith Cells Urine Bacteria Urine Yeast Vancomycin Trough Urine Opiates Screen Urine Fentanyl Screen Ur Barbiturates Screen Ur Phencyclidine Scrn Ur Amphetamines Screen U Benzodiazepines Scrn Urine Cocaine Screen U Marijuana (THC) Screen Acetone, Qual COVID-19 (GILDA) COVID-19 Clin Com Airway Mallampati Class: II (Edentulous) TM Dist: >3cm Neck ROM: Full Loose/Missing/Broken Teeth: Yes, Upper and Lower Heart: RRR Lungs: MILD EXP WHEEZE ANTERIORLY Assessment and Plan Assessment Anesthesia Assessment: Anesthesia Plan Discussed and Chart Reviewed Final Anesthetic Review History of Problems with Anesthesia: No NPO: Yes ASA Class: III Final Preanesthetic Review: Meds/Allgs Chart Reviewed, Consent Obtained/Reviewed and Anes Risks/Benef Reviewed Patient Risk: Intermediate Procedure Risk: Low Anesthetic Plan Anesthetic Plan: GA Disposition: Standard PACU
[2021-06-07] MEDS: lisinopriL 40 MG TABLET PO (08:26)
[2021-06-07] MEDS: 0.9 % Sodium Chloride Flush 3 ML SYRINGE IVFLUSH ×2 (08:26→16:46)
[2021-06-07] MEDS: amLODIPine Besylate 10 MG TABLET PO (08:26)
[2021-06-07] MEDS: ARIPiprazole 20 MG TABLET PO (08:26)
[2021-06-07] MEDS: Dorzolamide/Timolo 2.23%/0.68% 10 ML DRBTL 2 DROP EYE-BOTH (08:27)
--- NOTE | 2021-06-07 09:06 | P.OP_ITS ---
Operative Note Operative Note Date of Service: 06/07/21 Narrative: Operative note by [facility] Preoperative diagnosis: Nonhealing left foot ulcer 2. Osteomyelitis Postoperative diagnosis: Same Procedure: Left below-knee amputation Surgeon:Isidro Lopez M.D. Fire Equipment Repairer Inspector: [place]asma Anesthesia: General Specimens: 1 Drains: None Estimated blood loss: Minimal Indications: 60-year-old gentleman with prior history transmetatarsal amputation, and diabetes had significant nonhealing left lower extremity ulcerations now presents for amputation. He has signed the informed consent after reviewing risks, complications, benefits, and alternatives previously discussed with the patient. The patient was given the opportunity to ask any additional questions or voice any concerns. All questions were answered to the patient's satisfaction. Procedure in detail: Patient was brought to the operating room prior to which a time-out was called for patient identification and site verification. Left leg was prepped and draped in a standard surgical fashion. Approximately 10 cm below the tibial tuberosity curvilinear incision was undertaken over the pretibial surface. Posterior flap was then created. On incision was carried down through the skin muscle subcu. Once this was accomplished posterior flap was dissected free as well. We placed a lap pad underneath the tibia. Reverse hockey stick shaped cut was created using a power saw on the tibia. Once this was accomplished power saw was used to transect the fibula as well. This was subsequently filed down. 2-0 silk ties were used to ligate the anterior tibial posterior tibial and peroneal arteries. Once this was accomplished adequate hemostasis was achieved. Bone edges were filed down. Flap deep layer was re approximated using 2 0 poly Sorb. Superficial layer with 3-0 poly sore. Finally skin with 2 0 nylon in a mattress fashion along with skin clips. Steri- Strips and a sterile dressing were applied. At the end of the case sponge instrument counts were correct. Patient tolerated the procedure well. Returned to recovery with stable vitals. This note is constructed using voice recognition software. While every effort has been made to ensure accuracy, physical therapy professor errors may have been included. Thank you for allowing me to participate in the care of your patient. Yours sincerely, Isidro Lopez MD, FACS, R.P.V.I.
[2021-06-07] MEDS: Albuterol/Iprat 2.5/0.5MG 3 ML AMPUL.NEB INHALE (09:10)
--- NOTE | 2021-06-07 09:30 | CA_ITS ---
Transthoracic Echocardiogram Patient (Last, First, Middle): Uriah Morrow N Gender: Male Date of : 1960 Age: 60 Procedure Date: 06/07/2021 Procedure Type: Transthoracic Echocardiogram Location: S3E Height: 175.26 cm Weight: 79.83 kg BSA: 1.96 m2 Heart Rate: bpm BP: 174 / 79 mmHg Desktop Architect: MAXWELL Dotson MD: Marv Jaramillo MD Resistance Welding Machine Operator: Jonathon Eli MD Symptoms: MSSA bacteremia rule out vegetations Study Quality: Fair ECG Rhythm: Sinus Conclusions: - 1. No clear vegetations seen on this study 2. Normal LV systolic and diastolic function 3. Normal cardiac valvular Dopplers 4. Normal RVSP 5. No pericardial effusion Findings Left Ventricle Normal left ventricular size, thickness, and systolic function. The visually estimated ejection fraction is between 60-65%. Spectral Doppler is indicative of a normal filling pattern. Right Ventricle Normal right ventricular cavity size and systolic function. Atria The left atrium is likely dilated. There is lipomatous hypertrophy of the interatrial septum. There is no evidence of interatrial shunt. The right atrium is normal in size. Aortic Valve The aortic valve structure and function is likely normal. There is no aortic valve stenosis. There is no evidence of a mass on the aortic valve. There is no aortic valve regurgitation. Mitral Valve There is mild anterior and moderate posterior mitral leaflet thickening. There is mild mitral annular calcification. There is trace mitral valve regurgitation. There is no mitral valve stenosis. There is no mass noted on the mitral valve. Pulmonic Valve The pulmonic valve was not well visualized. Tricuspid Valve Likely normal tricuspid valve structure and function. There is trace tricuspid valve regurgitation. The right ventricular systolic pressure is normal. Normal right atrial pressure. There is no evidence of pulmonary hypertension. Great Vessels All visible segments of the aorta are normal in size. The pulmonary artery was not well visualized. Venous The inferior vena cava is normal in size and collapses greater than 50% with inspiration. Pericardium/Pleural There is no evidence of pericardial effusion. Prior Study Comparison No significant change compared to prior study dated: 12/22/2017. Recommendations, Care & Conclusions Consider a KIRT if clinically appropriate. Measurements 2D Linear Measurements IVSd: 1.08 0.6-0.9/0.6-1.0 cm LVIDd: 5.40 3.9-5.3/4.2-5.9 cm LVIDd Index: 2.76 2.4-3.2/2.2-3.1 cm/m2 LVIDs: 3.10 2.0-3.6 cm LVPWd: 1.04 0.7-1.1 cm Ao Root: 3.50 2.1-3.5 cm LA Diam: 3.20 2.7-3.8/3.0-4.0 cm LAIDs Index: 1.63 1.5-2.3 cm/m2 LV Mass: 278.51 67-162/88-224 g LV Mass Index: 142.10 43-95/49-115 g/m2 LVOT Diam: 2.20 3.0+(-)1.3 cm Mitral Valve MV Pk E: 0.65 MV PK A: 0.61 MV Decel Time: 332.00 E/A: 1.10 E'Lateral: 12.10 E'Medial: 8.49 E/E' Med: 7.70 E/E' Lat: 5.40 PHT: 97.00 MVA PHT: 2.27 Decel Mathews: 1.96 Aortic Valve AoV Pk Ryland: 1.59 AoV Mn Ryland: 1.04 AoV VTI: 0.33 AoV Pk Grad: 10.00 Aov Mn Grad: 5.00 SANTY Cont.VTI: 2.82 LVOT LVOT Pk Ryland: 1.22 LVOT Mn Ryland: 0.77 LVOT VTI: 0.25 LVOT Pk Grad: 6.00 LVOT Mn Grad: 3.00 LVOT Diam: 2.20 LVOT Area: 3.80 Diastolic Function MV Pk E: 0.65 MV Pk A: 0.61 E/A: 1.10 E'Medial: 8.49 E/E' Med: 7.70 E' Laterial: 12.10 E/E' Lat: 5.40 Right Ventricle TAPSE (mm): 2.21 TVS' Ryland: 13.40 Tricuspid Valve TR Pk Ryland: 2.02 TR Pk Grad: 16.00 RA Press: 3.00 RVSP: 19.00 Great Vessels Aorta Ao Root-2D: 3.50 2.0-3.7 cm Ao Asc: 3.10 2.1-3.4 cm Updated in Other Vendor System with Status of Final Jonathon Eli MD electronically signed on 06/07/2021 10:50:15 AM with status of Final
--- NOTE | 2021-06-07 10:27 | HO.PM.IMPN ---
Subjective Subjective Date of Service: 06/07/21 Interval History: the patient was seen and evaluated this morning Laying in bed, leg pain improved plan for surgery today No reported other overnight events. Systemic review: No fever, chills or weakness No chest pain, palpitation No shortness of breath or coughing No abdominal pain, nausea or vomiting No urinary symptoms wound in his foot Physical Exam Vital Signs: Vital Signs: Last Vital Signs Temp 98.5 F 06/07/21 08:52 Pulse 57 06/07/21 09:11 Resp 20 06/07/21 09:11 BP 125/64 06/07/21 08:52 Pulse Ox 96 06/07/21 08:52 BMI result Body Mass Index 25.9 Const: Other: Constitutional : Alert, oriented, not in distress Neck : Normal inspection, Supple Cardiovascular : RRR, S1 S2, no lower extremity edema Respiratory : Good bilateral air entry, no crackles, wheezes or rhonchi Gastrointestinal: soft, lax, Normal bowel sounds, Non tender Skin : Warm, Dry Musculoskeletal, left lower extremity transmetatarsal amputation with deep ulcers and falls min Ng, drainage. Neurological : Alert & oriented x3, No focal deficit Objective Data Active Medications Acetaminophen (Acetaminophen 325 Mg Tablet) 650 mg PO Q6H PRN PRN Reason: Pain, Mild (Pain Scale 1-3) Last Admin: 06/06/21 16:21 Dose: 650 mg Documented by: ELMA Amlodipine Besylate (Amlodipine Besylate 10 Mg Tablet) 10 mg PO DAILY [facility]; Protocol Last Admin: 06/07/21 08:26 Dose: 10 mg Documented by: CHRISTIANO Aripiprazole (Aripiprazole 20 Mg Tablet) 20 mg PO DAILY [facility] Last Admin: 06/07/21 08:26 Dose: 20 mg Documented by: CHRISTIANO Dextrose (Dextrose 50 % 25 Gm/50 Ml Vial) 25 gm IVPUSH Q15M PRN; Protocol PRN Reason: per Hypoglycemia Standing Ord. Docusate Sodium (Docusate Sodium 100 Mg Capsule) 100 mg PO DAILY PRN PRN Reason: Constipation Dorzolamide/Timolol (Dorzolamide/Timolo 2.23%/0.68% 10 Ml Drbtl) 1 drop EYE-BOTH BEDTIME [facility] Last Admin: 06/06/21 20:43 Dose: 1 drop Documented by: RAMBO Dorzolamide/Timolol (Dorzolamide/Timolo 2.23%/0.68% 10 Ml Drbtl) 2 drop EYE-BOTH DAILY [facility] Last Admin: 06/07/21 08:27 Dose: 2 drop Documented by: CHRISTIANO Glucose (Glucose Gel 15 Gm Gel..Gram.) 15 gm PO Q15M PRN; Protocol PRN Reason: per Hypoglycemia Standing Ord. Cefazolin Sodium/Dextrose (Ancef) 2 gm in 50 mls @ 100 mls/hr IV Q8H [facility] Last Infusion: 06/07/21 05:19 Dose: 0 mls/hr Documented by: RAMBO Insulin Glargine (Insulin Glargine,Hum.Rec.Anlog 100 Unit/Ml 10 Ml Vial) 15 unit SUBCUT DAILY [facility] Last Admin: 06/07/21 07:56 Dose: Not Given Documented by: CHRISTIANO Non-Admin Reason: NPO Insulin Human Lispro (Insulin Lispro 100 Unit/Ml 3 Ml Vial) 0 unit SUBCUT QIDACHS [facility]; Protocol Last Admin: 06/07/21 07:55 Dose: Not Given Documented by: CHRISTIANO Non-Admin Reason: NPO Lisinopril (Lisinopril 40 Mg Tablet) 40 mg PO DAILY [facility]; Protocol Last Admin: 06/07/21 08:26 Dose: 40 mg Documented by: CHRISTIANO Morphine Sulfate (Morphine Sulfate 2 Mg/Ml Cartridge) 2 mg IVPUSH Q2H PRN; Protocol PRN Reason: severe pain Ondansetron HCl (Ondansetron Hcl 4 Mg/2 Ml Vial) 4 mg IVPUSH Q8H PRN PRN Reason: Nausea and Vomiting Oxycodone HCl (Oxycodone Hcl Immed Release 5 Mg Tablet) 5 mg PO Q4H PRN PRN Reason: moderate pain Last Admin: 06/07/21 06:58 Dose: 5 mg Documented by: KATIE Pharmacy Consult (Consult Rx Vancomycin Dosing) 1 each MISCELLANE DAILY PRN PRN Reason: Consult order Sodium Chloride (0.9 % Sodium Chloride Flush 3 Ml Syringe) 3 ml IVFLUSH QSHIFT [facility] Last Admin: 06/07/21 08:26 Dose: 3 ml Documented by: CHRISTIANO Labs CBC & Chem 7: 06/07/21 05:58 06/07/21 05:58 Labs: Laboratory Results - last 24 hr 06/06/21 06/06/21 06/06/21 12:05 15:18 19:12 MCV MCH MCHC RDW Plt Count MPV Absolute Nucleated RBC Nucleated RBC % (auto) PT INR Anion Gap Estim Creat Clear Calc Estimated GFR POC Glucose 228 H 300 H 278 H Random Glucose Calcium Blood Type Antibody Screen 06/07/21 06/07/21 06/07/21 05:58 05:58 05:58 MCV 91.6 MCH 28.4 MCHC 31.0 RDW 14.5 Plt Count 334 MPV 11.2 Absolute Nucleated RBC 0.000 Nucleated RBC % (auto) 0.0 PT INR Anion Gap 12 Estim Creat Clear Calc 78.9 Estimated GFR > 60 POC Glucose Random Glucose 252 H Calcium 8.0 L D Blood Type A Negative Antibody Screen NEGATIVE 06/07/21 06/07/21 05:58 07:45 MCV MCH MCHC RDW Plt Count MPV Absolute Nucleated RBC Nucleated RBC % (auto) PT 14.4 H INR 1.3 H Anion Gap Estim Creat Clear Calc Estimated GFR POC Glucose 245 H Random Glucose Calcium Blood Type Antibody Screen Microbiology Microbiology Results: Microbiology 06/04/21 13:55 Blood Culture - Preliminary Blood - Venous No growth after 48 hours. 06/04/21 13:55 Blood Culture - Preliminary Blood - Venous No growth after 48 hours. Assessment and Plan (1) Bacteremia due to Gram-positive bacteria: Status: Acute (2) Osteomyelitis: Status: Acute (3) Acute UTI: Status: Acute Assessment and Plan: this is a 60-year-old male with past medical history of diabetes as well as PVD status post left foot metatarsal amputation presents to the hospital with nonhealing # Gram-positive bacteremia 2/2 left foot osteomyelitis nonhealing wound CT angiogram of the left extremities showed anterior tibial abnormality cultures growing MSSA, repeated blood culture negative up to this point continue cefazolin day Finishes 07/14/2021 vascular surgery to do amputation today id input appreciated, changed to cefazolin for total of [address] PICC line tomorrow # UTI Urinalysis showing infection negative urine culture on IV antibiotics as above # hyperglycemia 2/2 DM treated improved LDSSI, diabetic diet # HTN stable continue home medications DVT ppx: scds in anticipation of surgical intervention Quality Stroke Does the patient have a stroke diagnosis?: No VTE Prior VTE?: No VTE Risk Level:: Medical - moderate - high VTE Device Contraindication: Treatment Not Indicated VTE Drug Contraindication: N/A - Med Ordered
--- NOTE | 2021-06-07 10:40 | MHC.SHP ---
Pre-Procedural Eval Section A Date of Service: 06/07/21 The patient is an INPATIENT: Yes The History & Physical has been completed within 30 days and I have reviewed it.: Yes Section B Chief Complaint: Osteomyelitis, UTI Allergies: Allergies Allergy/AdvReac Type Severity Reaction Status Date / Time No Known Allergies Allergy Verified 02/24/21 15:40 [No Known Allergies*] Plan I have reviewed the history and physical and performed a pertinent physical examination on my patient. No changes have occurred unless specified.
[2021-06-07] MEDS: fentaNYL citrate/PF 100 MCG/2 ML VIAL 50 MCG IVPUSH ×2 (12:19→12:32)
[2021-06-07 13:21] LABS: Glucose, Whole Blood 248 mg/dL (60-115)
[2021-06-07] MEDS: Insulin Lispro 100 UNIT/ML 3 ML VIAL SUBCUT ×3 (13:30→20:00)
--- NOTE | 2021-06-07 15:31 | MHC.CM.PN ---
EMR REVIEWED, PER MULTIDISCIPLINARY ROUNDS PT WILL HAVE AMP TODAY AND WILL NEED 6 WKS IV ABX WELL AT A SNF, CM TO MEET W/PT TO DISCUSS SNF PREFERENCES W/PT AND PLACE REFERRALS.
[2021-06-07 16:11] LABS: Glucose, Whole Blood 322 mg/dL (60-115)
[2021-06-07] MEDS: Morphine Sulfate 2 MG/ML CARTRIDGE IVPUSH ×2 (16:48→20:01)
[2021-06-07 19:53] LABS: Glucose, Whole Blood 270 mg/dL (60-115)
[2021-06-07] MEDS: Dorzolamide/Timolo 2.23%/0.68% 10 ML DRBTL 1 DROP EYE-BOTH (20:08)
[2021-06-08] VITALS (9 sets, daily range): BP systolic 103–169; BP diastolic 59–78; PULSE 77–91; RESP 16–20; TEMP 36.2–37.3; O2SAT 84–97
[2021-06-08] MEDS: Morphine Sulfate 2 MG/ML CARTRIDGE IVPUSH ×3 (00:36→13:04)
[2021-06-08] MEDS: 0.9 % Sodium Chloride Flush 3 ML SYRINGE IVFLUSH ×4 (00:36→20:14)
[2021-06-08] MEDS: ceFAZolin Sodium/Dextrose,Iso 2 GM/50 ML PIGGYBACK IV ×3 (04:45→20:15)
[2021-06-08 06:08] LABS: Hematocrit 26.2 % (42.0-52.0); Hemoglobin 7.9 g/dl (14.0-18.0); Mean Corpuscular HGB Conc 30.2 g/dl (31.0-36.0); Mean Corpuscular Hemoglobin 27.5 pg (27.0-33.0); Mean Corpuscular Volume 91.3 fL (80.0-98.0); Mean Platelet Volume 10.7 fL (9.4-12.4); Platelet Count 344 X10*3/uL (160-400); Red Blood Count 2.87 X10*6/uL (4.60-5.80); Red Cell Distribution Width 14.3 % (11.0-16.0); White Blood Count 12.6 X10*3/uL (4.8-10.8)
[2021-06-08 06:38] LABS: Anion Gap 11 (12-20); Blood Urea Nitrogen 15 mg/dL (9-16); Calcium 7.9 mg/dL (8.4-10.2); Carbon Dioxide 26 mmol/L (22-29); Chloride 104 mmol/L (96-108); Estimated Glomerular Filt Rate > 60; Glucose Random 233 mg/dL (60-115); Potassium 4.5 mmol/L (3.3-5.1); Sodium 136 mmol/L (135-145)
[2021-06-08 07:40] LABS: Glucose, Whole Blood 198 mg/dL (60-115)
[2021-06-08] MEDS: Insulin Lispro 100 UNIT/ML 3 ML VIAL SUBCUT ×4 (07:47→20:14)
[2021-06-08] MEDS: Insulin Glargine,Hum.rec.anlog 100 UNIT/ML 10 ML VIAL 15 UNIT SUBCUT (07:48)
[2021-06-08] MEDS: ARIPiprazole 20 MG TABLET PO (07:48)
[2021-06-08] MEDS: amLODIPine Besylate 10 MG TABLET PO (07:48)
[2021-06-08] MEDS: lisinopriL 40 MG TABLET PO (07:48)
[2021-06-08] MEDS: Acetaminophen 325 MG TABLET 650 MG PO (07:51)
[2021-06-08] MEDS: oxyCODONE HCl Immed Release 5 MG TABLET PO ×2 (07:52→16:19)
--- NOTE | 2021-06-08 09:30 | P.PNVS_ITS ---
Subjective Subjective Date of Service: 06/08/21 Patient reports: no new complaints and feels better Interval history: Patient seen and examined. He is postop day 1 status post BKA. Doing relatively well. Pain reasonably controlled. He was resting comfortably in bed this morning. He is now for postoperative follow-up. Physical Exam Vital Signs: Vital Signs: Last Vital Signs Temp 98.5 F 06/08/21 07:46 Pulse 91 06/08/21 07:46 Resp 18 06/08/21 07:46 BP 139/65 06/08/21 07:46 Pulse Ox 94 06/08/21 07:46 Oxygen Flow Rate 6.0 06/07/21 11:44 BMI result Body Mass Index 25.9 Const: General: cooperative, healthy appearing and no acute distress Orientation/consciousness: oriented to person, oriented to place and oriented to time HENMT: Head: Yes normal to inspection Neck: Carotids: no bruits Chest: Chest palpation & inspection: normal inspection of the chest Resp: Effort & Inspection: normal respiratory effort and able to speak in complete sentences Auscultation: clear to auscultation bilaterally Cardio: Rate: regular rate Heart sounds: S1 normal heart sound present and S2 normal heart sound present GI: Inspection: Yes normal to inspection Skin: General skin exam: no rashes or lesions noted Wounds: amputation site (Dressing clean dry intact) Neuro: General: oriented to person, oriented to place, oriented to time and CN's II-XI intact bilaterally Extrem: General: Yes normal to inspection, Yes full ROM and Yes no clubbing, cyanosis or edema Psych: Appearance: grossly normal and well kempt Speech and movement: Normal speech and movement present Affect: normal affect Progress Note: A&P Assessment and plan (1) Peripheral artery disease: Status: Acute Assessment and Plan: In short patient is status post below-knee amputation. He appears to be doing relatively well. We have discussed routine exercises and mobilization. Would recommend starting physical therapy today. He will be for dressing change for tomorrow. Thank you for allowing us to assist in his care. Fall Risk Details Current Medications: Current Medications Acetaminophen (Acetaminophen 325 Mg Tablet) 650 mg PO Q6H PRN PRN Reason: Pain, Mild (Pain Scale 1-3) Last Admin: 06/08/21 07:51 Dose: 650 mg Documented by: Acetaminophen (Acetaminophen 325 Mg Tablet) 650 mg PO ONCE PRN PRN Reason: Pain, Mild (Pain Scale 1-3) Albuterol Sulfate (Albuterol Sulfate (0.083%) 2.5 Mg/3 Ml Vial.Neb) 2.5 mg INHALE ONCE PRN PRN Reason: Wheezing Amlodipine Besylate (Amlodipine Besylate 10 Mg Tablet) 10 mg PO DAILY [facility]; Protocol Last Admin: 06/08/21 07:48 Dose: 10 mg Documented by: Aripiprazole (Aripiprazole 20 Mg Tablet) 20 mg PO DAILY [facility] Last Admin: 06/08/21 07:48 Dose: 20 mg Documented by: Dextrose (Dextrose 50 % 25 Gm/50 Ml Vial) 25 gm IVPUSH Q15M PRN; Protocol PRN Reason: per Hypoglycemia Standing Ord. Docusate Sodium (Docusate Sodium 100 Mg Capsule) 100 mg PO DAILY PRN PRN Reason: Constipation Dorzolamide/Timolol (Dorzolamide/Timolo 2.23%/0.68% 10 Ml Drbtl) 1 drop EYE- BOTH BEDTIME [facility] Last Admin: 06/08/21 07:48 Dose: 1 drop Documented by: Dorzolamide/Timolol (Dorzolamide/Timolo 2.23%/0.68% 10 Ml Drbtl) 2 drop EYE- BOTH DAILY [facility] Last Admin: 06/07/21 08:27 Dose: 2 drop Documented by: Fentanyl (Fentanyl Citrate/Pf 100 Mcg/2 Ml Vial) 50 mcg IVPUSH Q5M PRN; Protocol PRN Reason: Pain, Severe (Pain Scale 7-10) Last Admin: 06/07/21 12:32 Dose: 50 mcg Documented by: Fentanyl (Fentanyl Citrate/Pf 100 Mcg/2 Ml Vial) 25 mcg IVPUSH Q5M PRN; Protocol PRN Reason: Pain, Moderate (Pain Scale 4-6 Glucose (Glucose Gel 15 Gm Gel..Gram.) 15 gm PO Q15M PRN; Protocol PRN Reason: per Hypoglycemia Standing Ord. Hydromorphone HCl (Hydromorphone Hcl 0.5 Mg/0.5 Ml Syringe) 0.25 mg IVPUSH Q5M PRN; Protocol PRN Reason: Pain, Severe (Pain Scale 7-10) Cefazolin Sodium/Dextrose (Ancef) 2 gm in 50 mls @ 100 mls/hr IV Q8H [facility] Last Infusion: 06/08/21 05:17 Dose: Infused Documented by: Insulin Glargine (Insulin Glargine,Hum.Rec.Anlog 100 Unit/Ml 10 Ml Vial) 15 unit SUBCUT DAILY [facility] Last Admin: 06/08/21 07:48 Dose: 15 unit Documented by: Insulin Human Lispro (Insulin Lispro 100 Unit/Ml 3 Ml Vial) 0 unit SUBCUT QIDACHS [facility]; Protocol Last Admin: 06/08/21 07:47 Dose: 2 unit Documented by: Lisinopril (Lisinopril 40 Mg Tablet) 40 mg PO DAILY [facility]; Protocol Last Admin: 06/08/21 07:48 Dose: 40 mg Documented by: Morphine Sulfate (Morphine Sulfate 2 Mg/Ml Cartridge) 2 mg IVPUSH Q2H PRN; Protocol PRN Reason: severe pain Last Admin: 06/08/21 05:18 Dose: 2 mg Documented by: Ondansetron HCl (Ondansetron Hcl 4 Mg/2 Ml Vial) 4 mg IVPUSH Q8H PRN PRN Reason: Nausea and Vomiting Ondansetron HCl (Ondansetron Hcl 4 Mg/2 Ml Vial) 4 mg IVPUSH ONCE PRN PRN Reason: Nausea and Vomiting Oxycodone HCl (Oxycodone Hcl Immed Release 5 Mg Tablet) 5 mg PO Q4H PRN PRN Reason: moderate pain Last Admin: 06/08/21 07:52 Dose: 5 mg Documented by: Pharmacy Consult (Consult Rx Vancomycin Dosing) 1 each MISCELLANE DAILY PRN PRN Reason: Consult order Sodium Chloride (0.9 % Sodium Chloride Flush 3 Ml Syringe) 3 ml IVFLUSH QSHIFT [facility] Last Admin: 06/08/21 07:48 Dose: 3 ml Documented by: Time Spent With Patient Time: Total time spent is greater than 50% in coordination of care (as documented) at patient's floor/unit and/or counseling patient: Time with patient: 15 - 24 minutes Procedures Date of Service Date of Service: 06/08/21 Quality Stroke Does the patient have a stroke diagnosis?: No VTE Prior VTE?: No VTE Risk Level:: Medical - moderate - high VTE Device Contraindication: Treatment Not Indicated VTE Drug Contraindication: N/A - Med Ordered
[2021-06-08] MEDS: Dorzolamide/Timolo 2.23%/0.68% 10 ML DRBTL 2 DROP EYE-BOTH (09:58)
--- NOTE | 2021-06-08 11:28 | P.PNIM_ITS ---
Subjective Subjective Date of Service: 06/08/21 Interval History: the patient was seen and evaluated this morning Laying in bed, pain under good control after surgery having bowel movement No reported other overnight events. Systemic review: No fever, chills or weakness No chest pain, palpitation No shortness of breath or coughing No abdominal pain, nausea or vomiting No urinary symptoms wound in his foot covered with dressing postop Physical Exam Vital Signs: Vital Signs: Last Vital Signs Temp 98.5 F 06/08/21 07:46 Pulse 91 06/08/21 07:46 Resp 18 06/08/21 07:46 BP 139/65 06/08/21 07:46 Pulse Ox 94 06/08/21 07:46 Oxygen Flow Rate 6.0 06/07/21 11:44 BMI result Body Mass Index 25.9 Const: Other: Constitutional : Alert, oriented, not in distress Neck : Normal inspection, Supple Cardiovascular : RRR, S1 S2, no lower extremity edema Respiratory : Good bilateral air entry, no crackles, wheezes or rhonchi Gastrointestinal: soft, lax, Normal bowel sounds, Non tender Skin : Warm, Dry Musculoskeletal, left lower extremity BKA with no drainage noted around dressing. Neurological : Alert & oriented x3, No focal deficit Objective Data Active Medications Acetaminophen (Acetaminophen 325 Mg Tablet) 650 mg PO Q6H PRN PRN Reason: Pain, Mild (Pain Scale 1-3) Last Admin: 06/08/21 07:51 Dose: 650 mg Documented by: CHRISTIANO Acetaminophen (Acetaminophen 325 Mg Tablet) 650 mg PO ONCE PRN PRN Reason: Pain, Mild (Pain Scale 1-3) Albuterol Sulfate (Albuterol Sulfate (0.083%) 2.5 Mg/3 Ml Vial.Neb) 2.5 mg INHALE ONCE PRN PRN Reason: Wheezing Amlodipine Besylate (Amlodipine Besylate 10 Mg Tablet) 10 mg PO DAILY [facility]; Protocol Last Admin: 06/08/21 07:48 Dose: 10 mg Documented by: CHRISTIANO Aripiprazole (Aripiprazole 20 Mg Tablet) 20 mg PO DAILY [facility] Last Admin: 06/08/21 07:48 Dose: 20 mg Documented by: CHRISTIANO Dextrose (Dextrose 50 % 25 Gm/50 Ml Vial) 25 gm IVPUSH Q15M PRN; Protocol PRN Reason: per Hypoglycemia Standing Ord. Docusate Sodium (Docusate Sodium 100 Mg Capsule) 100 mg PO DAILY PRN PRN Reason: Constipation Dorzolamide/Timolol (Dorzolamide/Timolo 2.23%/0.68% 10 Ml Drbtl) 1 drop EYE- BOTH BEDTIME [facility] Last Admin: 06/07/21 20:08 Dose: 1 drop Documented by: Dorzolamide/Timolol (Dorzolamide/Timolo 2.23%/0.68% 10 Ml Drbtl) 2 drop EYE- BOTH DAILY [facility] Last Admin: 06/08/21 09:58 Dose: 2 drop Documented by: CHRISTIANO Fentanyl (Fentanyl Citrate/Pf 100 Mcg/2 Ml Vial) 50 mcg IVPUSH Q5M PRN; Protocol PRN Reason: Pain, Severe (Pain Scale 7-10) Last Admin: 06/07/21 12:32 Dose: 50 mcg Documented by: ERIKA Fentanyl (Fentanyl Citrate/Pf 100 Mcg/2 Ml Vial) 25 mcg IVPUSH Q5M PRN; Protocol PRN Reason: Pain, Moderate (Pain Scale 4-6 Glucose (Glucose Gel 15 Gm Gel..Gram.) 15 gm PO Q15M PRN; Protocol PRN Reason: per Hypoglycemia Standing Ord. Hydromorphone HCl (Hydromorphone Hcl 0.5 Mg/0.5 Ml Syringe) 0.25 mg IVPUSH Q5M PRN; Protocol PRN Reason: Pain, Severe (Pain Scale 7-10) Cefazolin Sodium/Dextrose (Ancef) 2 gm in 50 mls @ 100 mls/hr IV Q8H [facility] Last Infusion: 06/08/21 05:17 Dose: 0 mls/hr Documented by: RAMONA Insulin Glargine (Insulin Glargine,Hum.Rec.Anlog 100 Unit/Ml 10 Ml Vial) 15 unit SUBCUT DAILY [facility] Last Admin: 06/08/21 07:48 Dose: 15 unit Documented by: CHRISTIANO Insulin Human Lispro (Insulin Lispro 100 Unit/Ml 3 Ml Vial) 0 unit SUBCUT QIDACHS [facility]; Protocol Last Admin: 06/08/21 07:47 Dose: 2 unit Documented by: CHRISTIANO Lisinopril (Lisinopril 40 Mg Tablet) 40 mg PO DAILY [facility]; Protocol Last Admin: 06/08/21 07:48 Dose: 40 mg Documented by: CHRISTIANO Morphine Sulfate (Morphine Sulfate 2 Mg/Ml Cartridge) 2 mg IVPUSH Q2H PRN; Protocol PRN Reason: severe pain Last Admin: 06/08/21 05:18 Dose: 2 mg Documented by: RAMONA Ondansetron HCl (Ondansetron Hcl 4 Mg/2 Ml Vial) 4 mg IVPUSH Q8H PRN PRN Reason: Nausea and Vomiting Ondansetron HCl (Ondansetron Hcl 4 Mg/2 Ml Vial) 4 mg IVPUSH ONCE PRN PRN Reason: Nausea and Vomiting Oxycodone HCl (Oxycodone Hcl Immed Release 5 Mg Tablet) 5 mg PO Q4H PRN PRN Reason: moderate pain Last Admin: 06/08/21 07:52 Dose: 5 mg Documented by: CHRISTIANO Pharmacy Consult (Consult Rx Vancomycin Dosing) 1 each MISCELLANE DAILY PRN PRN Reason: Consult order Sodium Chloride (0.9 % Sodium Chloride Flush 3 Ml Syringe) 3 ml IVFLUSH [facility] Last Admin: 06/08/21 07:48 Dose: 3 ml Documented by: CHRISTIANO Labs CBC & Chem 7: 06/08/21 05:42 06/08/21 05:42 Labs: Laboratory Results - last 24 hr 06/07/21 06/07/21 06/07/21 13:18 15:57 19:40 MCV MCH MCHC RDW Plt Count MPV Absolute Nucleated RBC Nucleated RBC % (auto) Anion Gap Estim Creat Clear Calc Estimated GFR POC Glucose 248 H 322 H 270 H Random Glucose Calcium 06/08/21 06/08/21 06/08/21 05:42 05:42 07:20 MCV 91.3 MCH 27.5 MCHC 30.2 L RDW 14.3 Plt Count 344 MPV 10.7 Absolute Nucleated RBC 0.000 Nucleated RBC % (auto) 0.0 Anion Gap 11 L Estim Creat Clear Calc 88.0 Estimated GFR > 60 POC Glucose 198 H Random Glucose 233 H Calcium 7.9 L Assessment and Plan (1) Bacteremia due to Gram-positive bacteria: Status: Acute (2) Osteomyelitis: Status: Acute Assessment and Plan: this is a 60-year-old male with past medical history of diabetes as well as PVD status post left foot metatarsal amputation presents to the hospital with nonhealing # Gram-positive bacteremia 2/2 left foot osteomyelitis postop day 1, post Lt BKA CT angiogram of the left extremities showed anterior tibial abnormality cultures growing MSSA, repeated blood culture negative up to this point continue cefazolin day Finishes 07/14/2021 vascular surgery to do amputation today id input appreciated, changed to cefazolin for total of [address] PICC line today # UTI Urinalysis showing infection treated # hyperglycemia 2/2 DM treated improved LDSSI, diabetic diet # HTN stable continue home medications DVT ppx: scds in anticipation of surgical intervention Quality Stroke Does the patient have a stroke diagnosis?: No VTE Prior VTE?: No VTE Risk Level:: Medical - moderate - high VTE Device Contraindication: Treatment Not Indicated VTE Drug Contraindication: N/A - Med Ordered
--- NOTE | 2021-06-08 12:58 | HO.PICC ---
PICC Line Insertion NPICC Diagnosis: [Bacteremia] Indication: [alf antibiotics needed] Pertinent Labs: [Reviewed] Technique: Following informed consent including risks, benefits and alternatives and using sterile technique including cap and mask, sterile gown, glove and drape, the [right] arm was prepped and draped in the usual sterile fashion of full barrier technique with CHG. Following completion of Holstein Protocol the skin and soft tissues were anesthetized with 1% Lidocaine plain. Using ultrasound guidance, [right basilic] vein access was obtained on second attempt. Over an 0.018 wire through peel-away sheath, a [4FR single lumen] PICC line was positioned. Catheter length is [43 CM] internal length, [0 CM] external length, for a total trimmed length of [43 CM]. The procedure was performed in [S272]. Tip verification was performed by Emilio Perdomo with Sherlock 3CG. Tip located in SVC. Ultrasound was used to document vein patency and for needle entry. A formal ultrasound picture and cardiac rhythm strip was recorded. Vascular Orange Picker has released the line for use and it is currently dressed with a StatLock, Tegaderm, and CHG disc. Verification has been performed for blood return and line patency. Arm Circumference: [29.5 CM] Equipment: [Digital Railroad Power PICC Solo] Catheter Type: [4FR Single Lumen PICC] Lot #: [[id number]]
[2021-06-08 13:03] LABS: Glucose, Whole Blood 254 mg/dL (60-115)
--- NOTE | 2021-06-08 13:47 | MHC.CM.PN ---
PT ACCEPTNG BED OFFER AT [facility], NO PREFERENCE ON [facility], PT COMPLETED A HCP W/THIS CM AND PT/CM CONFIRMED W/PT'S AUNT THAT SHE WAS AGREEABLE TO BE PT'S HCP WHILE CM AT BEDSIDE, NO ALTERNATE HAS BEEN CHOSEN. HEALTH CARE AGENT IS JERRY JASON [phone]. PT PROVIDED W/EDUCATIONAL INFO, THE ORIGINAL AND TWO COPIES, COPY UPLOADED TO [employer] AND PLACED IN CHART. D/C PLAN: ANTIC D/C WED 06/09 TO [facility], [facility] FOR BLS TRANSPORT
--- NOTE | 2021-06-08 14:34 | HO.POSTANES ---
Post Anesthesia Evaluation Post Anesthesia Evaluation Vital Signs: Vital Signs Temp Pulse Resp BP Pulse Ox 06/08/21 13:41 98.3 F 83 16 103/59 L 94 06/08/21 07:46 98.5 F 91 18 139/65 94 06/08/21 05:18 17 148/68 H 06/08/21 04:00 98.9 F 77 17 143/70 H 94 Anesthesia: General Mental Status: Awake Pain Control: Satisfactory Nausea/Vomiting: None Hydration: Adequate Anesthesia-Related Issues: No Anes. Related Issues
[2021-06-08 16:59] LABS: Glucose, Whole Blood 335 mg/dL (60-115)
[2021-06-08] MEDS: 0.9 % Sodium Chloride Flush 10 ML SYRINGE 5 ML IVFLUSH (17:46)
[2021-06-08 20:13] LABS: Glucose, Whole Blood 291 mg/dL (60-115)
[2021-06-08] MEDS: Dorzolamide/Timolo 2.23%/0.68% 10 ML DRBTL 1 DROP EYE-BOTH (20:18)
[2021-06-09 02:43] VITALS: BP 151/81; PULSE 78; RESP 20; TEMP 36.1; O2SAT 95
[2021-06-09] MEDS: ceFAZolin Sodium/Dextrose,Iso 2 GM/50 ML PIGGYBACK IV ×2 (05:24→11:56)
[2021-06-09] MEDS: amLODIPine Besylate 10 MG TABLET PO (07:21)
[2021-06-09] MEDS: ARIPiprazole 20 MG TABLET PO (07:21)
[2021-06-09] MEDS: oxyCODONE HCl Immed Release 5 MG TABLET PO (07:21)
[2021-06-09] MEDS: lisinopriL 40 MG TABLET PO (07:21)
[2021-06-09] MEDS: 0.9 % Sodium Chloride Flush 3 ML SYRINGE IVFLUSH (07:22)
[2021-06-09] MEDS: Insulin Glargine,Hum.rec.anlog 100 UNIT/ML 10 ML VIAL 15 UNIT SUBCUT (07:22)
[2021-06-09] MEDS: Insulin Lispro 100 UNIT/ML 3 ML VIAL SUBCUT ×2 (07:22→11:55)
[2021-06-09] MEDS: 0.9 % Sodium Chloride Flush 10 ML SYRINGE 5 ML IVFLUSH ×2 (07:22→11:59)
[2021-06-09] MEDS: Dorzolamide/Timolo 2.23%/0.68% 10 ML DRBTL 2 DROP EYE-BOTH (07:23)
[2021-06-09 07:42] VITALS: BP 154/85; PULSE 90; RESP 18; TEMP 36.4; O2SAT 96
[2021-06-09 07:48] LABS: Glucose, Whole Blood 210 mg/dL (60-115)
[2021-06-09 11:33] VITALS: BP 123/59; PULSE 71; RESP 17; TEMP 36.3; O2SAT 96
[2021-06-09 11:42] LABS: Glucose, Whole Blood 304 mg/dL (60-115)
[2021-06-09 12:24] LABS: Influenza A PCR NEGATIVE (Negative); Influenza B PCR NEGATIVE (Negative); Resp Syncy Virus RNA Qual PCR NEGATIVE (Negative); SARS COV2 PCR INHOUSE NEGATIVE (Negative)
--- NOTE | 2021-06-09 12:34 | P.DS_ITS ---
DS: Providers Provider Date of Service: 06/09/21 Date of admission: 06/02/21 22:02 Primary care physician: James Wolfe MD Consults: 06/02/21 22:38 Consult to General Surgery Routine Consulting Provider: Jon Pham Reason for consultation: osteo, pt of Dr Smith Has provider been notified: No Consult to Infectious Diseases Routine Consulting Provider: Priyanka Norris Reason for consultation: osteo Has provider been notified: No Consult to Vascular Surgery Routine Consulting Provider: Isidro Lopez Reason for consultation: osteomyelitis Has provider been notified: No DS: Diagnosis Discharge Diagnosis (1) Bacteremia due to Gram-positive bacteria: Status: Acute (2) Osteomyelitis: Status: Acute DS: Summary Hospital Course Hospital Course: Patient was admitted for left foot osteomyelitis complicated by MSSA bacteremia. He was treated with IV cefazolin and will continue until 07/14/2021. Patient was seen by vascular performed left below-knee amputation. Patient tolerated surgery well. He will be discharged to longterm facility to complete his antibiotic course. he is expected to require less than 30 days at SNF. Time Spent with Patient Time attestation: Total time spent providing and/or coordinating discharge services: Discharge coordination time: Greater than 30 minutes Quality: Stroke Does the patient have a stroke diagnosis?: No Physical Exam Vital Signs: Vital Signs: Last Vital Signs Temp 97.4 F 06/09/21 11:33 Pulse 71 06/09/21 11:33 Resp 17 06/09/21 11:33 BP 123/59 L 06/09/21 11:33 Pulse Ox 96 06/09/21 11:33 Oxygen Flow Rate 6.0 06/07/21 11:44 BMI result Body Mass Index 25.9 Const Other:?Constitutional : Alert, oriented, not in distress Neck : Normal inspection, Supple Cardiovascular : RRR, S1 S2, no lower extremity edema Respiratory : Good bilateral air entry,? no crackles, wheezes or rhonchi Gastrointestinal:? soft, lax, Normal bowel sounds, Non tender Skin : Warm, Dry Musculoskeletal, left lower extremity? BKA with no drainage noted around dressing. Neurological : Alert & oriented x3, No focal deficit DS: Data Data Completed and Pending Pending studies at discharge: Pending at discharge 06/07/21 11:22 Surgical [PTH] Routine Labs on day of discharge: Laboratory Results - last 24 hr 06/08/21 06/08/21 06/08/21 13:00 16:35 20:08 POC Glucose 254 H 335 H 291 H Influenza Type A (PCR) Influenza Type B (PCR) RSV RNA Qual (PCR) SARS-CoV-2 RNA (RT-PCR) 06/09/21 06/09/21 06/09/21 07:08 11:35 11:39 POC Glucose 210 H 304 H Influenza Type A (PCR) NEGATIVE Influenza Type B (PCR) NEGATIVE RSV RNA Qual (PCR) NEGATIVE SARS-CoV-2 RNA (RT-PCR) NEGATIVE Preliminary micro results at discharge 06/04/21 13:55 Blood Culture - Preliminary Blood - Venous No growth after 48 hours. 06/04/21 13:55 Blood Culture - Preliminary Blood - Venous No growth after 48 hours. Discharge Plan Discharge Patient Disposition: er [facility] Discharge Diagnosis: om Referrals: James Wolfe MD [Primary Care Provider] - 1 Week Discharge Medications: New cefazolin in dextrose (iso-os) 2 gram/50 mL Piggyback 2 g IV Q8H Qty: 0 RF: 0 oxycodone 5 mg Tablet 5 mg PO Q4H PRN (Reason: moderate pain) Qty: 10 RF: 0 Continued lisinopril 40 mg tablet 40 mg PO DAILY Qty: 30 RF: 5 metformin 500 mg tablet 1,000 mg PO BID Qty: 120 RF: 4 amlodipine 10 mg tablet 10 mg PO DAILY Qty: 30 RF: 3 Trulicity 0.75 mg/0.5 mL pen injector 0.75 mg subcut QWEEK Qty: 2 RF: 0 dorzolamide-timolol 22.3-6.8 mg/mL drops 2 drp ophthalmic (eye) DAILY RF: 0 Jardiance 25 mg tablet 1 tab PO DAILY RF: 0 Rocklatan 0.02-0.005 % drops 1 drp ophthalmic (eye) DAILY RF: 0 dorzolamide-timolol 22.3-6.8 mg/mL drops 1 drp ophthalmic (eye) BEDTIME RF: 0 aripiprazole 20 mg tablet 20 mg PO DAILY RF: 0 (DME) lancets [TRUEplus Lancets] 33 gauge misc See Rx Instructions .ROUTE .MEDSUPPLY Qty: 100 RF: 11 Discharge Orders: Discharge Order (Routine); Ordered 06/09/21 Ordered By: Sinan Encinas Diet: advance to usual diet Activity on Discharge: As tolerated Stand Alone Forms: Patient Portal Discharge page Activity Restrictions/Additional Instructions: Wound care upon discharge: xeroform, 4x4 and Kerlix wrap to be changed daily. Please call Dr. Lopez at [phone] for 2 week follow up for suture and staple removal Care Plan Goals: recovery Health Concerns: bacteremia Plan of Treatment: ancef until jul 14 Assessment: see above
--- NOTE | 2021-06-09 13:10 | P.PNVS_ITS ---
Subjective Subjective Date of Service: 06/09/21 Patient reports: no new complaints and feels better Interval history: Patient seen and examined. Postop day 2 status post BKA. Doing extremely well. Pain well controlled. Eager to go to rehab. Physical Exam Vital Signs: Vital Signs: Last Vital Signs Temp 97.4 F 06/09/21 11:33 Pulse 71 06/09/21 11:33 Resp 17 06/09/21 11:33 BP 123/59 L 06/09/21 11:33 Pulse Ox 96 06/09/21 11:33 Oxygen Flow Rate 6.0 06/07/21 11:44 BMI result Body Mass Index 25.9 Const: General: cooperative, healthy appearing and comfortable Orientation/consciousness: oriented to person, oriented to place and oriented to time HENMT: Head: Yes normal to inspection Neck: Neck: Yes normal visual inspection Carotids: no bruits Chest: Chest palpation & inspection: normal inspection of the chest Resp: Effort & Inspection: normal respiratory effort and able to speak in complete sentences Auscultation: clear to auscultation bilaterally, no crackles, no rales, no rhonchi and no wheezes Cardio: Rate: regular rate Rhythm: regular rhythm Heart sounds: S1 normal heart sound present and S2 normal heart sound present Bruits: no carotid bruits Peripheral pulses: Peripheral pulses 2+ throughout GI: Inspection: Yes normal to inspection Skin: Other: Dressing clean dry intact Wounds: no wounds Hair: normal Neuro: General: oriented to person, oriented to place and oriented to time Cranial nerves: Yes CN's II-XII intact bilaterally and Yes Normal hearing present Cognition (Neuro): normal cognition Motor exam (neuro): 5/5 motor strength present throughout Extrem: Other: venous exam: No significant superficial varicosities or spider telangiectasias, minimal edema General: No clubbing, No cyanosis and No edema Psych: Appearance: grossly normal Mental Status: mental status grossly normal Speech and movement: Normal speech and movement present Progress Note: A&P Assessment and plan (1) Peripheral artery disease: Status: Acute Assessment and Plan: Patient is doing well status post left BKA. Dressing was changed amp site looks excellent. He is stable from my perspective for discharge. Have him see me in approximately 2 weeks upon discharge for removal of suture and mira. Fall Risk Details Current Medications: Current Medications Acetaminophen (Acetaminophen 325 Mg Tablet) 650 mg PO Q6H PRN PRN Reason: Pain, Mild (Pain Scale 1-3) Last Admin: 06/08/21 07:51 Dose: 650 mg Documented by: Acetaminophen (Acetaminophen 325 Mg Tablet) 650 mg PO ONCE PRN PRN Reason: Pain, Mild (Pain Scale 1-3) Albuterol Sulfate (Albuterol Sulfate (0.083%) 2.5 Mg/3 Ml Vial.Neb) 2.5 mg INHALE ONCE PRN PRN Reason: Wheezing Amlodipine Besylate (Amlodipine Besylate 10 Mg Tablet) 10 mg PO DAILY [facility]; Protocol Last Admin: 06/09/21 07:21 Dose: 10 mg Documented by: Aripiprazole (Aripiprazole 20 Mg Tablet) 20 mg PO DAILY [facility] Last Admin: 06/09/21 07:21 Dose: 20 mg Documented by: Dextrose (Dextrose 50 % 25 Gm/50 Ml Vial) 25 gm IVPUSH Q15M PRN; Protocol PRN Reason: per Hypoglycemia Standing Ord. Docusate Sodium (Docusate Sodium 100 Mg Capsule) 100 mg PO DAILY PRN PRN Reason: Constipation Dorzolamide/Timolol (Dorzolamide/Timolo 2.23%/0.68% 10 Ml Drbtl) 1 drop EYE- BOTH BEDTIME [facility] Last Admin: 06/08/21 20:18 Dose: 1 drop Documented by: Dorzolamide/Timolol (Dorzolamide/Timolo 2.23%/0.68% 10 Ml Drbtl) 2 drop EYE- BOTH DAILY [facility] Last Admin: 06/09/21 07:23 Dose: 2 drop Documented by: Fentanyl (Fentanyl Citrate/Pf 100 Mcg/2 Ml Vial) 50 mcg IVPUSH Q5M PRN; Protocol PRN Reason: Pain, Severe (Pain Scale 7-10) Last Admin: 06/07/21 12:32 Dose: 50 mcg Documented by: Fentanyl (Fentanyl Citrate/Pf 100 Mcg/2 Ml Vial) 25 mcg IVPUSH Q5M PRN; Protocol PRN Reason: Pain, Moderate (Pain Scale 4-6 Glucose (Glucose Gel 15 Gm Gel..Gram.) 15 gm PO Q15M PRN; Protocol PRN Reason: per Hypoglycemia Standing Ord. Hydromorphone HCl (Hydromorphone Hcl 0.5 Mg/0.5 Ml Syringe) 0.25 mg IVPUSH Q5M PRN; Protocol PRN Reason: Pain, Severe (Pain Scale 7-10) Cefazolin Sodium/Dextrose (Ancef) 2 gm in 50 mls @ 100 mls/hr IV Q8H [facility] Last Infusion: 06/09/21 12:30 Dose: Infused Documented by: Insulin Glargine (Insulin Glargine,Hum.Rec.Anlog 100 Unit/Ml 10 Ml Vial) 15 unit SUBCUT DAILY [facility] Last Admin: 06/09/21 07:22 Dose: 15 unit Documented by: Insulin Human Lispro (Insulin Lispro 100 Unit/Ml 3 Ml Vial) 0 unit SUBCUT QIDACHS [facility]; Protocol Last Admin: 06/09/21 11:55 Dose: 8 unit Documented by: Lisinopril (Lisinopril 40 Mg Tablet) 40 mg PO DAILY [facility]; Protocol Last Admin: 06/09/21 07:21 Dose: 40 mg Documented by: Morphine Sulfate (Morphine Sulfate 2 Mg/Ml Cartridge) 2 mg IVPUSH Q2H PRN; Protocol PRN Reason: severe pain Last Admin: 06/08/21 13:04 Dose: 2 mg Documented by: Ondansetron HCl (Ondansetron Hcl 4 Mg/2 Ml Vial) 4 mg IVPUSH Q8H PRN PRN Reason: Nausea and Vomiting Ondansetron HCl (Ondansetron Hcl 4 Mg/2 Ml Vial) 4 mg IVPUSH ONCE PRN PRN Reason: Nausea and Vomiting Oxycodone HCl (Oxycodone Hcl Immed Release 5 Mg Tablet) 5 mg PO Q4H PRN PRN Reason: moderate pain Last Admin: 06/09/21 07:21 Dose: 5 mg Documented by: Pharmacy Consult (Consult Rx Vancomycin Dosing) 1 each MISCELLANE DAILY PRN PRN Reason: Consult order Sodium Chloride (0.9 % Sodium Chloride Flush 3 Ml Syringe) 3 ml IVFLUSH QSHIFT [facility] Last Admin: 06/09/21 07:22 Dose: 3 ml Documented by: Sodium Chloride (0.9 % Sodium Chloride Flush 10 Ml Syringe) 5 ml IVFLUSH TID [facility] Last Admin: 06/09/21 11:59 Dose: 5 ml Documented by: Time Spent With Patient Time: Total time spent is greater than 50% in coordination of care (as documented) at patient's floor/unit and/or counseling patient: Time with patient: 15 - 24 minutes Procedures Date of Service Date of Service: 06/09/21 Quality Stroke Does the patient have a stroke diagnosis?: No VTE Prior VTE?: No VTE Risk Level:: Medical - moderate - high VTE Device Contraindication: Treatment Not Indicated VTE Drug Contraindication: N/A - Med Ordered
--- NOTE | 2021-06-09 13:32 | MHC.CM.PN ---
Addendum entered by Rosa Elena Jeter RN 06/09/21 13:34: CM SPOKE W/PT'S CHD STAFF PARUL GRAVES [phone] AND SHE WILL BRING BELONGINGS TO SNF FOR PT, EDIE ALSO GAVE CM CONTACT INFO FOR PT'S CHD REFRIGERATOR MOVER JOANNA SINGH [phone]. Original Note: PT DISCHARGING TO [facility] FOR IV ABX, PER SNF PT WILL NEED TO D/C BY 3:30PM OR THEY WILL NOT TAKE HIM TODAY D/T STAFFING LIMITATIONS, PT'S NURSE, [facility], HOSPITALIST AND UNIT AWARE, [facility] FOR BLS TRANSPORT
--- NOTE | 2021-06-10 09:13 | W.PM.OPN ---
Operative Note Operative Note Date of Service: 06/07/21 Narrative: Operative note by [facility] Preoperative diagnosis: Nonhealing left leg ulcer Postoperative diagnosis: Same Procedure: Left below-knee amputation Surgeon:Isidro Lopez M.D. Public Relations Player: None Anesthesia: General Specimens: 1 Drains: None Estimated blood loss: 100 mL Indications: Patient with severe line nonhealing left lower extremity ulcer. He has had a prior transmetatarsal amputation. He has developed several ulcers in that area that are nonhealing and nonviable he now presents for amputation. patient has signed the informed consent after reviewing risks, complications, benefits, and alternatives previously discussed with the patient. The patient was given the opportunity to ask any additional questions or voice any concerns. All questions were answered to the patient's satisfaction. Procedure in detail: Patient was brought to the operating room prior to which a time-out was called for patient identification site verification. Left leg was prepped and draped in standard surgical fashion. Curvilinear incision was created 10 cm below the tibial tuberosity. Posterior flap was created. Would down through the skin subcu muscle. We placed a lap pad below the tibia. Fibula was identified as well. We made reverse hockey stick shaped cut we using a power saw on the tibia. And we transected the fibula. Posterior flap was then created. Great vessels were tied off with a 2-0 silk tie. Bony edges were filed down. Adequate hemostasis was achieved. Was irrigated clean. Once this was accomplished posterior flap was reapproximated using 2 0 Polysorb on the fascial level. Superficial layer with 3-0 poly Sorb finally skin with a 2 0 nylon in a mattress fashion with skin clips. At the end of the case sponge instrument counts were correct. This note is constructed using voice recognition software. While every effort has been made to ensure accuracy, farmworker general errors may have been included. Thank you for allowing me to participate in the care of your patient. Yours sincerely, Isidro Lopez MD, FACS, R.P.V.I.
== END 2021-06-09 14:24 | disposition skilled nursing facility (03) | DRG 617 ==
LOC: HO.ED 20:24 → HO.EDOVER 22:34 → HO.S3 23:41
PROVIDERS: Nurse Practitioner Family; Student in an Organized Health Care Education/Training Program; Surgery Vascular Surgery; Admitting Provider Internal Medicine; Emergency Provider Emergency Medicine Emergency Medical Services; PCP Internal Medicine; Visit Provider Internal Medicine
PROC: 0Y6J0Z1 Detachment at Left Lower Leg, High, Open Approach (ICD-10-PCS; CPT 27880; principal; 2021-06-07 09:40)
DX: E11.69 Type 2 diabetes mellitus with other specified complication (principal); M86.672 Other chronic osteomyelitis, left ankle and foot; N39.0 Urinary tract infection, site not specified; E11.52 Type 2 diabetes mellitus with diabetic peripheral angiopathy with gangrene; R78.81 Bacteremia; E11.65 Type 2 diabetes mellitus with hyperglycemia; I10 Essential (primary) hypertension; E11.621 Type 2 diabetes mellitus with foot ulcer; B95.61 Methicillin susceptible Staphylococcus aureus infection as the cause of diseases classified elsewhere; L97.529 Non-pressure chronic ulcer of other part of left foot with unspecified severity; E11.40 Type 2 diabetes mellitus with diabetic neuropathy, unspecified; F17.210 Nicotine dependence, cigarettes, uncomplicated; Z71.6 Tobacco abuse counseling; Z20.822 Contact with and (suspected) exposure to COVID-19; Z79.84 Long term (current) use of oral hypoglycemic drugs; Z79.899 Other long term (current) drug therapy
CPT/HCPCS: 0241U; 36415; 36573; 73620; 73706; 80048; 80202; 80307; 81001; 82009; 82040; 82565; 82947; 83605; 85025; 85027; 85610; 86850; 86900; 86901; 87040; 87077; 87086; 87147; 87186; 87205; 87635; 88307; 88311; 93306; 94640; 96365; 96366; 96375; 97162; 99284; 99291; C1751; C1776; J0690; J2270; J2405; J2543; J3010; J3370; Q9967

== ENCOUNTER → 2021-06-24 09:49 | Outpatient (BNVA) | payer MEDICARE, MEDICAID, SELFPAY | PROVIDERS: PCP Internal Medicine; Visit Provider Surgery Vascular Surgery | DX: I73.9 Peripheral vascular disease, unspecified (principal) | CPT/HCPCS: 99212 ==

== ENCOUNTER → 2021-06-30 10:31 | Outpatient (BNVA) | payer MEDICARE, MEDICAID, SELFPAY | PROVIDERS: PCP Internal Medicine; Visit Provider Internal Medicine | DX: R78.81 Bacteremia (principal); B95.61 Methicillin susceptible Staphylococcus aureus infection as the cause of diseases classified elsewhere | CPT/HCPCS: 99212 ==

== ENCOUNTER → 2021-07-08 10:12 | Outpatient (BNVA) | payer MEDICARE, MEDICAID, SELFPAY | PROVIDERS: PCP Internal Medicine; Visit Provider Surgery Vascular Surgery | DX: Z47.81 Encounter for orthopedic aftercare following surgical amputation (principal); I73.9 Peripheral vascular disease, unspecified; Z89.512 Acquired absence of left leg below knee | CPT/HCPCS: 99212 ==

== ENCOUNTER → 2021-08-30 09:04 | Outpatient (BNVA) | payer MEDICARE, MEDICAID, SELFPAY | PROVIDERS: PCP Internal Medicine; Visit Provider Nurse Practitioner Gerontology | DX: E11.65 Type 2 diabetes mellitus with hyperglycemia (principal); E11.29 Type 2 diabetes mellitus with other diabetic kidney complication; E66.09 Other obesity due to excess calories; I10 Essential (primary) hypertension; R80.9 Proteinuria, unspecified; Z68.31 Body mass index [BMI] 31.0-31.9, adult | CPT/HCPCS: 82947; 99212 ==

== ENCOUNTER 2021-10-04 08:30 | Outpatient (REF) | payer MEDICARE, MEDICAID, SELFPAY ==
--- NOTE | ~2021-10-04 | US_ITS ---
EXAMINATION: US LOWER EXTREMITY DUPLEX, RIGHT CLINICAL INFORMATION: Peripheral vascular disease. History of left below-knee amputation. History of diabetes, hypertension and smoking. TECHNIQUE: Real-time ultrasound and Doppler techniques (integrating B-mode 2-D vascular images, Doppler spectral analysis and color flow Doppler imaging) were utilized to interrogate the lower extremities. COMPARISON: Arterial DYLAN and duplex on October 01, 2020. FINDINGS: RIGHT LEG: Common femoral artery: 76.2 cm/s, monophasic Profunda femoris artery: 29.3 cm/s, monophasic Superficial femoral artery (proximal): 50.7 cm/s, monophasic Superficial femoral artery (mid): 78.6 cm/s, monophasic Superficial femoral artery (distal): 58.5 cm/s, monophasic Popliteal artery: 37.1 cm/s, monophasic Posterior tibial artery: 43.6 cm/s, monophasic US/US arterial duplex LE RT IMPRESSION: Monophasic waveforms throughout the right lower extremity suggests inflow stenosis. No hemodynamically significant outflow stenosis identified on duplex.
== END 2021-10-04 08:31 | disposition home or self-care (01) ==
LOC: HO.US 08:30
PROVIDERS: Visit Provider Surgery Vascular Surgery
DX: I73.9 Peripheral vascular disease, unspecified (principal)
CPT/HCPCS: 93926

== ENCOUNTER → 2021-10-12 10:09 | Outpatient (BNVA) | payer MEDICARE, MEDICAID, SELFPAY | PROVIDERS: PCP Internal Medicine; Visit Provider Surgery Vascular Surgery | DX: I73.9 Peripheral vascular disease, unspecified (principal) | CPT/HCPCS: 99212 ==